=== PATIENT | female | born 1995 | race Caucasian/White ===

== ENCOUNTER 2020-02-29 05:07 | Inpatient (IN) | payer OTHER, SELFPAY ==
[2020-02-29] VITALS (112 sets, daily range): BP systolic 78–112; BP diastolic 39–69; PULSE 68–116; RESP 18; TEMP 36.9–37.2; O2SAT 99–100; BMI 28.4
--- NOTE | 2020-02-29 05:31 | LDADM ---
This patient, Kristina Denny, was admitted to Labor/Delivery/Recovery 103 on 02/29/20 at 05:07. Plans for labor, pain management and were discussed with patient. Patient/family oriented to hospital policies and general routines including ID bracelet, bed and alarms, visiting hours, pain management, procedures, bathroom and other care routines, personal items, smoking policy, room service/diet and guest tray routines, security routines, and visiting hours. Patient/Family are encouraged to report perceived risks to care and to ask questions if they do not understand what they are told or what they should do. See OBIX for further documentation.
[2020-02-29] MEDS: LACTATED RINGERS 1,000 ML 125 ML IV CONT ×2 (05:51→08:16)
[2020-02-29] MEDS: OXYTOCIN 30 UNITS/NS 500 ML 30 UNITS/500 ML BAG IV CONT (05:52)
[2020-02-29 06:04] LABS: Basophils Percent Auto 0.1 % (0.2-1.2); Eosinophils Absolute Auto 0.1 K/mm3 (0-0.3); Eosinophils Percent Auto 0.9 % (0-4.4); Hematocrit 35.6 % (37.0-47.0); Hemoglobin 11.6 g/dL (12.0-15.0); Immature Granulocyte Absolute 0.02 K/mm3 (0.00-0.031); Immature Granulocyte Percent A 0.3 % (0-0.5); Lymphocytes Absolute Auto 0.97 K/mm3 (0.9-3.2); Lymphocytes Percent Auto 14.4 % (18.3-44.2); Mean Corpuscular HGB Conc 32.6 g/dl (32-36); Mean Corpuscular Hemoglobin 30.9 pg (26-34); Mean Corpuscular Volume 94.9 fl (80-100); Mean Platelet Volume 11.4 fl (7.4-10.4); Monocytes Absolute Auto 0.7 K/mm3 (0.1-0.6); Monocytes Percent Auto 10.4 % (2.6-8.5); Neutrophils Percent Auto 73.9 % (45.5-73.1); Platelet Count Result 145 k/mm3 (150-375); Red Blood Count 3.75 M/mm3 (4.2-5.4); Red Cell Distribution Width 14.2 % (11.5-14.5); White Blood Count 6.8 K/mm3 (4.5-10.0)
--- NOTE | 2020-02-29 07:09 | WPDOBADMIT ---
Obstetrics - Admit Note Admission Note: record reviewed. No pertinent additions to the history and/or any subsequent changes in the physical findings that are not consistent with the expected course of the were found. Additions to the history and/or subsequent changes in the physical findings follow. None.Here for MIL. Cervix 2-3/50/-3 posterior AROM with clear fluid. FHTs reactive
--- NOTE | 2020-02-29 09:00 | P.PNAN_ITS ---
Anes - Eval Pre Procedure Procedure: Labor Epidural Date/Time: 02/29/20 09:00 Surgeon: Yoselin Preop Diagnosis: Labor Pain Pre Op Diagnosis: Induction Patient Data Age: 24 Gender: F Height: 5 ft 2 in Weight: 70.5 kg Last Vital Signs Temp 37.2 C 02/29/20 08:30 Pulse 84 02/29/20 08:46 BP 99/53 L 02/29/20 08:46 Pulse Ox 99 02/29/20 08:58 Allergies Allergy/AdvReac Type Severity Reaction Status Date / Time venom-honey bee Allergy Mild SWELLING Verified 02/29/20 05:50 Home Medications Medication Instructions Recorded Confirmed Type 1 tablet PO DAILY 10/26/19 02/29/20 History Laboratory Tests 02/29/20 02/29/20 02/29/20 05:45 05:45 05:45 WBC 6.8 K/mm3 K/mm3 (4.5-10.0) RBC 3.75 M/mm3 L M/mm3 (4.2-5.4) Hgb 11.6 g/dL L g/dL (12.0-15.0) Hct 35.6 % L % (37.0-47.0) MCV 94.9 fl fl (80-100) MCH 30.9 pg pg (26-34) MCHC 32.6 g/dl g/dl (32-36) RDW 14.2 % % (11.5-14.5) Plt Count 145 k/mm3 L k/mm3 (150-375) MPV 11.4 fl H fl (7.4-10.4) Immature Gran % (Auto) 0.3 % % (0-0.5) Neut % (Auto) 73.9 % H % (45.5-73.1) Lymph % (Auto) 14.4 % L % (18.3-44.2) [place] % (Auto) 10.4 % H % (2.6-8.5) Eos % (Auto) 0.9 % % (0-4.4) Baso % (Auto) 0.1 % L % (0.2-1.2) Lymph # (Auto) 0.97 K/mm3 K/mm3 (0.9-3.2) [place] # (Auto) 0.7 K/mm3 H K/mm3 (0.1-0.6) Eos # (Auto) 0.1 K/mm3 K/mm3 (0-0.3) Baso # (Auto) 0.0 K/mm3 K/mm3 (0.0-0.1) Abs Immat Gran (auto) 0.02 K/mm3 K/mm3 (0.00-0.031) Absolute Neuts (auto) 5.0 K/mm3 K/mm3 (1.3-6.7) Absolute Nucleated RBC 0.0 K/mm3 K/mm3 (0.0-0.012) Nucleated RBC % 0.0 % % (0.0-0.2) RPR Pending Blood Type A Positive Antibody Screen Negative Patient hx anesthesia problems: none Family hx anesthesia problems: none PMFSH Family History Family History Sibling Heart attack Father Cerebrovascular accident Thyroid cancer Social History Social History Smoking status: Never smoker Second hand tobacco smoke exposure: No Substance use: never Gender identity (if verbalized by the patient): Female Spiritual care concerns: No Exam Day of Procedure 02/29/20 09:00 Patient weight: normal Heart: regular rate and rhythm Lungs: clear to auscultation Airway: Mallampati scale class 1 Neurological: alert and oriented
[2020-02-29 10:10] LABS: Rapid Plasma Reagin Non-Reactive (NonReactive)
--- NOTE | 2020-02-29 13:51 | PM.OBPRVD ---
OB - Delivery Note Procedure Delivery date: 02/29/20 Procedure: events: Labor Induction Intrapartal events: None Induction method: AROM and per pitocin protocol Delivery monitor: external FHT and external uterine Route of delivery: Laceration description: Perineal - 1st Degree (and 1st degree periurethral) Delivery repair: vicryl (3-0 vicryl) Specimen: No Estimated blood loss (mL): 100 Anesthesia type: Epidural Disposition: floor Baby Weeks of gestation at delivery: 39 gender: Female presentation: vertex cord vessel description: 3 Vessels score one minute: 9 score five minutes: 9
--- NOTE | 2020-02-29 13:52 | PM.OBDSVD ---
DS: Diagnosis Discharge Diagnosis (1) 39 weeks gestation of : Code(s): Z3A.39 - 39 weeks gestation of Status: Acute (2) (normal spontaneous vaginal delivery): Code(s): O80 - Encounter for full-term uncomplicated delivery Status: Acute OB - DS: Summary OB Procedures : Ultrasound OB Procedures Intrapartum: Spontaneous Vag Delivery OB Procedures: : None Peripartum Data Delivery Method: Natural Vaginal Laceration description: Perineal - 1st Degree complications: none Status at Discharge Functional status at discharge: independent ambulation Overall status at discharge: patient is progressing back to baseline Time Spent with Patient Time attestation: Total time spent providing and/or coordinating discharge services: DS: Data Data Completed and Pending Labs on day of discharge: Labs from last 24 hours 02/29/20 02/29/20 02/29/20 05:45 05:45 05:45 WBC 6.8 RBC 3.75 L Hgb 11.6 L Hct 35.6 L MCV 94.9 MCH 30.9 MCHC 32.6 RDW 14.2 Plt Count 145 L MPV 11.4 H Immature Gran % (Auto) 0.3 Neut % (Auto) 73.9 H Lymph % (Auto) 14.4 L [place] % (Auto) 10.4 H Eos % (Auto) 0.9 Baso % (Auto) 0.1 L Lymph # (Auto) 0.97 [place] # (Auto) 0.7 H Eos # (Auto) 0.1 Baso # (Auto) 0.0 Abs Immat Gran (auto) 0.02 Absolute Neuts (auto) 5.0 Absolute Nucleated RBC 0.0 Nucleated RBC % 0.0 RPR Non-reactive Blood Type A Positive Antibody Screen Negative Discharge Plan Discharge Attending physician on discharge: Mary Wyatt Discharging Clinician: Mary Wyatt Anticipated Discharge Date/Time: 03/02/20 07:53 Patient Disposition: Home, Self-Care Activity: pelvic rest Diet: regular Discharge Instructions: Education: Mom and Baby Guide Given to: Mother Follow-Up: Call your delivering provider's office for an appointment to be seen in: 6 Weeks Mom and baby [facility] come [facility] for the follow-up appointment. Appointment Date/Time: March 02, 2020 at 8:00 am What to expect at your follow-up visit: Blood Pressure Check Physical Assessment Call [phone] if you are unable to keep your appointment time. BREAST CARE: 1. Wear a snug supportive bra. 2. For engorgement discomfort: Breast Feeding: A. Apply warm moist washcloths B. Express milk as needed to relieve engorgement C. Wear loose clothing 3. For sore nipples: A. Identify correct latch-on B. Apply warm moist washcloths before and after nursing C. Air dry nipples after nursing D. May apply Lansinoh cream to nipples EPISIOTOMY/PERINEAL CARE: 1. Until bleeding stops, use your nohemy bottle after urinating 2. Change your pad frequently throughout the day 3. You may take sitz baths several times a day (fill your bathtub with warm water and soak for 20 minutes.) Do NOT bathe in the water 4. No tub baths until seen by your physician - You may shower ACTIVITY: 1. Rest as much as possible. 2. Do not exercise or lift anything heavier than your baby (such as laundry or other children.) 3. Avoid stairs or driving as much as possible. 4. Do not put anything into the vagina. No douching, tampons, or sexual activity until seen by physician. NOTIFY PHYSICIAN IF YOU HAVE ANY QUESTIONS OR IF ANY OF THE FOLLOWING SYMPTOMS OCCUR: 1. If your episiotomy becomes red, swollen, or more painful than what you have experienced in the hospital. 2. If your vaginal bleeding becomes foul smelling. 3. If your vaginal bleeding becomes more heavy than a period or if your bleeding changes from pink to bright red. However, you may pass an occasional walnut-sized clot once or twice for the first week . 4. If you experience a sharp, shooting pain in you calves. 5. If you discover a hard, reddened area on
[2020-02-29] MEDS: OXYTOCIN 30 UNITS/NS 500 ML 30 UNITS/500 ML BAG 125 UNITS IV CONT (14:17)
[2020-02-29] MEDS: BENZOCAINE 20% AER SPR (*SP) 56 GM CAN 1 SPRAY TOPICAL (15:29)
[2020-02-29] MEDS: WITCH HAZEL 40 PADS 1 PAD TOPICAL (15:29)
[2020-02-29] MEDS: IBUPROFEN 600 MG TABLET PO (15:29)
--- NOTE | 2020-02-29 17:45 | PC.NURSE ---
Patient transferred to post room #291 via wsheelchair. Support person present. Oriented to unit, room, information board, rooming in, admission packet and security measures. Patient verbalizes understanding.
[2020-03-01] MEDS: IBUPROFEN 600 MG TABLET PO ×2 (02:15→08:22)
[2020-03-01 05:12] LABS: Hematocrit 31.8 % (37.0-47.0)
[2020-03-01 08:00] VITALS: BP 94/61; PULSE 89; RESP 18; TEMP 36.6
[2020-03-01] MEDS: MULTIVIT/MIN/PREN/FOL AC/IRON TABLET 1 TAB PO (08:22)
[2020-03-01] MEDS: BENZOCAINE 20% AER SPR (*SP) 56 GM CAN 1 SPRAY TOPICAL (08:22)
[2020-03-01] MEDS: DOCUSATE SODIUM 100 MG CAPSULE PO (08:22)
[2020-03-01] MEDS: WITCH HAZEL 40 PADS 1 PAD TOPICAL (08:22)
--- NOTE | 2020-03-01 09:47 | PM.OBPNVD ---
OB - PN: Subj Subjective Date/time seen: 03/01/20 09:47 S: doing well no complaints desires home today OB - PN: Obj Data Labs CBC & Chem 7: 03/01/20 04:50 Labs: Laboratory Results - last 24 hr 02/29/20 03/01/20 05:45 04:50 Hgb 10.0 L Hct 31.8 L RPR Non-reactive OB - PN A/P Assessment and Plan (1) (normal spontaneous vaginal delivery): Code(s): O80 - Encounter for full-term uncomplicated delivery Status: Acute Assessment and Plan: d/c home . patient unsure of control at this time. Time Spent With Patient Time: Total time spent is greater than 50% in coordination of care (as documented) at patient's floor/unit and/or counseling patient: Exam GI: Other: firm fundus below umbilicus
--- NOTE | 2020-03-01 11:00 | PC.NURSE ---
Patient was given the opportunity to view the discharge video Mother & Baby Care, The First Two Weeks and to ask questions. Patient declined viewing the video and has been given the mother/baby guide for home reference.
--- NOTE | 2020-03-01 13:53 | PC.NURSE ---
Self care and infant care discharge instructions given including follow up visit date and time. Mother verbalized understanding. No questions or concerns voiced. Very pleasant and cooperative. at side.
--- NOTE | 2020-03-01 13:57 | WPDANLDPN2 ---
Anes-Prog Note L&D Date/Time: 03/01/20 13:57 Comfortable throughout: labor and delivery Neuraxial method: epidural Epidural/Spinal procedure site: clean & non-tender Neuro status: Neuro function grossly intact. Cardiovascular status: normal Respiratory status: normal Airway patency: baseline Mental status: baseline Post-Op hydration status: normal Vital Signs: Last Vital Signs Temp 36.6 C 03/01/20 08:00 Pulse 89 03/01/20 08:00 Resp 18 03/01/20 08:00 BP 94/61 L 03/01/20 08:00 Pulse Ox 100 02/29/20 13:28 Post-procedural complaints: none Patient feedback: Patient satisfied with anesthetic care.
[2020-03-02 08:47] VITALS: BP 107/60; PULSE 79; RESP 16; TEMP 36.9
== END 2020-03-01 15:34 | disposition home or self-care (01) | DRG 806 ==
LOC: ANHLDR 13:53 → ANHOB2 03-01 13:58 → ANHLDR 03-02 11:33 → ANHOB2 03-02 11:33
PROVIDERS: Admitting Provider Obstetrics & Gynecology Gynecology; Visit Provider Obstetrics & Gynecology
DX: O69.81X0 Labor and delivery complicated by cord around neck, without compression, not applicable or unspecified (principal); S37.33XA Laceration of urethra, initial encounter; Z37.0 Single live birth; Z3A.39 39 weeks gestation of pregnancy; Z23 Encounter for immunization
CPT/HCPCS: 36415; 85014; 85018; 85025; 86592; 86850; 86900; 86901; A9270; J2590; J2795; J7120

== ENCOUNTER 2022-05-28 17:01 | Emergency (ER) | payer OTHER, SELFPAY ==
[2022-05-28 17:16] VITALS: BP 119/55; PULSE 75; RESP 16; TEMP 36.5; O2SAT 100
--- NOTE | 2022-05-28 17:17 | ED_ITS ---
HPI - Back Pain/Injury General Chief Complaint: Back Pain/Injury Stated Complaint: back pain Time Seen by Provider: 05/28/22 17:17 History of Present Illness HPI Narrative: 26-year-old female presents to the emergency room complaints of lower back pain. Patient states pain began about an hour ago and is worse with rotational and lateral bending movements. Patient denies any radiating pain, any paresthesias. Patient denies any difficulty with her bowel or bladder habits. Denies any saddle anesthesia. Denies injury. Related Data Home Medications Medication Instructions Recorded Confirmed vit no.133-ferrous 1 tablet PO DAILY 10/26/19 02/29/20 fumarate 28 mg-folic acid 800 mcg tablet () Allergies Allergy/AdvReac Type Severity Reaction Status Date / Time venom-honey bee Allergy Mild SWELLING Verified 05/28/22 17:15 Review of Systems Review of Systems: GENERAL: Well-appearing, well-nourished, no physical limitations, and in no acute distress. HEAD: Normocephalic, atraumatic. EYES: Conjunctivae normal, PERRLA and EOMI. CHEST: Clear to auscultation. No respiratory distress. No wheezes rales or rhonchi. No tenderness. HEART: Regular rate and rhythm. No murmur heard. Normal peripheral pulses. BACK: No CVA tenderness; No cervical/thoracic/lumbar tenderness, step-offs, bony abnormality; FROM; and elicited with bilateral rotation, forward flexion, lateral bend. Tenderness over the thoracolumbar fascia. EXTREMITIES: Normal range of motion. No edema. No clubbing or cyanosis SKIN: Warm, dry, no rash. No noted wounds NEURO: No focal deficits. Alert and oriented x3. MAEW. CN's II-XI intact bilaterally, normal gait PSYCH: Cooperative. Normal mood and affect. [facility] Family History Family History Sibling Heart attack Father Cerebrovascular accident Thyroid cancer Social History Social History Smoking status: Never smoker Second hand tobacco smoke exposure: No Substance use: never Gender identity (if verbalized by the patient): Female Spiritual care concerns: No Discharge Plan Discharge Clinical Impression: Low back pain Patient Disposition: Home, Self-Care Condition: Stable Instructions: Antibiotic Form, Back Pain (ED) Additional Instructions: May apply heat to the affected area. Your pain is reproduced with movement, which indicates that this is muscular pain also encourage you to stretch. Return if you develop any numbness or tingling in your saddle area, or become incontinent of your bowel or bladder. Prescriptions: New methocarbamol 500 mg tablet 500 mg PO TID 7 Days Qty: 21 0RF naproxen 500 mg tablet 500 mg PO BID 7 Days Qty: 14 0RF No Action 28-800 mg-mcg Tablet 1 tablet PO DAILY Dermoplast (with menthol) 20-0.5 % Aerosol 1 spray topical PRN PRN (Reason: Perineal Discomfort) 0RF KPN Tablet 1 tab PO DAILY 0RF Follow-up/Referrals: Carolina,Jef Denny MD [Primary Care Provider] - Time of Disposition: 17:21
== END 2022-05-28 17:30 | disposition home or self-care (01) ==
PROVIDERS: Emergency Provider Nurse Practitioner Family; PCP Family Medicine
DX: M54.50 Low back pain, unspecified (principal)
CPT/HCPCS: 99283

== ENCOUNTER 2024-10-14 10:24 | Outpatient (CLI) | payer BC, SELFPAY ==
--- NOTE | ~2024-10-14 | US_ITS ---
EXAMINATION: US OB follow up DATE: 10/14/2024 10:46 INDICATION: Size less than dates. Third trimester. TECHNIQUE: Real-time ultrasound of the pelvis was performed. COMPARISON: None. FINDINGS: There is a single living fetus in vertex presentation. The placenta is anterior. heart rate is 138 beats per minute (bpm). The amniotic fluid index is 12.2 cm, which is normal. The following biometric data were obtained: Biparietal diameter (BPD): 8.6 cm; head circumference (HC): 31.8 cm; abdominal circumference (AC): 30 .5 cm; femur length (FL): 6.6 cm. These measurements are concordant. Estimated weight is 2433 g +/- 365 g, which correlates with the 38th percentile when 11/20/24 is used as estimated date of delivery. As single measurements, these parameters are each equal to the following estimated gestational ages: BPD: 34 weeks 5 days. HC: 35 weeks 5 days. AC: 34 weeks 3 days. FL: 33 weeks 6 days. estimated gestational age based solely on measurements from this exam is 34 weeks 5 days +/- 2 weeks 3 days. IMPRESSION: 1. Single living fetus in vertex presentation. 2. Estimated weight is 2433 g +/- 365 g, which correlates with the 38th percentile when 5 is used as estimated date of delivery. Reviewed, dictated and finalized at location A. FA[employer]URING OPERATIONS MANAGER IMPRESSION: 1. Single living fetus in vertex presentation. 2. Estimated weight is 2433 g +/- 365 g, which correlates with the 38th percentile when 11/20/24 is used as estimated date of delivery.
== END 2024-10-14 10:25 | disposition home or self-care (01) ==
PROVIDERS: PCP Advanced Practice Midwife; Visit Provider Advanced Practice Midwife
DX: O36.5930 Maternal care for other known or suspected poor fetal growth, third trimester, not applicable or unspecified (principal); Z3A.00 Weeks of gestation of pregnancy not specified
CPT/HCPCS: 76816

== ENCOUNTER 2024-11-22 06:15 | Inpatient (IN) | payer BC, SELFPAY ==
[2024-11-22] VITALS (125 sets, daily range): BP systolic 69–121; BP diastolic 38–85; PULSE 70–204; RESP 18; TEMP 36.2–36.8; O2SAT 97–100; BMI 30.2
--- NOTE | 2024-11-22 06:15 | LDADM ---
This patient, Kristina Denny, was admitted to Labor/Delivery/Recovery 108 on 11/22/24 at 06:15. Plans for labor, pain management and were discussed with patient. Patient/family oriented to hospital policies and general routines including ID bracelet, bed and alarms, visiting hours, pain management, procedures, bathroom and other care routines, personal items, smoking policy, room service/diet and guest tray routines, security routines, and visiting hours. Patient/Family are encouraged to report perceived risks to care and to ask questions if they do not understand what they are told or what they should do. See OBIX for further documentation.
[2024-11-22 08:15] LABS: Basophils Percent Auto 0.1 % (0.2-1.2); Eosinophils Absolute Auto 0.1 K/mm3 (0-0.3); Eosinophils Percent Auto 1.1 % (0-4.4); Hematocrit 33.7 % (37.0-47.0); Hemoglobin 10.3 g/dL (12.0-15.0); Immature Granulocyte Absolute 0.03 K/mm3 (0.00-0.031); Immature Granulocyte Percent A 0.4 % (0-0.5); Lymphocytes Absolute Auto 1.31 K/mm3 (0.9-3.2); Lymphocytes Percent Auto 17.4 % (18.3-44.2); Mean Corpuscular HGB Conc 30.6 g/dl (32-36); Mean Corpuscular Hemoglobin 27.1 pg (26-34); Mean Corpuscular Volume 88.7 fl (80-100); Mean Platelet Volume 10.8 fl (7.4-10.4); Monocytes Absolute Auto 0.7 K/mm3 (0.1-0.6); Monocytes Percent Auto 8.7 % (2.6-8.5); Neutrophils Absolute Auto 5.5 K/mm3 (1.3-6.7); Neutrophils Percent Auto 72.3 % (45.5-73.1); Platelet Count Result 186 k/mm3 (150-375); Red Cell Distribution Width 17.1 % (11.5-14.5); White Blood Count 7.6 K/mm3 (4.5-10.0)
[2024-11-22] MEDS: LACTATED RINGERS 1,000 ML 125 ML IV CONT (08:19)
[2024-11-22] MEDS: OXYTOCIN 30 UNITS/NS 500 ML 30 UNITS/500 ML BAG IV CONT (08:20)
[2024-11-22 09:06] LABS: HIV 1/2 Ab P24 Ag Result Negative (Negative)
--- NOTE | 2024-11-22 09:40 | WPDOBADMIT ---
Obstetrics - Admit Note Admission Note: record reviewed. No pertinent additions to the history and/or any subsequent changes in the physical findings that are not consistent with the expected course of the were found. Additions to the history and/or subsequent changes in the physical findings follow. Here for MIL at 39 wks. Cervix now 3-4/70/-2 AROM with clear fluid. FHTs reactive.
[2024-11-22 10:53] LABS: Rapid Plasma Reagin Non-Reactive (NonReactive)
--- NOTE | 2024-11-22 11:02 | P.PNAN_ITS ---
Anes - Eval Pre Procedure Procedure: Labor epidural Date/Time: 11/22/24 11:02 Surgeon: Yoselin Preop Diagnosis: Pain during labor Pre Op Diagnosis: Induction of Labor Patient Data Age: 29 Gender: F Height: 1.57 m Weight: 75 kg Last Vital Signs Temp 36.6 C 11/22/24 09:16 Pulse 92 11/22/24 11:00 BP 73/47 L 11/22/24 11:00 O2 Del Method Room Air 11/22/24 10:41 Allergies Allergy/AdvReac Type Severity Reaction Status Date / Time venom-honey bee Allergy Mild SWELLING Verified 05/28/22 17:15 Home Medications ?Medication ?Instructions ?Recorded ?Confirmed ?Type vit no.133-ferrous 1 tablet PO DAILY 10/26/19 11/22/24 History fumarate 28 mg-folic acid 800 mcg tablet () benzocaine 20 %-menthol 0.5 % 1 spray topical PRN PRN Perineal 03/01/20 10/25/24 Rx topical aerosol (Dermoplast (with Discomfort menthol)) prenat.vits,xiomara,flp-eexj-rwzsp 1 tab PO DAILY 03/01/20 11/22/24 Rx (KPN tablet) naproxen 500 mg tablet 500 mg PO BID 7 days #14 tabs 05/28/22 10/25/24 Rx aspirin 81 mg capsule 81 mg PO DAILY 10/25/24 11/22/24 History cholecalciferol (vitamin D3) 50 50 mcg PO DAILY 10/25/24 11/22/24 History mcg (2,000 unit) tablet (D3 DOTS) ferric maltol 30 mg capsule 30 mg PO BID 10/25/24 10/25/24 History (Accrufer) Laboratory Tests 11/22/24 08:01 WBC 7.6 K/mm3 (4.5-10.0) RBC 3.80 L M/mm3 (4.2-5.4) Hgb 10.3 L g/dL (12.0-15.0) Hct 33.7 L % (37.0-47.0) MCV 88.7 fl (80-100) MCH 27.1 pg (26-34) MCHC 30.6 L g/dl (32-36) RDW 17.1 H % (11.5-14.5) Plt Count 186 k/mm3 (150-375) MPV 10.8 H fl (7.4-10.4) Immature Gran % (Auto) 0.4 % (0-0.5) Neut % (Auto) 72.3 % (45.5-73.1) Lymph % (Auto) 17.4 L % (18.3-44.2) [place] % (Auto) 8.7 H % (2.6-8.5) Eos % (Auto) 1.1 % (0-4.4) Baso % (Auto) 0.1 L % (0.2-1.2) Lymph # (Auto) 1.31 K/mm3 (0.9-3.2) [place] # (Auto) 0.7 H K/mm3 (0.1-0.6) Eos # (Auto) 0.1 K/mm3 (0-0.3) Baso # (Auto) 0.0 K/mm3 (0.0-0.1) Abs Immat Gran (auto) 0.03 K/mm3 (0.00-0.031) Absolute Neuts (auto) 5.5 K/mm3 (1.3-6.7) Absolute Nucleated RBC 0.000 K/mm3 (0.0-0.012) Nucleated RBC % 0.0 % (0.0-0.2) RPR Non-reactive (NonReactive) HIV 1&2 Ab/P24 Ag 4thGn Negative (Negative) Blood Type A Positive Antibody Screen Negative Patient hx anesthesia problems: none Family hx anesthesia problems: none Results Review: All pre-operative results and documents have been reviewed as part of the pre- operative evaluation. [facility] Family History Family History Sibling Thyroid cancer Father Cerebrovascular accident Heart attack Hypertension Social History Social History Smoking status: Never smoker Second hand tobacco smoke exposure: No Substance use: never Do You Feel Safe in your Home?: Yes Lack of Transportation: No Lack of Food: Never True Current Housing: I Have Housing Concerned About Future Housing: No Difficulty Paying Gas/Electric Bills: No Difficulty Paying for Meds: No Currently Unemployed: No Education: Bachelor's Degree Difficulty w/ Childcare or Family Care: No Gender identity (if verbalized by the patient): Female Spiritual care concerns: No Exam Day of Procedure 11/22/24 11:02 Patient weight: overweight Heart: regular rate and rhythm Lungs: clear to auscultation Airway: Mallampati scale Neurological: alert and oriented
--- NOTE | 2024-11-22 15:26 | PM.OBPRVD ---
OB - Vaginal Delivery Note Procedure Delivery date: 11/22/24 Induction method: AROM and Per Pitocin Protocol Delivery monitor: External FHT and External Uterine Route of delivery: Episiotomy description: None Laceration Description: Perineal - 1st Degree Specimen: No Quantitative Blood Loss (ml): 50 Anesthesia type: Epidural Disposition: Floor Complications: No immediate complications Baby Date of : 11/22/24 Gestational Age by Date: 39 gender: Female presentation: vertex position: Right Occiput Anterior Placenta delivery description: Spontaneous Cord Vessel Description: 3 Vessels and Delayed Cord Clamping score one minute: 9 score five minutes: 9
--- NOTE | 2024-11-22 15:27 | PM.OBDSVD ---
DS: Admitting Diagnosis Discharge Date 11/23/24 Admitting Diagnosis IUP 39 wks for IMELDA DS: Discharge Diagnosis Discharge Diagnosis (1) (normal spontaneous vaginal delivery): Code(s): O80 - Encounter for full-term uncomplicated delivery Status: Acute OB - DS: Summary OB Procedures : Ultrasound OB Procedures Intrapartum: Spontaneous Vag Delivery OB Procedures: : None Peripartum Data Infant Delivery Method: Natural Vaginal Laceration Description: Perineal - 1st Degree Episiotomy description: None complications: none Status at Discharge Functional status at discharge: independent ambulation Overall status at discharge: patient is progressing back to baseline Time Spent with Patient Time attestation: Total time spent providing and/or coordinating discharge services: DS: Data Data Completed and Pending Labs on day of discharge: Labs from last 24 hours 11/22/24 08:01 WBC 7.6 RBC 3.80 L Hgb 10.3 L Hct 33.7 L MCV 88.7 MCH 27.1 MCHC 30.6 L RDW 17.1 H Plt Count 186 MPV 10.8 H Immature Gran % (Auto) 0.4 Neut % (Auto) 72.3 Lymph % (Auto) 17.4 L [place] % (Auto) 8.7 H Eos % (Auto) 1.1 Baso % (Auto) 0.1 L Lymph # (Auto) 1.31 [place] # (Auto) 0.7 H Eos # (Auto) 0.1 Baso # (Auto) 0.0 Abs Immat Gran (auto) 0.03 Absolute Neuts (auto) 5.5 Absolute Nucleated RBC 0.000 Nucleated RBC % 0.0 RPR Non-reactive HIV 1&2 Ab/P24 Ag 4thGn Negative Blood Type A Positive Antibody Screen Negative Discharge Plan Discharge Attending physician on discharge: Mary Wyatt Discharging Clinician: Mary Wyatt Anticipated Discharge Date/Time: 11/24/24 15:27 Patient Disposition: Home, Self-Care Activity: may shower and pelvic rest Diet: regular Patient Instructions: Antibiotic Form Patient Language: Austrian Stand Alone Forms: General Discharge Information Follow-up/Referrals: Mary Wyatt MD [Physician] - 6 Weeks Discharge Medications: Continued 28-800 mg-mcg Tablet 1 tablet PO DAILY Dermoplast (with menthol) 20-0.5 % Aerosol 1 spray topical PRN PRN (Reason: Perineal Discomfort) 0RF KPN Tablet 1 tab PO DAILY 0RF naproxen 500 mg tablet 500 mg PO BID 7 Days Qty: 14 0RF cholecalciferol (vitamin D3) [D3 DOTS] 50 mcg (2,000 unit) tablet 50 mcg PO DAILY Accrufer 30 mg capsule 30 mg PO BID Discontinued aspirin 81 mg capsule 81 mg PO DAILY Date of admission: 11/22/24 06:15 Primary Care Provider: UNKNOWN,DOCTOR Admitting Provider: Mary Wyatt Attending physician on admission: Mary Wyatt Condition: Stable
[2024-11-22] MEDS: METHYLERGONOVINE MALEATE 0.2 MG/ML VIAL IM (15:32)
[2024-11-22] MEDS: OXYTOCIN 30 UNITS/NS 500 ML 30 UNITS/500 ML BAG 125 UNITS IV CONT (16:07)
[2024-11-23 00:11] VITALS: BP 96/58; PULSE 86; RESP 16; TEMP 36.8; O2SAT 98
[2024-11-23 04:56] LABS: Hematocrit 31.6 % (37.0-47.0); Hemoglobin 9.8 g/dL (12.0-15.0)
--- NOTE | 2024-11-23 07:52 | WPDANLDPN2 ---
Anes-Prog Note L&D Date/Time: 11/23/24 07:52 Comfortable throughout: labor and delivery Neuraxial method: epidural Epidural/Spinal procedure site: clean & non-tender Neuro status: Neuro function grossly intact. Cardiovascular status: normal Respiratory status: normal Airway patency: baseline Mental status: baseline Post-Op hydration status: normal Vital Signs: Last Vital Signs Temp 36.8 C 11/23/24 00:11 Pulse 86 11/23/24 00:11 Resp 16 11/23/24 00:11 BP 96/58 L 11/23/24 00:11 Pulse Ox 98 11/23/24 00:11 O2 Del Method Room Air 11/22/24 19:28 Pain score (VAS): 11/19 I/O: Intake & Output 11/22/24 11/22/24 11/23/24 15:59 23:59 07:59 Intake Total 500 Output Total 50 150 Balance -50 350 Post-procedural complaints: none Patient feedback: Patient satisfied with anesthetic care.
--- NOTE | 2024-11-23 08:04 | P.PNOB_ITS ---
OB - PN: Subj Subjective Date/time seen: 11/23/24 08:04 Patient comments: no complaints and pain well controlled baby status: doing well OB - PN: Obj Data Labs 11/23/24 03:33 Labs: Laboratory Results - last 24 hr 11/22/24 11/23/24 08:01 03:33 WBC 7.6 RBC 3.80 L Hgb 10.3 L 9.8 L Hct 33.7 L 31.6 L MCV 88.7 MCH 27.1 MCHC 30.6 L RDW 17.1 H Plt Count 186 MPV 10.8 H Immature Gran % (Auto) 0.4 Neut % (Auto) 72.3 Lymph % (Auto) 17.4 L [place] % (Auto) 8.7 H Eos % (Auto) 1.1 Baso % (Auto) 0.1 L Lymph # (Auto) 1.31 [place] # (Auto) 0.7 H Eos # (Auto) 0.1 Baso # (Auto) 0.0 Abs Immat Gran (auto) 0.03 Absolute Neuts (auto) 5.5 Absolute Nucleated RBC 0.000 Nucleated RBC % 0.0 RPR Non-reactive HIV 1&2 Ab/P24 Ag 4thGn Negative Blood Type A Positive Antibody Screen Negative OB - PN A/P Plan day: 1 Plan: routine care, discharge home and follow up 6 weeks Time Spent With Patient Time: Total time spent is greater than 50% in coordination of care (as documented) at patient's floor/unit and/or counseling patient: Exam 2 : Bimanual exam- vagina & uterus: other (Uterus firm, nt @U)
[2024-11-23 08:10] VITALS: BP 106/62; PULSE 84; RESP 18; TEMP 36.8; O2SAT 97
[2024-11-23] MEDS: DOCUSATE SODIUM 100 MG CAPSULE PO ×2 (08:46→16:19)
[2024-11-23] MEDS: MULTIVIT/MIN/PREN/FOL AC/IRON TABLET 1 TAB PO (08:46)
[2024-11-23] MEDS: POLYSACCHARIDE IRON COMPLEX 150 MG CAPSULE PO ×2 (08:46→16:19)
--- NOTE | 2024-11-23 09:00 | PC.NURSE ---
Introductions were made, consulted with patient regarding needs related to . Mother verbalizes she is able to independently latch with appropriate positioning and alignment. She denies any nipple discomfort and is responsively . is currently meeting outcomes for weight, output, jaundice, blood sugar and feeding frequencies of 8-12 times in 24 hours. Mother declines any additional assistance or education at this time. Mother is encouraged to call for assistance if her infant doesn?t latch, pain with latching, questions or concerns. New patient folder provided for education visuals.
[2024-11-23 12:35] VITALS: BP 97/57; PULSE 90; RESP 18; TEMP 36.6; O2SAT 97
[2024-11-23] MEDS: IBUPROFEN 600 MG TABLET PO (16:19)
[2024-11-23 19:15] VITALS: BP 116/54; PULSE 91; RESP 14; TEMP 36.7; O2SAT 98
[2024-11-24] MEDS: IBUPROFEN 600 MG TABLET PO (07:51)
[2024-11-24] MEDS: POLYSACCHARIDE IRON COMPLEX 150 MG CAPSULE PO (07:51)
[2024-11-24] MEDS: MULTIVIT/MIN/PREN/FOL AC/IRON TABLET 1 TAB PO (07:51)
[2024-11-24] MEDS: DOCUSATE SODIUM 100 MG CAPSULE PO (07:51)
--- NOTE | 2024-11-24 07:54 | P.PNOB_ITS ---
OB - PN: Subj Subjective Date/time seen: 11/24/24 07:54 Patient comments: no complaints and pain well controlled baby status: doing well OB - PN: Obj Data Labs 11/23/24 03:33 OB - PN A/P Plan day: 2 Plan: routine care, discharge home and follow up 6 weeks Time Spent With Patient Time: Total time spent is greater than 50% in coordination of care (as documented) at patient's floor/unit and/or counseling patient: Exam 2 : Bimanual exam- vagina & uterus: other (Uterus firm, nt @U)
[2024-11-24 08:20] VITALS: BP 98/54; PULSE 81; RESP 16; TEMP 36.8; O2SAT 99
--- NOTE | 2024-11-24 09:30 | PC.NURSE ---
Consulted with mother concerning needs and she shared her ability to independently latch infant optimally without pain. There is a doctor's order to supplement after each . Baby has been one one side at a time. Mom has a haakaa she will use for some passive pumping and she also has an electric breast pump. She declines a NCC referral. Mother is feeding appropriately for growth of infant and understands stimulating infant to eat if needed. Infant has had appropriate feedings in the last 24 hours meets the outcomes for weight, output, blood sugar and jaundice at this time. Reinforced understanding of milk production, transition of milk, signs of adequate intake, transition of stool, prevention/relief of engorgement, plugged ducts, mastitis, and when to call a provider using the resource of the feeding sheet along with the mom and baby guide. Mother voiced understanding of the information shared, is confident to continue effectively her infant at home, when to call for assistance, denies any additional assistance or education at this time. Reported to the Primary RN.
[2024-11-25 11:24] VITALS: BP 121/65; PULSE 76; RESP 18; TEMP 36.8; O2SAT 100
--- OUTSIDE RECORDS SUMMARY | 2024-11-29 03:56 | XMS_ITS | Encounter Summary ---
Author Organization [facility] Address [address] [place] [address] Phone Care Team Providers Care Process Treater Name Role Phone Jef Figueroa MD Primary Care Provider [phone] Reason for Visit * Reason Comments Sore Throat Encounter Details Date Type Department Care Team ([facility] Contact Info) Description 01/04/2021 9:10 AM SPECIAL CERTIFICATE DICTATOR [facility]gent [facility] [address] [place] [id number] Evie Mccord APRN, DIRECTOR OF PSYCHIATRY [address] [place] [address] Sore throat (Primary Dx); Acute nasopharyngitis Discharge Disposition: Discharged to home or Selfcare Social History Tobacco Use Types Packs/Day Years Used Date Smoking Tobacco: Never Smokeless Tobacco: Never Alcohol Use Standard Drinks/Week Comments Never 0 (1 standard drink = 0.6 oz pur e alcohol) AUDIT-C Answer Date Recorded Q1: How often do you have a drink containing alc ohol? Never 04/11/2020 Average Number of Drinks Not on file 020 Frequency of Binge Drinking Not on file 12/2019 PHQ-2 Answer Date Recorded Total Score - Questions 1-9 0 12/2019 Comments No Sex and Gender Information Value Date Recorded Sex Assigned at Not on file Legal Sex Female 9:33 AM CDT Gender Identity Not on file Sexual Orientation Not on file COVID-19 Exposure Response Date Recorded In the last month, have you been in contact with someone who was confirmed or suspected to have Coronavirus / COVID-19? No / Unsure 01/04/2021 9:08 AM SPECIAL CERTIFICATE DICTATOR documented as of this encounter Last Filed Vital Signs Vital Sign Reading Time Taken Comments Blood Pressure 114/60 01/04/2021 9:24 AM SPECIAL CERTIFICATE DICTATOR Pulse 113 01/04/2021 9:24 AM SPECIAL CERTIFICATE DICTATOR Temperature 36.2 ??C (97.2 ??F) 01/04/2021 9:24 AM CS T Respiratory Rate 20 01/04/2021 9:24 AM SPECIAL CERTIFICATE DICTATOR Oxygen Saturation 98% 01/04/2021 9:24 AM SPECIAL CERTIFICATE DICTATOR Inhaled Oxygen Concentration - - Weight 62.6 kg (138 lb) 01/04/2021 9:24 AM SPECIAL CERTIFICATE DICTATOR Height - - Body Mass Index 23.69 04/11/2020 8:51 AM CDT documented in this encounter Patient Instructions * Patient Instructions* Evie Mccord APN, DIRECTOR OF PSYCHIATRY - 01/04/2021 9:10 AM SPECIAL CERTIFICATE DICTATOR Images from the original note were not included. Adult Self-Care for Colds Colds are caused by viruses. They can't be cured with antibiotics. But you can ease symptoms and support your body's efforts to heal itself. No matter which symptoms you have, be sure to: ?? Drink plenty of fluids (water or clear soup) ?? Stop smoking and drinking alcohol ?? Get plenty of rest ?? Stay away from secondhand smoke Understand a fever ?? Take your temperature several times a day. If your fever is?? 100.4?? F??( 38??C ) for more thana day, call your healthcare provider. ?? Relax, lie down. Go to bed if you want. Just get off your feet and rest. Also drink plenty of fluids to prevent dehydration. ?? Take acetaminophen or a nonsteroidal anti-inflammatory drug (NSAID) such as ibuprofen. Treating a stuffy nose ?? Breathe steam or heated humidified air to open blocked nasal passages. multimedia instructional designer a hot shower or use a vaporizer. Be careful not to get burned by the steam. ?? Saline nasal sprays and decongestant tablets help open a stuffy nose. Antihistamines can also help. But they can cause side effects. These include drowsiness and drying of the eyes, nose, and mouth. Soothe a sore throat and cough ?? Gargle every?? 2??hours with?? 1/4??teaspoon of salt dissolved in?? 1/2 cup of warm water. Suck on throat lozenges and cough drops to moisten your throat. ?? Cough medicines are available. But it's not clear how well they work. ?? Take acetaminophen or an NSAID, such as ibuprofen, to ease throat pain. Follow package directions on how much to use and how often to take the medicine. Ease digestive problems ?? Put fluids back into your body. Take frequent sips of clear liquids such as water or broth. [place] from drinks that have a lot of sugar in them. These include juices and sodas. These can make diarrhea worse. Older children and adults can drink sports drinks. ?? As your appetite returns, you can go back to your normal diet. Ask your healthcare provider if there are any foods you should not have. When to call your healthcare provider When you first notice symptoms, ask your provider if you should take antiviral medicines.??Antibiotics should not be taken for colds or flu. Also call your provider if you have any of these symptoms: ?? You don't feel better after 7 days ?? Belly pain or vomiting ?? Symptoms get worse, especially after a period of improvement ?? Fever of?? 100.4?? F?? ( 38??C) or higher, or fever that doesn't go down with medicine, or as advised by your healthcare provider ?? Dizziness or weakness ?? Slight shortness of breath or wheezing ?? Spotted, red, or very sore throat ?? Signs of dehydration: ? Extreme thirst ? Dark urine ? Not urinating often ? Dry mouth ?? When to call 911 Call 911 right away if any of these occur: ?? Chest pain ?? Coughing up blood ?? Fast or irregular heartbeat ?? Severe trouble breathing ?? Sudden confusion, fainting, or loss of consciousness ?? Kids Note last reviewed this educational content on 08/10/2019 ?? 7392-9250 [employer]. All rights reserved. This information is not intended as a substitute for professional medical care. Always follow your healthcare professional's instructions. IAL CERTIFICATE DICTATOR documented in this encounter Progress Notes * Megan Sewell RN - 01/04/2021 9:10 AM CST Kristina Denny complains of Sinus drainage, sore throat, and non productive cough noted over the past 5 days. She is taking otc cough and cold medication with slight improvement Sore Throat This is a new problem. The current episode started in the past 7 days. The problem has been gradually worsening. There has been no fever. The pain is at a severity of 2/10. Associated symptoms include coughing and trouble swallowing. Today's Review of Systems HENT: Positive for sore throat and trouble swallowing. Respiratory: Positive for cough. IAL CERTIFICATE DICTATOR * Evie Mccord APN, MICAELA - 01/04/2021 9:10 AM CST Subjective: Kristina Denny is a 25 y.o. female in the prompt care today for sore throat, congestion, drainage.No fevers. No ill contacts. Symptoms started 5 days ago Severity of symptoms is mild. Associated symptoms as recorded in the ROS. Patient is currently taking over the counter nyquil for the symptoms. This has provided minimal to no relief in the symptoms. Smoker/vapes: no Past, family, and social history was reviewed. Review of Systems Constitutional: Negative for fever. HENT: Positive for congestion, rhinorrhea and sore throat. Negative for sinus pain. Objective: Physical Exam Vitals and nursing note reviewed. Constitutional: General: She is not in acute distress. Appearance: She is not ill-appearing. HENT: Right Ear: Tympanic membrane and ear canal normal. Left Ear: Tympanic membrane and ear canal normal. Nose: Congestion present. Right Sinus: No maxillary sinus tenderness. Left Sinus: No maxillary sinus tenderness. Mouth/Throat: Pharynx: Oropharynx is clear. Cardiovascular: Rate and Rhythm: Normal rate. Pulmonary: Effort: Pulmonary effort is normal. Breath sounds: Normal breath sounds. Neurological: General: No focal deficit present. Mental Status: She is alert and oriented to person, place, and time. Vitals: 01/04/21 0924 BP: 114/60 BP Location: Right Arm BP Position: Sitting BP Cuff Size: Regular Pulse: (!) 113 Resp: 20 Temp: 97.2 ??F (36.2 ??C) TempSrc: Temporal SpO2: 98% Weight: 138 lb (62.6 kg) covid and strep negative today. Symptoms viral in nature. Continue to monitor and follow up with clinic or PCP if symptoms do not resolve, worsen, or new symptoms develop. Assessment and Plan See Diagnoses, Orders, Follow-up, and Instructions Diagnoses and all orders for this visit: Sore throat - POCT SARS ANTIGEN LUCY - POCT GROUP A STREP SCREEN RAPID Acute nasopharyngitis - fluticasone (FLONASE) 50 MCG/ACT Suspension; 1-2 Sprays by Nasal route daily. Use in each nostrilas directed. This is a viral illness and can not be treated with antibiotics as antibiotic do not work on viruses. Viruses can take 7-10 days to resolve, and even up to 14 days for some viruses. Best treatment for viruses is rest. Comfort care: Tylenol or ibuprofen for fever or body aches. Decongestants for congestion: such as flonase nasal spray, nasacort nasal spray, or an allergy medication such as zytrec. Mucinex for congestion Delysm or robitussin for the cough. You can even try honey with hot tea or on its own. Davey vapo rub on chest or feet at night Cool mist vaporizer at night in bedroom Increase fluid intake See family doctor if symptoms worsen or fail to resolve. AVS from today was printed, discussed with patient/family and given to patient/family IAL CERTIFICATE DICTATOR documented in this encounter Plan of Treatment Not on file documented as of this encounter Procedures Procedure Name Priority Date/Time Associated Diagnosis Comments POCT GROUP A STREP SCREEN RAPID Routine 01/04/2021 9:47 AM SPECIAL CERTIFICATE DICTATOR Sore throat POCT SARS ANTIGEN LUCY Routine 01/04/2021 9:38 AM SPECIAL CERTIFICATE DICTATOR Sore throat documented in this encounter Results * POCT GROUP A STREP SCREEN RAPID (01/04/2021 9:47 AM SPECIAL CERTIFICATE DICTATOR) POC STREP SCRN Presumptive negative POC STREP SCREEN CONTROL Retail Leasing Agent Pass 01/04/2021 9:47 AM SPECIAL CERTIFICATE DICTATOR us Evie A Schrumpf ELECTRON TUBE ASSEMBLER, DIRECTOR OF PSYCHIATRY POINT OF CARE TIARRA TING (MANUAL) Final Result * POCT SARS ANTIGEN LUCY (01/04/2021 9:38 AM SPECIAL CERTIFICATE DICTATOR) POC SARS ANTIGEN LUCY Negative Negative POC SARS ANTIGEN LUCY CONTROL Retail Leasing Agent Pass Swab 01/04/2021 9:38 AM SPECIAL CERTIFICATE DICTATOR us Evie A Schrumpf ELECTRON TUBE ASSEMBLER, DIRECTOR OF PSYCHIATRY POINT OF CARE TIARRA TING (MANUAL) Final Result documented in this encounter Visit Diagnoses Diagnosis Sore throat- Primary Acute pharyngitis Acute nasopharyngitis Acute nasopharyngitis (common cold) documented in this encounter Additional Health Concerns Assessment Noted Time PHQ-9 Depression Total Score: 0 04/11/20 20 8:49 AM CDT documented as of this encounter Care Teams Process Treater Relationship Specialty Start Date End Date Jef Figueroa MD PCP - General Family Medicine 04/11/20 documented as of this encounter
--- OUTSIDE RECORDS SUMMARY | 2024-11-29 03:56 | XMS_ITS | Encounter Summary ---
Author Organization [facility] Address [address] [place] [address] Care Team Providers Care Scientific Glass Blower Name Role Phone Jef Figueroa MD Primary Care Provider [phone] Encounter Details Date Type Department Care Team (Late st Contact Info) Description 07/13/2024 External Device Data [facility] ABSTRACTION Provider, Abstract NO ADDRESS ON FILE Social History Tobacco Use Types Packs/Day Years Used Date Smoking Tobacco: Never Assessed Comments Unknown Sex and Gender Information Value Date Recorded Sex Assigned at Not on file Legal Sex Female 2:52 PM PHOTO ENGRAVER Gender Identity Not on file Sexual Orientation Not on file documented as of this encounter Plan of Treatment Not on file documented as of this encounter Visit Diagnoses Not on filedocumented in this encounter Care Teams Scientific Glass Blower Relationship Specialty Start Date End Date Jef Figueroa MD [address] [id number] PCP - General Family Practice 10/11/19 documented as of this encounter
--- OUTSIDE RECORDS SUMMARY | 2024-11-29 03:56 | XMS_ITS | Encounter Summary ---
Author Organization [employer] Care Team Providers Care Recruiting Assistant Name Role Phone Jef Figueroa MD Primary Care Provider [phone] Encounter Details Date Type Department Care Team (Latest Contact Info) Description 11/26/2022 Travel Social History Tobacco Use Types Packs/Day Years [...] Exposure Response Date Recorded In the last 10 days, have yo u been in contact with someone who was confirmed or suspected to have Coronavirus/COVID-19? No / Unsure 11/26/2022 9:17 AM MINT WAFER DEPOSITOR documented as of this encounter Functional Status * Over the past 2 weeks, how often have you been bothered by any of the following problems? Question Answer Date of Assessment Author Little interest or pleasure in doing things Not at all 11/26/2022 10:00 AM MINT WAFER DEPOSITOR Jim Harrison APRN, PRIMER INSERTING MACHINE ADJUSTER Feeling down, depressed, or hopeless Not at all 11/26/2022 10:00 AM MINT WAFER DEPOSITOR Laly Harrison APRN, PRIMER INSERTING MACHINE ADJUSTER Patient Health Questionnaire-2 Score 0 11/26/2022 10:00 AM MINT WAFER DEPOSITOR Laly Harrison , HUMAN SERVICE TECHNICIAN, PRIMER INSERTING MACHINE ADJUSTER documented as of this encounter Plan of Treatment Not on file documented as of this encounter Visit Diagnoses Not on filedocumented in this encounter Additional Health Concerns Assessment Noted Time PHQ-9 Depression Total Score: 0 04/11/20 20 8:49 AM CDT documented as of this encounter Care Teams Recruiting Assistant Relationship Specialty Start Date End Date eJf Figueroa MD PCP - General Family Medicine 04/11/20 documented as of this encounter
--- OUTSIDE RECORDS SUMMARY | 2024-11-29 03:56 | XMS_ITS | Encounter Summary ---
Author Organization [facility] Address [address] [place] [address] Phone Care Team Providers Care Golf Cart Maker Name Role Phone Jef Figueroa MD Primary Care Provider Encounter Details Date Type Department Care Team (Late st Contact Info) Description 11/27/2023 10:30 AM MILL BEAM FITTER Lab [facility] #2 [facility] [address] [place] [address] [facility] Lab/Ancillary Fatigue, unspecified type Discharge Disposition: Discharged to home or Selfcare [...] on file documented as of this encounter Functional Status * Question Answer Date of Assessment Author Little interest or pleasure in doing things Not at all 11/27/2023 9:36 AM Smitha Colon MA Feeling down, depressed, or hopeless Not at all 11/27/2023 9:36 AM Daily Colon MA * Over the past 2 weeks, how often have you been bothered by any of the following problems? Question Answer Date of Assessment Author Patient Health Questionnaire-2 Score 0 11/27/2023 9:36 AM MILL BEAM FITTER Arlene Menezes MA documented as of this encounter Progress Notes * Riley Deluna RMA - 11/27/2023 10:30 AM CST Kristina presents for lab draw per order of Dr. Figueroa dated 11/27/23. Specimen collected from left antecubital without incident. [facility] BEAM FITTER documented in this encounter Plan of Treatment Not on file documented as of this encounter Procedures Procedure Name Priority Date/Time Associated Diagnosis Comments LUTEINIZING HORMONE Routine 11/27/2023 1 0:24 AM MILL BEAM FITTER Fatigue, unspecified type FOLLICLE STIMULATING HORMONE (FSH) Routine 11/27/2023 10:24 AM MILL BEAM FITTER Fatigue, unspecified type CBC WITH AUTO DIFFERENTIAL Routine 11/27/2023 10:24 AM MILL BEAM FITTER Fatigue, unspecified type VITAMIN B12 Routine 11/27/2023 10:24 AM MILL BEAM FITTER Fatigue, unspecified type THYROXINE (T4) FREE Routine 11/27/2023 1 0:24 AM MILL BEAM FITTER Fatigue, unspecified type THYROID STIMULATING HORMONE (TSH) Routine 11/27/2023 10:24 AM MILL BEAM FITTER Fatigue, unspecified type LIPID PANEL Routine 11/27/2023 10:24 AM MILL BEAM FITTER Fatigue, unspecified type LUTEINIZING HORMONE (LH) Routine 11/27/2023 10:24 AM MILL BEAM FITTER Fatigue, unspecified type FOLLICLE STIMULATING HORMONE (FSH) Routine 11/27/2023 10:24 AM MILL BEAM FITTER Fatigue, unspecified type COMPLETE BLOOD COUNT (CBC) WITH DIFF Routine 11/27/2023 10:24 AM MILL BEAM FITTER Fatigue, unspecified type documented in this encounter Results * LUTEINIZING HORMONE (11/27/2023 10:24 AM MILL BEAM FITTER) LH 3.5 mIU/mL [facility] ARCH [id number] A 11/27/2023 11:42 PM MILL BEAM FITTER [facility] Blood Venipuncture / Unknown 11/27/2023 10:24 AM MILL BEAM FITTER 11/27/2023 10:24 AM MILL BEAM FITTER Narrative [facility] - 11/27/2023 11:42 PM MILL BEAM FITTER Normally Menstruating Females: Follicular Phase: ? 1.8 - 11.8 Midcycle Peak: ?7.6 - 89.1 Luteal Phase: ? 0.6 - 14.0 Post Menopausal Females without HRT: 5.2 - 62.0 us Jef Figueroa MD CHEMISTRY ORDERABLES Final Resul t [facility] [address] [place] [address], * FOLLICLE STIMULATING HORMONE (FSH) (11/27/2023 10:24 AM MILL BEAM FITTER) FSH 3.4 mIU/mL [facility] ARCH [id number] A 11/27/2023 10:54 PM MILL BEAM FITTER [facility] Blood Venipuncture / Unknown 11/27/2023 10:24 AM MILL BEAM FITTER 11/27/2023 10:24 AM MILL BEAM FITTER Narrative [facility] - 11/27/2023 10:54 PM MILL BEAM FITTER Normally Menstruating Females Follicular Phase ? 3.0 - 8.1 Mid-cycle Peak ? 2.6 - 16.7 Luteal Phase ? 1.4 - 5.5 Postmenopausal Females 26.7 - 133.4 us Jef Figueroa MD CHEMISTRY ORDERABLES Final Resul t [facility] [address] [place] [address], * CBC WITH AUTO DIFFERENTIAL (11/27/2023 10:24 AM MILL BEAM FITTER) WBC 5.21 4.00 - 12.00 10(3)/mcL 11/27/2023 12:14 PM [facility] RBC 4.87 3.80 - 5.30 10(6)/mcL 11/27/2023 12:14 PM [facility] HEMOGLOBIN (HGB) 14.4 12.0 - 15.8 g/dL 11/27/2023 12:14 PM [facility] HEMATOCRIT (HCT) 44.7 36.0 - 47.0 % 11/27/2023 12:14 PM [facility] MCV 91.8 82.0 - 96.0 fL 11/27/2023 12:14 PM [facility] MCH 29.6 26.0 - 34.0 pg 11/27/2023 12:14 PM [facility] MCHC 32.2 31.0 - 36.0 g/dL 11/27/2023 12:14 PM [facility] PLATELET COUNT 201 140 - 440 10(3)/mcL 11/27/2023 12:14 PM [facility] RDW 12.5 11.8 - 15.5 % 11/27/2023 12:14 PM [facility] MPV 12.0 9.7 - 12.4 fL 11/27/2023 12:14 PM [facility] NEUTROPHILS 62.1 47.0 - 73.0 % 11/27/2023 12:14 PM [facility] LYMPHOCYTES 28.6 18.0 - 42.0 % 11/27/2023 12:14 PM MILL BEAM FITTER [facility] MONOCYTES 8.1 4.0 - 12.0 % 11/27/2023 12:14 PM [facility] EOSINOPHILS 0.6 0.0 - 5.0 % 11/27/2023 12:14 PM [facility] BASOPHILS 0.6 0.0 - 1.0 % 11/27/2023 12:14 PM MILL BEAM FITTER [facility] ABSOLUTE NEUTROPHILS 3.24 1.60 - 7.70 10(3)/[facility] 11/27/2023 12:14 PM [facility] ABSOLUTE LYMPHOCYTES 1.49 1.30 - 3.20 10(3)/[facility] 11/27/2023 12:14 PM MILL BEAM FITTER [facility] ABSOLUTE MONOCYTES 0.42 0.20 - 1.00 10(3)/[facility] 11/27/2023 12:14 PM [facility] ABSOLUTE EOSINOPHIL 0.03 0.00 - 0.40 10(3)/[facility] 11/27/2023 12:14 PM [facility] ABSOLUTE BASOPHILS 0.03 0.00 - 0.10 10(3)/[facility] 11/27/2023 12:14 PM [facility] NRBC PER 100 WBC 0 11/27/19 12:14 PM [facility] Blood Venipuncture / Unknown 11/27/2023 10:24 AM MILL BEAM FITTER 11/27/2023 10:24 AM [facility] us Jef Figueroa MD HEMATOLOGY ORDERABLES Final Resu lt [facility] [place] [address] * LIPID PANEL (11/27/2023 10:24 AM MILL BEAM FITTER) CHOLESTEROL 178 <200 mg/dL 11/27/2023 12:37 PM MILL BEAM FITTER [facility] TRIGLYCERIDES 73 <150 mg/dL 11/27/2023 12:37 PM MILL BEAM FITTER [facility] HDL CHOLESTEROL 53 >40 mg/dL 12:37 PM MILL BEAM FITTER [facility] LDL 110 <130 mg/dL 11/27/2023 12:37 PM MILL BEAM FITTER [facility] VLDL 15 10 - 50 mg/dL 11/27/2023 12:37 PM MILL BEAM FITTER [facility] CHOL/HDL RATIO 3.4 0.0 - 4.4 11/27/2023 12:37 PM MILL BEAM FITTER [facility] NON-HDL CHOLESTEROL 125 <130 mg/dL 11/27/2023 12:37 PM MILL BEAM FITTER [facility] IS THE PATIENT REQUIRED TO BE FASTING? No 11/27/2023 12:37 PM MILL BEAM FITTER [facility] Blood Venipuncture / Unknown 11/27/2023 10:24 AM MILL BEAM FITTER 11/27/2023 10:24 AM MILL BEAM FITTER Jef Figueroa MD CHEMISTRY ORDERABLES Final Resul t Performing Organization Address City/[facility] Co de Phone Number [facility] [address] [place] [address] * VITAMIN B12 (11/27/2023 10:24 AM MILL BEAM FITTER) VITAMIN B12 381 213 - 816 pg/mL 11/27/2023 12:59 PM MILL BEAM FITTER [facility] Blood Venipuncture / Unknown 11/27/2023 10:24 AM MILL BEAM FITTER 11/27/2023 10:24 AM MILL BEAM FITTER Jef Figueroa MD CHEMISTRY ORDERABLES Final Resul t Performing Organization Address City/[facility]/ZIP Co de Phone Number [facility] [address] [place] [address] * THYROXINE (T4) FREE (11/27/2023 10:24 AM MILL BEAM FITTER) T4 FREE 0.8 0.7 - 1.9 ng/dL 11/27/2023 1:05 PM MILL BEAM FITTER [facility] Blood Venipuncture / Unknown 11/27/2023 10:24 AM MILL BEAM FITTER 11/27/2023 10:24 AM MILL BEAM FITTER us Jef Figueroa MD CHEMISTRY ORDERABLES Final Resul t Performing Organization Address City/[facility] Co de Phone Number [facility] [address] [place] [address] * THYROID STIMULATING HORMONE (TSH) (11/27/2023 10:24 AM MILL BEAM FITTER) TSH 1.526 0.300 - 5.000 mIU/L 11/27/2023 1:05 PM MILL BEAM FITTER [facility] Blood Venipuncture / Unknown 11/27/2023 10:24 AM MILL BEAM FITTER 11/27/2023 10:24 AM MILL BEAM FITTER Jef Figueroa MD CHEMISTRY ORDERABLES Final Resul t Performing Organization Address City/[facility] Co de Phone Number [facility] [address] [place] [address] documented in this encounter Visit Diagnoses Diagnosis Fatigue, unspecified type documented in this encounter Additional Health Concerns Assessment Noted Time PHQ-9 Depression Total Score: 0 04/11/20 20 8:49 AM CDT documented as of this encounter Care Teams Golf Cart Maker Relationship Specialty Start Date End Date Jef Figueroa MD PCP - General Family Medicine 04/11/20 documented as of this encounter
--- OUTSIDE RECORDS SUMMARY | 2024-11-29 03:56 | XMS_ITS | Encounter Summary ---
Author Organization [facility] Address [address] [place] [address] Care Team Providers Care Collar Runner Name Role Phone Jef Figueroa MD Primary Care Provider [phone] Reason for Referral * Radiology Services (Routine) - Closed Specialty Diagnoses / Procedures Referred By Contac t Referred To Contact Diagnoses Encounter for anatomic survey Procedures US OB 14+ WKS SINGLE Epifanio Ingram MD [address] [place] [address] Phone: tel: fax: Referral ID Status Reason Start Date Expiration Date V isits Requested Visits Authorized [id number] Closed [facility] CTS 09/27/2019 10/27/2020 1 1 T COMBINE DRIVER Reason for Visit * Radiology Services (Routine) - Closed Specialty Diagnoses / Procedures Referred By Regina liu Referred To Contact Diagnoses Encounter for anatomic survey Procedures US OB 14+ WKS SINGLE Epifanio Ingram MD [address] [place] [address] Phone: tel: fax: Referral ID Status Reason Start Date Expiration Date V isits Requested Visits Authorized [id number] Closed [facility] CTS 09/27/2019 10/27/2020 1 1 Encounter Details Date Type Department Care Team (Late st Contact Info) Description 10/11/2019 9:00 AM WHEAT COMBINE DRIVER - 10/11/2019 11:59 PM WHEAT COMBINE DRIVER Hospital Encounter [facility] [address] [place] [address] Epifanio Wyatt MD [address] [place] [address] Discharge Disposition: Home or Self Care Social History Tobacco Use Types Packs/Day Years Used Date Smoking Tobacco: Never Assessed Comments Unknown Sex and Gender Information Value Date Recorded Sex Assigned at Not on file Legal Sex Female 2:52 PM WHEAT COMBINE DRIVER Gender Identity Not on file Sexual Orientation Not on file documented as of this encounter Plan of Treatment Not on file documented as of this encounter Procedures Procedure Name Priority Date/Time Associated Diagnosis Comments US OB 14+ WKS SINGLE GEST Routine 10/11/2019 10:28 AM WHEAT COMBINE DRIVER Encounter for anatomic survey documented in this encounter Results * US OB 14+ WKS SINGLE GEST (10/11/2019 10:28 AM WHEAT COMBINE DRIVER) Anatomical Region Laterality Modality Pelvis Ultrasound 10/11/2019 9:24 AM WHEAT COMBINE DRIVER Impressions 10/11/2019 10:33 AM WHEAT COMBINE DRIVER IMPRESSION ----- biometry is consistent with the established gestational age No structural malformations were identified Amniotic fluid volume is normal Anterior placenta with normal placental cord insertion. Placenta does not appear to be low-lying Normal cervical length based upon transabdominal ultrasound assessment Patient reports that she previously had a sub-chorionic hemorrhage. We did not see any evidence of a subchorionic hemorrhage today Follow-up as clinically indicated Narrative 10/11/2019 10:33 AM WHEAT COMBINE DRIVER ST[facility] Basic ----- Pat. Name: KRISTINA DENNY Study Date: 10/11/2019 9:24am Pat. NO: [id number] Referring ??MD: EPIFANIO WYATT MD Site: [place] [employer] Worker: Mary Villeda : 1995 Age: 24 ----- INDICATION ----- Encounter for anatomic survey ?Declines genetic testing Other Spec. Disease-Condition Complicating ? FOB with hx asymmetry to body CODING ----- Diagnosis ? Z36: Encounter for screening of mother ?O99.89: Other Spec. Disease/Condition Complicating ?Z3A.19: Weeks Gestation of Procedures ?25905: OB greater than 14 wks (1st Basic) HISTORY ----- OB History ? 2. Para 1 ?[place] children born living (T) 1 ?T1L1 MATERNAL ASSESSMENT ----- Physical Exam ? Weight 63 kg. BMI 25.24 kg/m?. METHOD ----- Transabdominal ultrasound examination ----- [place] . Number of fetuses: 1. DATING ----- Cycle: regular cycle Method of dating: based on the external assessment GA by stated dating 19 w + 3 d ARGELIA by stated dating : 03/03/2020 Ultrasound examination on: 10/11/2019 GA by U/S based upon: AC, BPD, EFW, Femur, HC GA by U/S 18 w + 6 d ARGELIA by U/S: 03/07/2020 Assigned: Dating performed on 10/11/2019, based on the external assessment Assigned GA 19 w + 3 d Assigned ARGELIA: 03/03/2020 BIOMETRY ----- Main Biometry: BPD ? 42.7 ? mm ? 18w 6d ?29% ? Hadlock HC ?167.9 ?mm ? 19w 3d ?43% ? Hadlock Cerebellum tr ? 19.8 ? mm ? 19w 5d ?57% ? Saul AC ?132.3 ?mm ? 18w 5d ?23% ? Hadlock Femur ? 28.6 ? mm ? 18w 5d ?21% ? Hadlock Humerus ? 27.8 ? mm ? 18w 6d ?33% ? Abhishek HC / AC ? 1.27 ?92% ? Nicolaides Weight Calculation: EFW ? 259 ?g ?18w 5d ?16% ? Hadlock EFW (lb,oz) ? 0 lb 9 ? oz EFW by ? Hadlock ([id number]) Head / Face / Neck Biometry: CM ?4.7 ?mm ? 45% ? Nicolaides Outer IOD ? 28.1 ? mm ? 18w 2d ?11% ? Abhishek Nuchal fold ? 3.6 ?mm ? Extremities / Bony Struc Biometry: FL / BPD ?0.67 ?34% ? Hadlock FL / AC ? 0.22 ?66% ? Hadlock Tibia ? 24.5 ? mm ? 18w 5d ?29% ? Abhishek Other Structures Biometry: AF MVP ?4.6 ?cm ? FHR ? 156 ?bpm ? GENERAL EVALUATION ----- Cardiac activity present. FHR 156 bpm. movements visualized. Presentation transverse. Placenta Placental site: anterior, no previa . Umbilical cord Cord vessels: 3 vessel cord. Cord insertion: placental insertion: normal. Amniotic fluid Amount of AF: normal amount. MVP 4.6 cm. ANATOMY ----- The following structures appear normal: Head / Neck ? Cranium. Lateral ventricles. Choroid plexus. Midline falx. Cavum septi pellucidi. Cerebellum. Cisterna ?magna. ?Nuchal fold. Face ?Lips. Profile. Nose. Palate. Orbits. Heart / Thorax ?4-chamber view. RVOT view. LVOT view. Situs. Aortic arch view. Ductal arch view. Superior vena cava. ?Inferior vena cava. High short axis view. 3- vessel view. 8-onorqd-cgyvsad view. Cardiac rhythm. ?Diaphragm. Abdomen ? Abdominal wall. Stomach. Kidneys. Bladder. Spine ? Cervical spine. Thoracic spine. Lumbar spine. Sacral spine. Extremities / ? Right hand. Left hand. Right foot. Left foot. Skeleton Gender: female. MATERNAL STRUCTURES ----- Cervix ?Visualized ?Approach - Transabdominal: Cervical length 42.9 mm Right Ovary ? Normal ?Size 20 mm x 21 mm x 21 mm. Mean 2.0 cm. Vol 4.5 cm? Left Ovary ?Normal ?Size 34 mm x 31 mm x 20 mm. Mean 2.9 cm. Vol 11.4 cm? COMMENT ----- Patient's name and date of were confirmed by the rippler prior to the exam Procedure Note Obed Underwood MD - 10/11/2019 [facility] Basic ----- Pat. Name:Antonio DENNYeric Date:10/11/2019 9:24am Pat. NO: [id number] MD:EPIFANIO WYATT [facility] Villeda :1995Age:24 ----- INDICATION ----- Encounter for anatomic survey Declines genetictesting Other Spec. Disease-Condition Complicating FOB with hx asymmetryto body CODING ----- Diagnosis Z36: Encounter for screening of mother O99.89: Other Spec. Disease/Condition ComplicatingPregnancy Z3A.19: Weeks Gestation of Procedures 68117: OB greater than 14 wks (1st Basic) HISTORY ----- OB History 2. Para 1 [place] children born living (T) 1 T1L1 MATERNAL ASSESSMENT ----- Physical Exam Weight 63 kg. BMI 25.24 kg/m?. METHOD ----- Transabdominal ultrasound examination ----- [place] . Number of fetuses: 1. DATING ----- Cycle:regular cycle Method of dating:based on the external assessment GA by stated dating 19 w + 3 d ARGELIA by stated dating :03/03/2020 Ultrasound examination on:10/11/2019 GA by U/S based upon:AC, BPD, EFW, Femur, HC GA by U/S18 w + 6 d ARGELIA by U/S:03/07/2020 Assigned:Dating performed on 10/11/2019, based on the externalassessment Assigned GA19 w + 3 d Assigned ARGELIA:03/03/2020 BIOMETRY ----- Main Biometry: BPD 42.7 mm 18w 6d29% Hadlock HC 167.9 mm 19w 3d43% Hadlock Cerebellum tr 19.8 mm 19w 5d57% Saul AC 132.3 mm 18w 5d23% Hadlock Femur 28.6 mm 18w 5d21% Hadlock Humerus 27.8 mm 18w 6d33% Abhishek HC / AC 1.2792% Nicolaides Weight Calculation: EFW 259 g 18w 5d16% Hadlock EFW (lb,oz) 0 lb 9 oz EFW by Hadlock ([id number]) Head / Face / Neck Biometry: CM 4.7 mm45% Nicolaides Outer IOD 28.1 mm 18w 2d11% Abhishek Nuchal fold 3.6 mm Extremities / Bony Struc Biometry: FL / BPD 0.6734% Hadlock FL / AC 0.2266% Hadlock Tibia 24.5 mm 18w 5d29% Abhishek Other Structures Biometry: AF MVP 4.6 cm FHR 156 bpm GENERAL EVALUATION ----- Cardiac activity present. FHR 156 bpm. movements visualized. Presentation transverse. Placenta Placental site: anterior, no previa . Umbilical cord Cord vessels: 3 vessel cord. Cord insertion: placentalinsertion: normal. Amniotic fluid Amount of AF: normal amount. MVP 4.6 cm. ANATOMY ----- The following structures appear normal: Head / Neck Cranium. Lateral ventricles. Choroid plexus.Midline falx. Cavum septi pellucidi. Cerebellum. Cisterna magna. Nuchal fold. Face Lips. Profile. Nose. Palate. Orbits. Heart / Thorax 4-chamber view. RVOT view. LVOT view. Situs.Aortic arch view. Ductal arch view. Superior vena cava. Inferior vena cava. High short axis view. 3-vesselview. 7-mjrlwi-wvkbaje view. Cardiac rhythm. Diaphragm. Abdomen Abdominal wall. Stomach. Kidneys. Bladder. Spine Cervical spine. Thoracic spine. Lumbar spine.Sacral spine. Extremities / Right hand. Left hand. Right foot. Left foot. Skeleton Gender: female. MATERNAL STRUCTURES ----- Cervix Visualized Approach - Transabdominal: Cervical length 42.9mm Right Ovary Normal Size 20 mm x 21 mm x 21 mm. Mean 2.0 cm. Vol 4.5cm? Left Ovary Normal Size 34 mm x 31 mm x 20 mm. Mean 2.9 cm. Vol 11.4cm? COMMENT ----- Patient's name and date of were confirmed by the rippler priorto the exam IMPRESSION ----- biometry is consistent with the established gestational age No structural malformations were identified Amniotic fluid volume is normal Anterior placenta with normal placental cord insertion. Placenta does notappear to be low-lying Normal cervical length based upon transabdominal ultrasound assessment Patient reports that she previously had a sub-chorionic hemorrhage. We didnot see any evidence of a subchorionic hemorrhage today Follow-up as clinically indicated us Epifanio Wyatt MD ORDERABLES Final Res ult documented in this encounter Visit Diagnoses Diagnosis Encounter for anatomic survey documented in this encounter Care Teams Collar Runner Relationship Specialty Start Date End Date Jef Figueroa MD [address] [address] PCP - General Family Practice 10/11/19 documented as of this encounter
--- OUTSIDE RECORDS SUMMARY | 2024-11-29 03:56 | XMS_ITS | Encounter Summary ---
Author Organization [facility] Address [address] [place] [address] Phone Care Team Providers Care Fiberglass Fabricator Name Role Phone Unavailable Primary Care Provider Unavailabl e Reason for Visit * Reason Onset Date Comments Thrush 03/13/2020 Encounter Details Date Type Department Care Team (Late st Contact Info) Description 03/13/2020 Telephone [facility] [address] [place] [address] Provider, None [place] Thrush Social History Tobacco Use Types Packs/Day Years Used Date Smoking Tobacco: Never Assessed Comments Unknown Sex and Gender Information Value Date Recorded Sex Assigned at Not on file Legal Sex Female 9:33 AM CDT Gender Identity Not on file Sexual Orientation Not on file documented as of this encounter Miscellaneous Notes * Telephone Encounter - Breanna Ruvalcaba RN - 03/13/2020 4:10 PM CDT Patient notified and verbalized understanding. * Telephone Encounter - Jef Figueroa MD - 03/13/2020 3:57 PM CDT I sent in some oral diflucan. If she wants a cream I can order this too. It might help make a little more comfortable. Let me know. * Telephone Encounter - Sharona Bernabe RN - 03/13/2020 3:31 PM CDT Summary: Her baby has thrush and she got mediine for them but she now has it as well. can the doctor call in Her baby has thrush and she got mediine for them but she now has it as well. can the doctor call insomething for her Call History Type Contact Phone User 03/13/2020 02:45 PM Phone (Incoming) Denisha Kristina M [phone] (M) Bailey Cartagena Her baby has thrush and she got mediine for them but she now has it as well. can the doctor call insomething for her Patient is calling and states she was to establish with Dr. Figueroa after having baby. Scheduled patient with Dr. Figueroa on 04/11 at 8:30 AM for new patient appointment. Patient states she is and has thrush on the nipples. She's asking if provider would be willing to order her something. Pharmacy verified. Please advise. documented in this encounter Plan of Treatment Not on file documented as of this encounter Visit Diagnoses Not on filedocumented in this encounter
--- OUTSIDE RECORDS SUMMARY | 2024-11-29 03:56 | XMS_ITS | Encounter Summary ---
Author Organization [facility] Address [address] [place] [address] Care Team Providers Care Meter Calibrator Name Role Phone Jef Figueroa MD Primary Care Provider [phone] Reason for Referral * Radiology Services (Routine) - Closed Specialty Diagnoses / Procedures Referred By Regina liu Referred To Contact Diagnoses Encounter for screening for malformation Family history of other congenital malformations, deformations and chromosomal abnormalities Procedures US OB DETAIL SINGLE GEST Epifanio Bae MD [address] [place] [phone] Phone: tel: fax: [facility] [address] [place] [phone] Phone: tel: fax: Referral ID Status Reason Start Date Expiration Date Visits Re quested Visits Authorized [id number] Closed 06/07/2024 07/08/2025 1 1 Reason for Visit * Radiology Services (Routine) - Closed Specialty Diagnoses / Procedures Referred By Regina liu Referred To Contact Diagnoses Encounter for screening for malformation Family history of other congenital malformations, deformations and chromosomal abnormalities Procedures US OB DETAIL SINGLE GEST Epifanio Bae MD [address] [place] [phone] Phone: tel: fax: [facility] [address] [place] [phone] Phone: tel: fax: Referral ID Status Reason Start Date Expiration Date Visits Re quested Visits Authorized [id number] Closed 06/07/2024 07/08/2025 1 1 Encounter Details Date Type Department Care Team (Late st Contact Info) Description 07/08/2024 8:00 AM CDT - 07/08/2024 11:59 PM CDT Hospital Encounter [facility] [address] [place] [address] Epifanio Wyatt MD [address] [place] [address] Discharge Disposition: Home or Self Care Social History Tobacco Use Types Packs/Day Years Used Date Smoking Tobacco: Never Assessed Comments Unknown Sex and Gender Information Value Date Recorded Sex Assigned at Not on file Legal Sex Female 2:52 PM FUSION OPERATOR Gender Identity Not on file Sexual Orientation Not on file documented as of this encounter Plan of Treatment Not on file documented as of this encounter Procedures Procedure Name Priority Date/Time Associated Diagnosis Comments US OB DETAIL SINGLE GEST Routine 07/08/2024 9:05 AM CDT Encounter for screening for malformation Family history of other congenital malformations, deformations and chromosomal abnormalities documented in this encounter Results * US OB DETAIL SINGLE GEST (07/08/2024 9:05 AM CDT) Anatomical Region Laterality Modality Pelvis Ultrasound 07/08/2024 8:23 AM CDT Narrative 07/08/2024 9:07 AM CDT STL COMP ----- Pat. Name: KRISTINA DENNY Study Date: 07/08/2024 8:23am Pat. NO: [id number] Referring ??MD: EPIFANIO WYATT MD Site: [place] [employer] Project Manager: Ananya Escudero RDMS : 1995 Age: 28 ----- INDICATION ----- Anatomy Survey ? no genetics Family History of Congenital Anomalies CODING ----- Diagnoses ? Z3A.20: Weeks of gestation ?Z82.79: Family history of other congenital malformations, deformations and chromosomal abnormalities ?Z36.3: Encounter for screening for malformations Procedures ?62769: Ultrasound, uterus, real time with image documentation, and maternal evaluation ?plus detailed anatomic examination, transabdominal approach HISTORY ----- OB History ? 2. Para 1 ?[place] children born living (T) 1 ?T1L1 MATERNAL ASSESSMENT ----- Physical Exam ? Weight 67 kg. BMI 27.07 kg/m?? METHOD ----- Transabdominal ultrasound examination ----- [place] . Number of fetuses: 1 DATING ----- Method of dating: based on stated ARGELIA GA by prior assessment 20 w + 4 d ARGELIA by prior assessment: 11/21/2024 Ultrasound examination on: 07/08/2024 GA by U/S based upon: AC, BPD, EFW, Femur, HC GA by U/S 21 w + 2 d ARGELIA by U/S: 11/16/2024 Assigned: based on stated ARGELIA, selected on 07/08/2024 Assigned GA 20 w + 4 d Assigned ARGELIA: 11/21/2024 BIOMETRY ----- BPD ?52.2 ? mm ? 21w 6d ? 91% ?Hadlock OFD ?65.6 ? mm ? 22w 1d ? 93% ?Abhishek HC ? 188.7 ?mm ? 21w 1d ? 68% ?Hadlock Cerebellum tr ?21.8 ? mm ? 21w 2d ? 66% ?Saul Nuchal fold ?4.7 ?mm AC ? 158.0 ?mm ? 21w 0d ? 56% ?Hadlock Femur ?35.5 ? mm ? 21w 2d ? 65% ?Hadlock Humerus ?33.0 ? mm ? 21w 1d ? 70% ?Abhishek HC / AC ?1.19 ?62% ? Nicolaides Weight Calculation: EFW ?400 ? g ?21w 0d ?73% ?Hadlock EFW (lb,oz) ?0 lb 14 ? oz EFW by ?Hadlock ([id number]) Head / Face / Neck Biometry: Lounge Car Attendant ? 5.5 ? mm CM ? 4.1 ? mm ? 18% ?Nicolaides Inner IOD ?15.8 ?mm Extremities / Bony Struc Biometry: FL / BPD ? 0.68 ?20% ?Hadlock FL / HC ?0.19 ?52% ?Hadlock FL / AC ?0.22 ?63% ?Hadlock GENERAL EVALUATION ----- Cardiac activity present. FHR 150 bpm. movements: present. Presentation: cephalic Placenta: Placental site: anterior Umbilical cord: Cord vessels: 3 vessel cord. Insertion site: placental insertion: normal Amniotic fluid: Amount of AF: normal amount. MVP 3.2 cm ANATOMY ----- The following structures appear normal: Head / Neck ? Cranium. Lateral ventricles. Choroid plexus. Midline falx. Cavum septi pellucidi. Cerebellum. Cisterna ?magna. Thalami. ?Nuchal fold. Face ?Lips. Profile. Nose. Palate. Orbits. Heart / Thorax ?4-chamber view. RVOT view. LVOT view. 3-vessel view. 9-kfhbep-vwwhewh view. Situs. Aortic arch view. ?Ductal arch view. Superior vena cava. Inferior vena cava. High short axis view. Cardiac rhythm. ?Diaphragm. Abdomen ? Abdominal wall. Stomach. Kidneys. Bladder. Spine ? Cervical spine. Thoracic spine. Lumbar spine. Sacral spine. Extremities / ? Arms. Right hand. Left hand. Legs. Right foot. Left foot. Skeleton MATERNAL STRUCTURES ----- Cervix ?Visualized ?Approach - Transabdominal: Cervical length 36.2 mm Right Ovary ? Normal ?Size 37 mm x 19 mm x 17 mm. Vol 6.3 cm?? Left Ovary ?Normal ?Size 21 mm x 15 mm x 14 mm. Vol 2.3 cm?? GROWTH OVERVIEW ----- Exam date ? GA ?BPD (mm) ? HC (mm) ?AC (mm) ? FL (mm) ?HL (mm) ?EFW (g) 07/08/2024 ?20w 4d ?52.2 ?91% ?188.7 ? 68% ?158.0 ?56% ?35.5 ?65% ?33.0 ?70% ?400 ? 73% COMMENT ----- Patient's name and date of were verified by the assembler motor vehicle before the exam IMPRESSION ----- IUP at 20w 4d AGA growth with EFW 400 g (73%) No major structural malformations are identified within the limits of ultrasound. No soft markers of aneuploidy are visualized. Normal amniotic fluid volume, MVP 3.2 cm Normal cervical length, 36.2 mm Placenta is anterior with no previa Recommendations: - Follow up as clinically indicated Procedure Note Alexsandra Llamas MD - 07/08/2024 STL COMP ----- Pat. Name:Deisy DENNY Date:07/08/2024 8:23am Pat. NO: [id number] MD:EPIFANIO WYATT [facility]Ananya Escudero RDMS :1995Age:28 ----- INDICATION ----- Anatomy Survey no genetics Family History of Congenital Anomalies CODING ----- Diagnoses Z3A.20: Weeks of gestation Z82.79: Family history of other congenitalmalformations, deformations and chromosomal abnormalities Z36.3: Encounter [facility] Procedures [id number]: Ultrasound, uterus, real time withimage documentation, and maternal evaluation plus detailed anatomic examination,transabdominal approach HISTORY ----- OB History 2. Para 1 [place] children born living (T) 1 T1L1 MATERNAL ASSESSMENT ----- Physical Exam Weight 67 kg. BMI 27.07 kg/m?? METHOD ----- Transabdominal ultrasound examination ----- [place] . Number of fetuses: 1 DATING ----- Method of dating:based on stated ARGELIA GA by prior [id number] w + 4 d ARGELIA by prior assessment:11/21/2024 Ultrasound examination on:07/08/2024 GA by U/S based upon:AC, BPD, EFW, Femur, HC GA by U/S21 w + 2 d ARGELIA by U/S:11/16/2024 Assigned:based on stated ARGELIA, selected on 07/08/2024 Assigned GA20 w + 4 d Assigned ARGELIA:11/21/2024 BIOMETRY ----- BPD 52.2 mm 21w 6d91% Hadlock OFD 65.6 mm 22w 1d93% Abhishek HC 188.7 mm 21w 1d68% Hadlock Cerebellum tr 21.8 mm 21w 2d66% Saul Nuchal fold 4.7 mm AC 158.0 mm 21w 0d56% Hadlock Femur 35.5 mm 21w 2d65% Hadlock Humerus 33.0 mm 21w 1d70% Abhishek HC / AC 1.19 62%Nicolaides Weight Calculation: EFW 400 g 21w 0d 73%Hadlock EFW (lb,oz) 0 lb 14 oz EFW by Hadlock ([id number]) Head / Face / Neck Biometry: Lounge Car Attendant 5.5 mm CM 4.1 mm 18%Nicolaides Inner IOD 15.8 mm Extremities / Bony Struc Biometry: FL / BPD 0.68 20%Hadlock FL / HC 0.19 52%Hadlock FL / AC 0.22 63%Hadlock GENERAL EVALUATION ----- Cardiac activity present. FHR 150 bpm. movements: present.Presentation: cephalic Placenta: Placental site: anterior Umbilical cord: Cord vessels: 3 vessel cord. Insertion site: placentalinsertion: normal Amniotic fluid: Amount of AF: normal amount. MVP 3.2 cm ANATOMY ----- The following structures appear normal: Head / Neck Cranium. Lateral ventricles. Choroid plexus.Midline falx. Cavum septi pellucidi. Cerebellum. Cisterna magna. Thalami. Nuchal fold. Face Lips. Profile. Nose. Palate. Orbits. Heart / Thorax 4-chamber view. RVOT view. LVOT view. 3-vesselview. 0-ubocxl-fdtbjxn view. Situs. Aortic arch view. Ductal arch view. Superior vena cava. Inferiorvena cava. High short axis view. Cardiac rhythm. Diaphragm. Abdomen Abdominal wall. Stomach. Kidneys. Bladder. Spine Cervical spine. Thoracic spine. Lumbar spine.Sacral spine. Extremities / Arms. Right hand. Left hand. Legs. Right foot.Left foot. Skeleton MATERNAL STRUCTURES ----- Cervix Visualized Approach - Transabdominal: Cervical length 36.2mm Right Ovary Normal Size 37 mm x 19 mm x 17 mm. Vol 6.3 cm?? Left Ovary Normal Size 21 mm x 15 mm x 14 mm. Vol 2.3 cm?? GROWTH OVERVIEW ----- Exam date GA BPD (mm) HC (mm) AC (mm) FL(mm) HL (mm) EFW (g) 07/08/2024 20w 4d 52.2 91% 188.7 68% 158.0 56%35.5 65% 33.0 70% 400 73% COMMENT ----- Patient's name and date of were verified by the assembler motor vehicle beforethe exam IMPRESSION ----- IUP at 20w 4d AGA growth with EFW 400 g (73%) No major structural malformations are identified within the limitsof ultrasound. No soft markers of aneuploidy are visualized. Normal amniotic fluid volume, MVP 3.2 cm Normal cervical length, 36.2 mm Placenta is anterior with no previa Recommendations: - Follow up as clinically indicated us Epifanio Wyatt MD ORDERABLES Final Res ult documented in this encounter Visit Diagnoses Diagnosis Encounter for screening for malformation Family history of other congenital malformations, deformations and chromosomal abnormalities documented in this encounter Care Teams Meter Calibrator Relationship Specialty Start Date End Date Jef Figueroa MD #[address] [phone] PCP - General Family Practice 10/11/19 documented as of this encounter
--- OUTSIDE RECORDS SUMMARY | 2024-11-29 03:56 | XMS_ITS | Encounter Summary ---
Author Organization [facility] Address [address] [place] [address] Phone Care Team Providers Care Manager Clinical Name Role Phone Jfe Figueroa MD Primary Care Provider [phone] Reason for Visit * Reason Comments COVID-19 Encounter Details Date Type Department Care Team ([facility] Contact Info) Description 05/31/2020 9:30 AM CDT Telemedicine [facility] Digital Contact Center [address] [place] [address] Adam Osman, BURR GRINDER, ACCOUNT MAINTENANCE REPRESENTATIVE Fever, unspecified fever cause (Primary Dx); Chills; Body aches Discharge Disposition: Discharged to home or Selfcare [...] Score - Questions 1-9 0 12/2019 Comments Unknown Sex and Gender Information Value Date Recorded Sex Assigned at Not on file Legal Sex Female 9:33 AM CDT Gender Identity Not on file Sexual Orientation Not on file COVID-19 Exposure Response Date Recorded In the last month, have you been in contact with someone who was confirmed or suspected to have Coronavirus / COVID-19? No / Unsure 05/31/2020 8:33 AM CDT documented as of this encounter Patient Instructions * Patient Instructions* Adam Osman, KALINA, MICAELA - 05/31/2020 9:30 AM CDT Care at Home: Patients with Suspected or Confirmed Novel Coronavirus (COVID - 19) -Push fluid intake and take Tylenol as needed for fever, body aches. Take Tylenol as directed on bottle. - If you do not live alone: segregate yourself, use a separate bathroom if possible, sleep in a separate area, have no/limited family time, and the person with symptoms is not to prepare food for others. - Patient advised to contact employer now to report positive screen and symptoms. -For [facility] who are COVID confirmed but were not exposed at work. The MP will need a return to work note from a MD or SANTA. These notes can be obtained preferably by PCP. However, notes can be obtained from [facility] or [facility]. If the MP is positive due to a workplace exposure, theMP should work with his or her leader to coordinate return with occupational health. ??? Stay at home except to get urgent medical care or medical care as advised by your healthcare provider ??? Do not go to work, school, or public places ??? Avoid public transportation, ride sharing services (like Uber or Lyft) or taxis ??? Separate yourself from other people and animals in your home as much as possible ??? Stay in a room with separate bathroom, if possible, away from others in your home ??? Restrict contact with pets and other animals just like you would people ??? Cover your cough and sneeze ??? Throw tissues in the garbage can immediately ??? Wash hands with soap and water for 20 seconds or hand solutions architect with 60-90% alcohol ??? Clean your hands often ??? Avoid sharing personal household items ??? Do not share dishes, drinking glasses, utensils, towels, or bedding with other people or pets in your home. ??? Clean all high touch surfaces every day: Use a household cleaning spray or wipe according to label instructions For more information: https://www.cdc.gov/coronavirus/2019-ncov/hcp/mtojwkbm-awvojdm-cxcqgd.html If symptoms worsen at anytime, seek additional care by either contacting this hotline or seeking care at Urgent Care or Emergency Department. COVID-19 NEGATIVE - No testing warranted at this time. IDPH recommends testing for: hospitalized patients/severely ill and patients who are cohorted in a living facility (ie. [facility] patients/employees, healthcare workers, correctional facility residents/employees, law enforcement, emergency medical personnel, or receiving dialysis). - Remain at home unless symptoms get worse. If symptoms worsen, call back to their PCP office (or this triage line if no PCP) or go to ED immediately for severe symptoms. POSITIVE - If asymptomatic and had close contact with COVID-19 positive individual(s): quarantine at home for 14 days for symptom monitoring. - f symptomatic or symptoms develop within those 14 days of quarantine, stay home until these threethings have happened: - No fever (a fever is 100F or higher) for 3 days (without the use of medicine) AND - Other symptoms have improved (ie: cough, shortness of breath) AND - at least 10 days have passed since your symptoms first appeared - If you do not live alone: segregate yourself, use a separate bathroom if possible, sleep in a separate area, have no/limited family time, and the person with symptoms is not to prepare food for others. - Patient advised to contact employer now to report positive screen and symptoms. WORK NOTE - Per CDC: Employers should not require a positive COVID-19 test result or a healthcare provider's note for employees who are sick to validate their illness, qualify for sick leave, or to return to work. [facility] is not providing excuse for work notes or return to work notes at this time per CDC recommendations. Caller verbalizes understanding of the above information. documented in this encounter Progress Notes * Adam Osman APN, CNP - 05/31/2020 9:30 AM CDT Images from the original note were not included. [facility] Subjective: Triage note: Patient calling with fever, chills, body aches (requested video visit, I called and she was okay with telephone visit-she did not mention having avideo visit). Chief Complaint Patient presents with ??? COVID-19 HPI Kristina Denny, 24 y.o. female, is calling today for a tele-health visit because she is experiencing fever, chills, and body aches. Symptoms started on 05/30/2020. Temperature this morning was 97 F, oral. has a fever yesterday. Has been taking Tylenol 1,000 mg PRN. Last dose was this morning. 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 No known COVID exposure. Denies sore throat, cough, diarrhea, nausea, vomiting, shortness of breath, chest pain, dizziness, or light headedness. Has been experiencing headaches and body aches. Continues to eat, drink, and void without difficulties. The following portions of the patient's chart were reviewed by a provider in this encounter and updated as appropriate: allergies, medications, and past medical history Review of Systems Constitutional: Positive for chills and fever. HENT: Negative for ear pain, postnasal drip, sinus pressure, sinus pain, sore throat and trouble swallowing. Respiratory: Negative for cough, chest tightness, shortness of breath and wheezing. Cardiovascular: Negative for chest pain. Gastrointestinal: Negative for abdominal pain, diarrhea, nausea and vomiting. Musculoskeletal: Positive for myalgias. Skin: Negative for rash. Allergic/Immunologic: Negative for environmental allergies and immunocompromised state. Neurological: Negative for dizziness, syncope, light-headedness and headaches. Psychiatric/Behavioral: Negative for agitation and confusion. The patient is not nervous/anxious. Allergies Allergen Reactions ??? Bee Venom Swelling Current Outpatient Medications on File Prior to Visit Medication Sig Dispense Refill ??? Vit-Fe Fumarate-FA ( VITAMIN PO) Take 1 Tab by mouth daily. ??? VITAMIN D PO Take 1 Tab by mouth daily. ??? vitamin D, cholecalciferol, (CHOLECALCIFEROL) 5 mcg Tablet Take 5 mcg by mouth daily. No current facility-administered medications on file prior to visit. There is no problem list on file for this patient. Chief complaint and all history documented by ancillary staff were Reviewed and verified, with additions or corrections, as appropriate. Objective: Physical Exam Constitutional: General: She is not in acute distress. Neurological: Mental Status: She is alert and oriented to person, place, and time. Psychiatric: Attention and Perception: Attention normal. Mood and Affect: Mood normal. Speech: Speech normal. Behavior: Behavior is cooperative. Unable to complete full physical exam due to nature of tele-health visit via telephone. Patient is speaking in complete sentences. Able to walk about the house without fatigue/shortness of breath. Nonoted cough during telephone encounter. Assessment and Plan Diagnoses and all orders for this visit: Fever, unspecified fever cause - SARS-COV-2 BY PCR; Future Chills - SARS-COV-2 BY PCR; Future Body aches - SARS-COV-2 BY PCR; Future ?? She is categorized as Priority 3 and will be going to [facility] for testing ??? Patient counseled to remain at home unless symptoms get worse. If symptoms worsen, the patient was counseled to call back to their PCP office (or this triage line if no PCP), go to a local UrgentCare, or go to ED immediately for severe or worsening symptoms. Warm handoff given to Anatoliy at [facility] to notify of Kristina meeting criteria for COVID testing. Clinic will notify her of testing time. Patient was assessed via telephone for a duration of 0-15 minutes. Patient verbally consented for this service to be performed (verified name and ) ??? See patient follow up instructions for follow up directions. Discussed plan of care with patient. Supportive care/Symptomatic treatment discussed in detail as outlined in patient instructions. See patient education for education discussed at this appointment. ??? Signs and symptoms requiring re-evaluation or emergency care discussed. ??? Side effects and risk/benifits of all medications discussed with patient/caregiver. All questions/concerns addressed and answered. ??? Patient verbalized understanding of education provided and notified that education would be available via [facility]. If [facility] isn't set up, instructions provided for set up. Education (as applicable): - If asymptomatic, patient counseled to monitor symptoms for 14 days since exposure. - If symptomatic, counseled to stay home until these three things have happened: - No fever (100.0 for HCW, 100.4 for lay people) for 3 days (without the use of medicine) AND - Other symptoms have improved (ie cough, SOB) AND - at least 10 days have passed since your symptoms first appeared - Patient to push fluid intake and take Tylenol PRN for fever, body aches. - If you do not live alone: segregate yourself, use a separate bathroom if possible, sleep in a separate area, have no/limited family time, and the person with symptoms is not to prepare food for others. - If symptoms worsen, the patient was counseled to call their primary care provider office or this triage line. Pt was told to go to ED immediately for onset of severe symptoms. - Patient advised to contact employer now to report positive screen and symptoms. -For [facility] who are COVID confirmed but were not exposed at work. The MP will need a return to work note from a MD or SANTA. These notes can be obtained preferably by PCP. However, notes can be obtained from [facility] or [facility]. If the MP is positive due to a workplace exposure, theMP should work with his or her leader to coordinate return with occupational health. - Per CDC: Employers should not require a positive COVID-19 test result or a healthcare provider???s note for employees who are sick to validate their illness, qualify for sick leave, or to return towork. [facility] is not providing excuse for work notes or return to work notes at this time per CDC recommendations. Recommended disposition of Home self-care supported by the above documentation. Patient agreed withdisposition. Follow-up Instructions Return if symptoms worsen or fail to improve. Patient Instructions Care at Home: Patients with Suspected or Confirmed Novel Coronavirus (COVID - 19) -Push fluid intake and take Tylenol as needed for fever, body aches. Take Tylenol as directed on bottle. - If you do not live alone: segregate yourself, use a separate bathroom if possible, sleep in a separate area, have no/limited family time, and the person with symptoms is not to prepare food for others. - Patient advised to contact employer now to report positive screen and symptoms. -For [facility] who are COVID confirmed but were not exposed at work. The MP will need a return to work note from a MD or SANTA. These notes can be obtained preferably by PCP. However, notes can be obtained from [facility] or [facility]. If the MP is positive due to a workplace exposure, the MP should work with his or her leader to coordinate return with occupational health. ??? Stay at home except to get urgent medical care or medical care as advised by your healthcare provider ??? Do not go to work, school, or public places ??? Avoid public transportation, ride sharing services (like Uber or Lyft) or taxis ??? Separate yourself from other people and animals in your home as much as possible ??? Stay in a room with separate bathroom, if possible, away from others in your home ??? Restrict contact with pets and other animals just like you would people ??? Cover your cough and sneeze ??? Throw tissues in the garbage can immediately ??? Wash hands with soap and water for 20 seconds or hand solutions architect with 60-90% alcohol ??? Clean your hands often ??? Avoid sharing personal household items ??? Do not share dishes, drinking glasses, utensils, towels, or bedding with other people or pets in your home. ??? Clean all high touch surfaces every day: Use a household cleaning spray or wipe according to label instructions For more information: https://www.cdc.gov/coronavirus/2019-ncov/hcp/siswvjuf-weoqolb-gyfqtl.html If symptoms worsen at anytime, seek additional care by either contacting this hotline or seeking care at Urgent Care or Emergency Department. COVID-19 NEGATIVE - No testing warranted at this time. IDPH recommends testing for: hospitalized patients/severely ill and patients who are cohorted in a living facility (ie. [facility] patients/employees, healthcare workers, correctional facility residents/employees, law enforcement, emergency medical personnel, or receiving dialysis). - Remain at home unless symptoms get worse. If symptoms worsen, call back to their PCP office (or this triage line if no PCP) or go to ED immediately for severe symptoms. POSITIVE - If asymptomatic and had close contact with COVID-19 positive individual(s): quarantine at home for 14 days for symptom monitoring. - f symptomatic or symptoms develop within those 14 days of quarantine, stay home until these threethings have happened: - No fever (a fever is 100F or higher) for 3 days (without the use of medicine) AND - Other symptoms have improved (ie: cough, shortness of breath) AND - at least 10 days have passed since your symptoms first appeared - If you do not live alone: segregate yourself, use a separate bathroom if possible, sleep in a separate area, have no/limited family time, and the person with symptoms is not to prepare food for others. - Patient advised to contact employer now to report positive screen and symptoms. WORK NOTE - Per CDC: Employers should not require a positive COVID-19 test result or a healthcare provider's note for employees who are sick to validate their illness, qualify for sick leave, or to return to work. [facility] is not providing excuse for work notes or return to work notes at this time per CDC recommendations. Caller verbalizes understanding of the above information. Adam Osman APN, MICAELA documented in this encounter Plan of Treatment Not on file documented as of this encounter Results * SARS-COV-2 BY PCR (05/31/2020 10:02 AM CDT) SARSCOV2 NOT DETECTED (Reference Range for this test is Not Detected) 06/01/2020 5:05 PM CDT [facility] Swab NASOPHARYNGEAL STRUCTURE / Unknown Non-Phlebotomy Collection / Unknown 05/31/2020 10:02 AM CDT 05/31/2020 10:02 AM CDT Narrative [facility] - 06/01/2020 5:05 PM CDT Authorized Fact Sheets about this test for providers and patients are available at: https://www.fda.gov/medical-devices/ucboupaaw-ijrlkgrank-zoqjtcc-devices/emergen -us e-authorizations us Adam Osman APRN, CNP MICROBIOLOGY - GENERAL ORDERABLES Final Result [facility] [address] [place] [address], [place] documented in this encounter Visit Diagnoses Diagnosis Fever, unspecified fever cause- Primary Chills Chills (without fever) Body aches Generalized pain documented in this encounter Additional Health Concerns Infection Onset Date Last Indicated Resolved Time COVID - 19 05/31/2020 05/31/2020 06/12/2020 3:31 PM CDT Assessment Noted Time PHQ-9 Depression Total Score: 0 04/11/20 8:49 AM CDT documented as of this encounter Care Teams Manager Clinical Relationship Specialty Start Date End Date Jef Figueroa MD PCP - General Family Medicine 04/11/20 documented as of this encounter
--- OUTSIDE RECORDS SUMMARY | 2024-11-29 03:56 | XMS_ITS | Encounter Summary ---
Author Organization [employer] Care Team Providers Care Cryptographer Name Role Phone Jef Figueroa MD Primary Care Provider [phone] Encounter Details Date Type Department Care Team (Latest Contact Info) Description 11/05/2024 Travel Social History Tobacco Use Types Packs/Day [...] Total Score - Questions 1-9 0 12/2019 Estimated Date of Delivery Comme nts Yes 11/20/2024 Sex and Gender Information Value Date Recorded Sex Assigned at Not on file Legal Sex Female 9:33 AM CDT Gender Identity Not on file Sexual Orientation Not on file documented as of this encounter Plan of Treatment Not on file documented as of this encounter Visit Diagnoses Not on filedocumented in this encounter Additional Health Concerns Infection Onset Date Last Indicated Resolved Time COVID - 19 11/05/2024 11/05/2024 11/05/2024 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
--- OUTSIDE RECORDS SUMMARY | 2024-11-29 03:56 | XMS_ITS | Encounter Summary ---
Author Organization [employer] Address 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
--- OUTSIDE RECORDS SUMMARY | 2024-11-29 03:56 | XMS_ITS | Encounter Summary ---
Author Organization [employer] Care Team Providers Care Dba Developer Name Role Phone Jef Figueroa MD Primary Care Provider [phone] Encounter Details Date Type Department Care Team (Latest Contact Info) Description 01/15/2024 Travel Social History Tobacco Use Types Packs/Day [...] documented as of this encounter Care Teams Dba Developer Relationship Specialty Start Date End Date Jef Figueroa MD PCP - General Family Medicine 04/11/20 documented as of this encounter
--- OUTSIDE RECORDS SUMMARY | 2024-11-29 03:56 | XMS_ITS | Encounter Summary ---
Author Organization [facility] Address [address] [place] [address] Phone Care Team Providers Care Circular Ripsaw Operator Name Role Phone Jef Figueroa MD Primary Care Provider [phone] Reason for Referral * Consult, Test & Initiate Treatment (Less Than 1 Week) - Closed Specialty Diagnoses / Procedures Referred By Contkimberly t Referred To Contact Diagnoses Closed displaced fracture of distal phalanx of left index finger, initial encounter Hilaria Garcia APRN, CNP [address] [place] [address] Phone: tel: fax: Referral ID Status Reason Start Date Expiration Date Visits Re quested Visits Authorized [id number] Closed 01/14/2023 1 1 Scheduling Instructions Kristina is being referred to orthopedics or other specialist in patient's insurance network for Cortical irregularity of the tuft of the 2nd distal phalanx as evidence for nondisplaced fracture. See below for Kristina's current medications, allergies and problem list. CURRENT MEDS: No current outpatient medications on file. No current facility-administered medications for this visit. ALLERGIES: -- Bee Venom -- Swelling PROBLEM LIST: There is no problem list on file for this patient. INSPECTOR Reason for Visit * Reason Comments Finger Injury Left index finger Encounter Details Date Type Department Care Team (Latest Contact Info) Description 01/14/2023 3:10 PM MAT INSPECTOR [facility] [place] [address] [place] [id number] Hilaria Garcia APRN, DRY HOUSE WORKER [address] [place] [address] Closed displaced fracture of distal phalanx of left index finger, initial encounter (Primary Dx); Finger injury, left, initial encounter Discharge Disposition: Discharged to home or Selfcare Social History Tobacco Use Types Packs/Day Years Used Date Smoking Tobacco: Never Smokeless Tobacco: Never Tobacco Cessation:Counseling Given: Not Answered Alcohol Use Standard Drinks/Week Comments Never 0 [...] suspected to have Coronavirus/COVID-19? No / Unsure 01/14/2023 1:56 PM MAT INSPECTOR documented as of this encounter Last Filed Vital Signs Vital Sign Reading Time Taken Comments Blood Pressure 104/70 01/14/2023 3:07 PM MAT INSPECTOR Pulse 84 01/14/2023 3:07 PM MAT INSPECTOR Temperature 36.6 ??C (97.8 ??F) 01/14/2023 3:07 PM CS T Respiratory Rate 14 01/14/2023 3:07 PM MAT INSPECTOR Oxygen Saturation 98% 01/14/2023 3:07 PM MAT INSPECTOR Inhaled Oxygen Concentration - - Weight - - Height - - Body Mass Index - - documented in this encounter Patient Instructions * Patient Instructions* Hilaria Garcia APRN, CNP - 01/14/2023 3:10 PM MAT INSPECTOR Follow up with hearing aid specialist Tylenol or ibuprofen as directed on bottle as needed for pain or fever Care as instructed on AVS If medication was prescribed it was sent to the pharmacy. Take all medication as prescribed. Do not skip a dose and take until completed. Follow up with PCP if the symptoms do not improve Go to the ER if symptoms become severe INSPECTOR * Attachments The following attachments cannot be sent through Care Everywhere. * Finger Fracture Adult (Mongolian) documented in this encounter Progress Notes * Riley Deluna RMA - 01/14/2023 3:10 PM CST Kristina Denny complains of Left index finger injury after she slammed into a closing truck door on Friday night. Finger Injury This is a new problem. Episode onset: 2 days ago. The problem occurs constantly. The problem has been unchanged. The symptoms are aggravated by bending, twisting and exertion. She has tried immobilization for the symptoms. The treatment provided mild relief. INSPECTOR * Hilaria Garcia APRN, CNP - 01/14/2023 3:10 PM CST HPI: Kristina Denny is a 27 y.o. female in the prompt care today for finger injury. Symptoms started 2 nights ago she slammed her left index finger in a truck door Severity of symptoms is moderate and unchanged Associated symptoms include increased pain with bending or twisting of finger Patient is currently taking over the counter immobilization for the symptoms. Smoker: No No pertinent Past, family, or social history was noted There is no problem list on file for this patient. ROS: Review of Systems Musculoskeletal: Positive for arthralgias (left index finger) and joint swelling (left index finger). PE: BP 104/70 (BP Location: Left Arm, BP Position: Sitting, BP Cuff Size: Regular) Pulse 84 Temp 97.8 ??F (36.6 ??C) (Temporal) Resp 14 LMP 12/31/2022 (Exact Date) SpO2 98% Physical Exam Vitals and nursing note reviewed. Constitutional: General: She is not in acute distress. Appearance: Normal appearance. She is normal weight. She is not ill-appearing. HENT: Head: Normocephalic and atraumatic. Cardiovascular: Rate and Rhythm: Normal rate. Pulmonary: Effort: Pulmonary effort is normal. No respiratory distress. Musculoskeletal: Left hand: Swelling (left index finger) and tenderness present. Decreased range of motion. Decreased strength of finger abduction. Normal capillary refill. Normal pulse. Cervical back: Normal range of motion and neck supple. Skin: General: Skin is warm and dry. Neurological: Mental Status: She is alert and oriented to person, place, and time. ASSESSMENT/PLAN: 1. Finger injury, left, initial encounter - XR FINGER(S) MIN 2 VIEWS LT Cortical irregularity of the tuft of the 2nd distal phalanx as evidence for nondisplaced fracture 2. Closed displaced fracture of distal phalanx of left index finger, initial encounter - EXTERNAL ORTHOPEDIC REFERRAL; Future - wear finger splint until seen by hearing aid specialist - Xrays were taken today in clinic and reviewed by both the clinic provider and radiology. Results were discussed with patient. Care consists of RICE: Rest, Ice, Compression, and Elevation. Ibuprofen or tylenol may be taken as needed for any pain or discomfort. Do not take more than the recommended daily amount as discussed. Tylenol extra strength 1-2 tablets every 4-6 hours, do not take more than 6 tablets in 24 hours. Ibuprofen 200 mg tablets, take 2 tablets every 6 hours, do not take more than 6 tablets in 24 hours. This dosage recommendation can be found on the package/bottle of tylenol or ibuprofen. Resting the injury and elevation will help reduce the swelling. Do not place ice against the skin without a barrier such as a towel. Do not leave ice on for more than 15-20 minutes. Follow up PCP if symptoms do not improve or worsen in the next 1-2 weeks. AVS from today was printed, discussed with patient/family and given to patient/family Patient Instructions Follow up with hearing aid specialist Tylenol or ibuprofen as directed on bottle as needed for pain or fever Care as instructed on AVS If medication was prescribed it was sent to the pharmacy. Take all medication as prescribed. Do not skip a dose and take until completed. Follow up with PCP if the symptoms do not improve Go to the ER if symptoms become severe Chief complaint and all history documented by ancillary staff were reviewed and verified, with additions or corrections, as appropriate. INSPECTOR documented in this encounter Plan of Treatment Scheduled Referrals Name Type Priority Associated Diagnoses Order Schedule EXTERNAL ORTHOPEDIC REFERRAL Outpatient Referral Less Than 1 week Closed displaced fracture of distal phalanx of left index finger, initial encounter Expected: 01/19/2024, Expires: 05/21/2024 documented as of this encounter Procedures Procedure Name Priority Date/Time Associated Diagnosis Comments XR FINGER(S) MIN 2 VIEWS LT Stat with Interpretation 01/14/2023 3:31 PM MAT INSPECTOR Finger injury, left, initial encounter documented in this encounter Results * XR FINGER(S) MIN 2 VIEWS LT (01/14/2023 3:31 PM MAT INSPECTOR) Anatomical Region Laterality Modality UPPER EXTREMITY, Fingers N/A Digital Radiography 01/14/2023 4:07 PM MAT INSPECTOR Impressions 01/14/2023 4:10 PM MAT INSPECTOR IMPRESSION: ?? 1. ?? Cortical irregularity of the tuft of the 2nd distal phalanx as evidence for nondisplaced fracture. Narrative 01/14/2023 4:10 PM MAT INSPECTOR EXAM DESCRIPTION: ?? XR FINGER(S) MIN 2 VIEWS LT REASON FOR STUDY: ?? Left 2nd digit pain after slammed injury 2 days ago TECHNIQUE: ?2 ??views acquired of the left ?? 2nd digit COMPARISON: ?? None FINDINGS: Cortical irregularity of the tuft of the distal phalanx. ?? No extension to the joint space. ??No gross soft tissue swelling. THIS IS AN ELECTRONICALLY VERIFIED FINAL REPORT 01/14/2023 4:07 PM - Electronically signed by ??Charli Melchor M.D. AG: HAFSA D: ??01/14/2023 4:07 PM T: ??01/14/2023 4:07 PM Report ID: [id number] Reading Location: ??[id number] Procedure Note Charli Melchor MD - 01/14/2023 EXAM DESCRIPTION: XR FINGER(S) MIN 2 VIEWS LT REASON FOR STUDY: Left 2nd digit pain after slammed injury 2 days ago TECHNIQUE: 2 views acquired of the left 2nd digit COMPARISON: None FINDINGS: Cortical irregularity of the tuft of the distal phalanx. No extension to the joint space. No gross soft tissue swelling. THIS IS AN ELECTRONICALLY VERIFIED FINAL REPORT 01/14/2023 4:07 PM - Electronically signed by Charli Melchor M.D. AG: HAFSA Report ID: [id number] Reading Location: [id number] IMPRESSION: 1. Cortical irregularity of the tuft of the 2nd distal phalanx as evidence for nondisplaced fracture. Hilaria Garcia APRN, MICAELA IMG DIAGNOSTIC ORDStevie BELLAMY Final Result documented in this encounter Visit Diagnoses Diagnosis Closed displaced fracture of distal phalanx of left index finger, initial encounter- Primary Finger injury, left, initial encounter documented in this encounter Additional Health Concerns Assessment Noted Time PHQ-9 Depression Total Score: 0 04/11/20 20 8:49 AM CDT documented as of this encounter Care Teams Circular Ripsaw Operator Relationship Specialty Start Date End Date Jef Figueroa MD PCP - General Family Medicine 04/11/20 documented as of this encounter
--- OUTSIDE RECORDS SUMMARY | 2024-11-29 03:56 | XMS_ITS | Encounter Summary ---
Author Organization [facility] Address [address] [place] [address] Phone Care Team Providers Care Rope Rider Name Role Phone Jef Figueroa MD Primary Care Provider [phone] Reason for Visit * Reason Comments Tb Test Encounter Details Date Type Department Care Team (Latest Contact Info) Description 11/22/2022 3:00 PM MAILROOM SUPERVISOR Clinical Support [facility] - Family Medicine [facility] [address] [place] [address] [facility] [place] Visit for TB skin test Discharge Disposition: Discharged to home or Selfcare [...] Coronavirus/COVID-19? No / Unsure 01/14/2023 1:56 PM MAILROOM SUPERVISOR documented as of this encounter Functional Status * Over the past 2 weeks, how often have you been bothered by any of the following problems? Question Answer Date of Assessment Author Little interest or pleasure in doing things Not at all 11/26/2022 10:00 AM Jim Quinn APRN, CNP Feeling down, depressed, or hopeless Not at all 11/26/2022 10:00 AM Laly Quinn APRN, CNP Patient Health Questionnaire-2 Score 0 11/26/2022 10:00 AM Laly Quinn APRN, CNP documented as of this encounter H&P Notes * Leilani Wesley RN - 11/22/2022 3:00 PM CST PPD Reading Note PPD read and results entered in [employer]. Result: 0 mm induration. Interpretation: negative If test not read within 48-72 hours of initial placement, patient advised to schedule another appointment to repeat the TB skin test injection. Allergic reaction: no ROOM SUPERVISOR documented in this encounter Plan of Treatment Not on file documented as of this encounter Procedures Procedure Name Priority Date/Time Associated Diagnosis Comments TB INTRADERMAL TEST Routine 11/22/2022 Visit for TB skin test documented in this encounter Results * TB INTRADERMAL TEST (11/22/2022) TB SKIN TEST 0 mm 11/22/2022 Laly Harrison APRN, CNP POINT OF CARE TESTING (M ANUAL) Final Result documented in this encounter Visit Diagnoses Diagnosis Visit for TB skin test Screening examination for pulmonary tuberculosis documented in this encounter Additional Health Concerns Assessment Noted Time PHQ-9 Depression Total Score: 0 04/11/20 20 8:49 AM CDT documented as of this encounter Care Teams Rope Rider Relationship Specialty Start Date End Date Jef Figueroa MD PCP - General Family Medicine 04/11/20 documented as of this encounter
--- OUTSIDE RECORDS SUMMARY | 2024-11-29 03:56 | XMS_ITS | Clinical Summary ---
Author Organization [facility] Care Team Providers Care Dredge Mate Name Role Phone Jef Figueroa MD Primary Care Provider [phone] Allergies Active Allergy Reactions Criticality Noted Date Comments Bee Venom Swelling 04/11/2020 Medications Vit-Fe Fumarate-FA ( VITAMINS PO) Take by mouth. Active ACCRUFeR 30 MG Capsule take one capsule by mouth twice a day 10/08/2024 Active VITAMIN D PO Take by mouth. Active aspirin EC 81 MG Tablet Delayed Response Take 81 mg by mouth daily. Active Active Problems Estimated Date of Delivery Comme nts Yes 11/20/2024 No known active problems Encounters Date Type Department Care Team Description 11/05/2024 1:05 PM PROCEDURES TECH Urgent Care Visit [facility] [address] [place] [address] Hilaria Garcia, DIVE SUPERINTENDENT, RELAY MOTORMAN Viral URI (Primary Dx); Acute cough Discharge Disposition: Discharged to home or Selfcare 11/05/2024 Travel from Last 3 Months Immunizations Immunization Administration Dates Next Due TB Skin Test 11/20/2022 Family History Medical History Relation Name Comments Heart Attack Father Hypertension Father Stroke Father No Known Problems Maternal Grandfather No Known Problems Maternal Grandmother No Known Problems Mother No Known Problems Paternal Grandfather No Known Problems Paternal Grandmother Cancer Sister Relation Name Status Comments Father Alive Maternal Grandfather Maternal Grandmother Mother Alive Paternal Grandfather Paternal Grandmother Sister Alive Social History Tobacco Use Types Packs/Day Years [...] on file Sexual Orientation Not on file Last Filed Vital Signs Vital Sign Reading Time Taken Comments Blood Pressure 104/58 11/05/2024 3:09 PM PROCEDURES TECH Pulse 110 11/05/2024 3:09 PM PROCEDURES TECH Temperature 36.6 ??C (97.8 ??F) 11/05/2024 3:09 PM CS T Respiratory Rate 20 11/05/2024 3:09 PM PROCEDURES TECH Oxygen Saturation 97% 11/05/2024 3:09 PM PROCEDURES TECH Inhaled Oxygen Concentration - - Weight 66.7 kg (147 lb) 01/15/2024 12:54 PM PROCEDURES TECH Height 157.5 cm (5' 2 ) 01/15/2024 12:54 PM PROCEDURES TECH Body Mass Index 26.89 01/15/2024 12:54 PM PROCEDURES TECH Plan of Treatment Health Maintenance Due Date Last Done Comments Hepatitis C Virus (HCV) Screening 1996 TdaP Immunization 1996 Hepatitis B Immunization (1 of 3 - 19+ 3-dose series) 2015 Influenza Immunization (#1) 2024 Pap Smear Discontinued 12/10/2023 Respiratory Syncytial Virus (RSV) Immunization (Adult) Completed 10/15/2024 Meningococcal Immunization (ACWY) Aged Out No longer eligible based on patient's age to complete this topic Pneumococcal Immunization Combined Aged Out No longer eligible b ased on patient's age to complete this topic Rotavirus Immunization Aged Out No lo nger eligible based on patient's age to complete this topic SARS-COV-2 Immunization Discontinued Procedures Procedure Name Priority Date/Time Associated Diagnosis Comments POC INFLUENZA A AND B BY MOLECULAR Routine 11/05/2024 3:17 PM PROCEDURES TECH Acute cough POC SARS-COV-2 BY MOLECULAR Routine 11/05/2024 3:17 PM PROCEDURES TECH Acute cough PATHOLOGY CYTOLOGY TRAVEL REGISTERED NURSE PACU 12/10/2023 12:00 AM PROCEDURES TECH from Last 3 Months or Most Recently Relevant to Health Maintenance Results * POC SARS-COV-2 BY MOLECULAR (11/05/2024 3:17 PM PROCEDURES TECH) SARSCOV2 Negative Negative, INVALID PROCEDURE CONTROL Valid 11/05/2024 3:17 PM PROCEDURES TECH us Hilaria L [employer] DIVE SUPERINTENDENT, RELAY MOTORMAN POINT OF CARE TESTI NG (MANUAL) Final Result * POC INFLUENZA A AND B BY MOLECULAR (11/05/2024 3:17 PM PROCEDURES TECH) INFLUENZA A RNA Negative Negative, Invalid INFLUENZA B RNA Negative Negative, Invalid PROCEDURE CONTROL Valid 11/05/2024 3:17 PM PROCEDURES TECH us Hilaria L [employer] DIVE SUPERINTENDENT, RELAY MOTORMAN POINT OF CARE TESTI NG (MANUAL) Final Result * PATHOLOGY CYTOLOGY TRAVEL REGISTERED NURSE PACU (12/10/2023 12:00 AM PROCEDURES TECH) 12/10/2023 us Provider Scan PATHOLOGY/CYTOLOGY ORDERABLES Fi nal Result SCAN from Last 3 Months or Most Recently Relevant to Health Maintenance [place] [address] [address] [address] Care Teams Dredge Mate Relationship Specialty Start Date End Date Jef Figueroa MD PCP - General Family Medicine 04/11/20
--- OUTSIDE RECORDS SUMMARY | 2024-11-29 03:56 | XMS_ITS | Encounter Summary ---
Author Organization [facility] Address [address] [place] [address] Phone Care Team Providers Care Automatic Steel Tie Adjuster Name Role Phone Jef Figueroa MD Primary Care Provider [phone] Reason for Visit * Reason Onset Date Comments Follow-up 12/19/2022 Encounter Details Date Type Department Care Team ([facility] st Contact Info) Description 12/19/2022 Telephone [facility] [address] [place] [address] Jef Figueroa MD [address] [place] [address] Follow-up Social History Tobacco Use Types Packs/Day Years [...] Coronavirus/COVID-19? No / Unsure 11/26/2022 9:17 AM STRATEGIC PLANNING CONSULTANT documented as of this encounter Miscellaneous Notes * Telephone Encounter - Kiana Mckay, RN - 12/23/2022 11:08 AM CST Called and spoke with Porfirio hazel JOHANNA to let him know physical forms for him and Kristina hiswife have be completed. Ready for tack picker in envelope with Yang/Kristina Denny. Will come to tack picker. TEGIC PLANNING CONSULTANT * Telephone Encounter - Inna Carranza RN - 12/19/2022 2:50 PM STRATEGIC PLANNING CONSULTANT Patient is requesting 11/26/22 encounter notes for Foster care physical to be sent to her through [employer] if possible. She also needs her husnand's sent. Porfirio Denny, 03/11/1994 Please advise if these can be sent via [employer] or mailed to patient. Thank you. TEGIC PLANNING CONSULTANT documented in this encounter Plan of Treatment Not on file documented as of this encounter Visit Diagnoses Not on filedocumented in this encounter Additional Health Concerns Assessment Noted Time PHQ-9 Depression Total Score: 0 04/11/20 20 8:49 AM CDT documented as of this encounter Care Teams Automatic Steel Tie Adjuster Relationship Specialty Start Date End Date Jef Figueroa MD PCP - General Family Medicine 04/11/20 documented as of this encounter
--- OUTSIDE RECORDS SUMMARY | 2024-11-29 03:56 | XMS_ITS | Encounter Summary ---
Author Organization [email or web address] [facility] Care Team Providers Care Classification Inspector Name Role Phone Jef Figueroa MD Primary Care Provider [phone] Encounter Details Date Type Department Care Team (Latest Contact Info) Description 01/04/2021 Travel Social History Tobacco Use Types Packs/Day [...] COVID-19? No / Unsure 01/04/2021 9:08 AM BALANCE WEIGHER documented as of this encounter Plan of Treatment Not on file documented as of this encounter Visit Diagnoses Not on filedocumented in this encounter Additional Health Concerns Infection Onset Date Last Indicated Resolved Time COVID - 19 01/04/2021 01/04/2021 01/06/2021 5:30 AM BALANCE WEIGHER Assessment Noted Time PHQ-9 Depression Total Score: 0 04/11/20 20 8:49 AM CDT documented as of this encounter Care Teams Classification Inspector Relationship Specialty Start Date End Date Jef Figueroa MD PCP - General Family Medicine 04/11/20 documented as of this encounter
--- OUTSIDE RECORDS SUMMARY | 2024-11-29 03:56 | XMS_ITS | Encounter Summary ---
Author Organization [facility] Address [address] [place] [address] Phone Care Team Providers Care Application Design Engineer Name Role Phone Jef Figueroa MD Primary Care Provider [phone] Reason for Visit * Reason Comments Leg Problem sore on lt lower leg by ankle thinks poss staph infection Encounter Details Date Type Department Care Team (Late st Contact Info) Description 04/11/2020 8:30 AM CDT Office Visit [facility] - [facility] [place] [address] [place] [address] Jef Figueroa MD [address] [place] [address] Furuncle of left lower limb (Primary Dx) Discharge Disposition: Discharged to home or Selfcare [...] have Coronavirus / COVID-19? No / Unsure 04/11/2020 8:22 AM CDT documented as of this encounter Last Filed Vital Signs Vital Sign Reading Time Taken Comments Blood Pressure 110/60 04/11/2020 8:51 AM CDT Pulse 78 04/11/2020 8:51 AM CDT Temperature 36.2 ??C (97.2 ??F) 04/11/2020 8:51 AM CD T Respiratory Rate 18 04/11/2020 8:51 AM CDT Oxygen Saturation 98% 04/11/2020 8:51 AM CDT Inhaled Oxygen Concentration - - Weight 64.1 kg (141 lb 4.8 oz) 04/11/2020 8:51 A M CDT Height 162.6 cm (5' 4 ) 04/11/2020 8:51 AM CDT Body Mass Index 24.25 04/11/2020 8:51 AM CDT documented in this encounter Functional Status documented as of this encounter Progress Notes * Sandy Clayton, MARY - 04/11/2020 8:30 AM CDT Kristina Estrada Denisha, 24 y.o., female is here for Leg Problem (sore on lt lower leg by ankle thinks possstaph infection) Medication Refills: Patient reports/denies need for medication refills. Orders Pended: no Requested Prescriptions No prescriptions requested or ordered in this encounter Home Medications Medication Sig Start Date End Date Taking? Authorizing Provider fluconazole (DIFLUCAN) 200 MG Tablet Two tabs Qd x one day and then one tab po daily x 9 days. Patient not taking: Reported on 04/11/2020 03/13/20 Jef Figueroa MD Vit-Fe Fumarate-FA ( VITAMIN PO) Take 1 Tab by mouth daily. Yes ProviderBandar MD VITAMIN D PO Take 1 Tab by mouth daily. Yes Bandar Cardona MD vitamin D, cholecalciferol, (CHOLECALCIFEROL) 5 mcg Tablet Take 5 mcg by mouth daily. ProviderBandar MD There are no discontinued medications. I have reviewed the home medication list with the patient and have reconciled discrepancies. The list is accurate to the best of my knowledge. Smoking Status: Social History Tobacco Use ??? Smoking status: Never Smoker ??? Smokeless tobacco: Never Used Substance Use Topics ??? Alcohol use: Never Frequency: Never ??? Drug use: Never Smoking Cessation Counseling Given: no Health Care Maintenance: Health Maintenance Due Topic Date Due ??? DTaP/Tdap/Td Immunization (1 - Tdap) 2003 ??? Meningococcal B Immunization (1 of 2 - Risk Bexsero 2-dose series) 2006 ??? Human Papillomavirus (HPV) Immunization (1 - Female 2-dose series) 2007 ??? Pap Smear 2017 Orders Pended: no The following BPA's have been addressed with the patient today: BMI, TDAP, PAP, Depression, Fall Risk, Nutrition and Advance Care Plan * Jef Figueroa MD - 04/11/2020 8:30 AM CDT Images from the original note were not included. Subjective: HPI Kristina Denny, 24 y.o. female, is here for an acute visit. She has an area on her left lower leg that is red and irritated. She has had this in the past and they thought that this might be staph. She just had a baby and is . She wants to make sure that the treatment is safe in . She says that this started last Friday and it was a spot that was left after she performed an epilady self waxing. She says that she developed several spots and then this is the only one thatis left. No drainage at this time. She says that it is only tender when she presses on this. Normally no pain. History reviewed. No pertinent past medical history. No past surgical history on file. Social History Socioeconomic History ??? Marital status: Spouse name: Not on file ??? Number of children: Not on file ??? Years of education: Not on file ??? Highest education level: Not on file Occupational History ??? Not on file Social Needs ??? Financial resource strain: Not on file ??? Food insecurity: Worry: Not on file Inability: Not on file ??? Transportation needs: Medical: Not on file Non-medical: Not on file Tobacco Use ??? Smoking status: Never Smoker ??? Smokeless tobacco: Never Used Substance and Sexual Activity ??? Alcohol use: Never Frequency: Never ??? Drug use: Never ??? Sexual activity: Not on file Lifestyle ??? Physical activity: Days per week: Not on file Minutes per session: Not on file ??? Stress: Not on file Relationships ??? Social connections: Talks on phone: Not on file Gets together: Not on file Attends orthodoxy service: Not on file Active member of club or organization: Not on file Attends meetings of clubs or organizations: Not on file Relationship status: Not on file ??? Intimate partner violence: Fear of current or ex partner: Not on file Emotionally abused: Not on file Physically abused: Not on file Forced sexual activity: Not on file Other Topics Concern ??? Not on file Social History Narrative ??? Not on file Current Outpatient Medications on File Prior to Visit Medication Sig Dispense Refill ??? Vit-Fe Fumarate-FA ( VITAMIN PO) Take 1 Tab by mouth daily. ??? VITAMIN D PO Take 1 Tab by mouth daily. ??? vitamin D, cholecalciferol, (CHOLECALCIFEROL) 5 mcg Tablet Take 5 mcg by mouth daily. No current facility-administered medications on file prior to visit. Allergies Allergen Reactions ??? Bee Venom Swelling Family History Problem Relation Age of Onset ??? No Known Problems Mother ??? Heart Attack Father ??? Hypertension Father ??? Stroke Father ??? Cancer Sister ??? No Known Problems Maternal Grandmother ??? No Known Problems Maternal Grandfather ??? No Known Problems Paternal Grandmother ??? No Known Problems Paternal Grandfather Review of Systems Constitutional: Positive for weight loss (just had baby). Negative for chills, diaphoresis, fever and malaise/fatigue. Skin: Negative for itching and rash. Objective: BP 110/60 Pulse 78 Temp 97.2 ??F (36.2 ??C) (Temporal) Resp 18 Ht 5' 4 (1.626 m) Wt 141 lb 4.8 oz (64.1 kg) SpO2 98% BMI 24.25 kg/m?? Physical Exam Vitals signs and nursing note reviewed. Constitutional: General: She is not in acute distress. Appearance: Normal appearance. She is normal weight. She is not ill-appearing or diaphoretic. Skin: General: Skin is warm and dry. Coloration: Skin is not pale. Findings: Lesion present. No erythema. Neurological: Mental Status: She is alert. No Results for Requested Labs in Past 12 Months Assessment/Plan 1. Furuncle of left lower limb Pt is placed on bactrim ds one tab po bid x 10 days. She is to call if this does not improve. Pt voiced understanding. - sulfamethoxazole-trimethoprim DS (BACTRIM DS, SEPTRA DS) 800-160 MG Tablet; Take 1 Tab by mouth 2times daily for 10 days. Dispense: 20 Tab; Refill: 0 documented in this encounter Plan of Treatment Not on file documented as of this encounter Visit Diagnoses Diagnosis Furuncle of left lower limb- Primary documented in this encounter Additional Health Concerns Assessment Noted Time PHQ-9 Depression Total Score: 0 04/11/20 20 8:49 AM CDT documented as of this encounter Care Teams Application Design Engineer Relationship Specialty Start Date End Date Jef Figueroa MD PCP - General Family Medicine 04/11/20 documented as of this encounter
--- OUTSIDE RECORDS SUMMARY | 2024-11-29 03:56 | XMS_ITS | Encounter Summary ---
Author Organization [facility] Address [address] [place] [address] Phone Care Team Providers Care Automobile Locator Name Role Phone Jef Figueroa MD Primary Care Provider [phone] Reason for Visit * Reason Comments Procedure Mole removal Encounter Details Date Type Department Care Team (Late st Contact Info) Description 01/15/2024 1:00 PM BUMPER MACHINE OPERATOR Procedure [facility] [place] [address] [place] [address] Jef Figueroa MD [address] [place] [address] Skin lesion of back (Primary Dx); Changing pigmented skin lesion Discharge Disposition: Discharged to home or Selfcare [...] on file documented as of this encounter Last Filed Vital Signs Vital Sign Reading Time Taken Comments Blood Pressure 112/82 01/15/2024 12:54 PM BUMPER MACHINE OPERATOR Pulse 73 01/15/2024 12:54 PM BUMPER MACHINE OPERATOR Temperature 36.4 ??C (97.6 ??F) 01/15/2024 12:[address] Respiratory Rate 16 01/15/2024 12:54 PM BUMPER MACHINE OPERATOR Oxygen Saturation 99% 01/15/2024 12:54 PM BUMPER MACHINE OPERATOR Inhaled Oxygen Concentration - - Weight 66.7 kg (147 lb) 01/15/2024 12:54 PM BUMPER MACHINE OPERATOR Height 157.5 cm (5' 2 ) 01/15/2024 12:54 PM BUMPER MACHINE OPERATOR Body Mass Index 26.89 01/15/2024 12:54 PM BUMPER MACHINE OPERATOR documented in this encounter Patient Instructions * Attachments The following attachments cannot be sent through Care Everywhere. * Excision of Skin Lesions Care After (Dutch) documented in this encounter Progress Notes * Smitha Menezes MA - 01/15/2024 1:00 PM CST Kristina Estrada Denisha, 28 y.o., female is here for Procedure (Mole removal) Medication Refills: Patient reports/denies need for medication refills. Orders Pended: no Requested Prescriptions No prescriptions requested or ordered in this encounter Home Medications Not on File There are no discontinued medications. I have reviewed the home medication list with the patient and have reconciled discrepancies. The list is accurate to the best of my knowledge. Smoking Status: Social History Tobacco Use Smoking status: Never Smokeless tobacco: Never Vaping Use Vaping Use: Never used Substance Use Topics Alcohol use: Never Drug use: Never Smoking Cessation Counseling Given: no Health Care Maintenance: Health Maintenance Due Topic Date Due Hepatitis B Immunization (1 of 3 - 3-dose series) Never done Hepatitis C Virus (HCV) Screening Never done SARS-COV-2 Immunization (1) Never done DTaP/Tdap/Td Immunization (1 - Tdap) Never done Pap Smear Never done Influenza Immunization (1) Never done Orders Pended: no The following BPA's have been addressed with the patient today: Nutrition documented in this encounter Procedure Notes * Jfe Figueroa MD - 01/15/2024 1:00 PM CST BIOPSY SKIN LESION PROCEDURE NOTE (NON-OR) Procedure Date: 01/15/2024 Performing Physician: Jef Figueroa MD Pre-Procedure Diagnosis: Atypical Nevus Post-Procedure Diagnosis: Same as Pre-Procedure Diagnosis Procedure: Skin Lesion Biopsy Indications: changing skin lesion, suspicious and atypical. Specimens: Sent for pathologic examination nevus Estimated Blood Loss: Minimal ml Complications: none Procedure Details: The risks, benefits, complications, and expected outcomes were discussed with the the patient.. Therisks and potential complications of their problem and purposed treatment include but are not limited to scarring, infection, bleeding, pain, adverse drug reaction, the need for additional procedures, and failure to diagnose a condition. The patient/alternate (see above) concurred with the proposedplan, giving informed consent. The site of the procedure was properly noted/marked. The patient wasidentified as Kristina Denny with Date of 1995 and the procedure verified as Skin Biopsy of , upper back Lesions . The lesions were 1cm and .9cm A Time Out was held and the above information confirmed. Sedation: None required. The patient was placed in the prone/elmer-knife position and the skin was prepped and draped. 2 ml of Lidocaine 1% with epinephrine local anesthetic was injected around and underneath the site. A elliptical excision biopsy in total was performed. This was performed on two separate lesions in the same region.These were closed with 3-0 sutures in an interrupted fashion. A sterile dressing was applied. She tolerated the procedure well and without complications. Instrument, sponge, and needle counts were correct at the conclusion of the procedure. Condition: stable Attending Attestation: I performed the procedure; Jef Figueroa MD, 01/15/2024, 1:09 PM BUMPER MACHINE OPERATOR Referring Physician: No ref. provider found Attending Physician: No att. providers found Primary Care Physician: Jef Figueroa MD documented in this encounter Plan of Treatment Scheduled Orders Name Type Priority Associated Diagnoses Orde r Schedule EXC SKIN BENIG 0.6-1CM TRUNK,ARM,LEG Procedures Routine Skin lesion of back Changing pigmented skin lesion Ordered: 01/20/2024 EXC SKIN BENIG 0.6-1CM TRUNK,ARM,LEG Procedures Routine Skin lesion of back Changing pigmented skin lesion Ordered: 01/20/2024 documented as of this encounter Procedures Procedure Name Priority Date/Time Associated Diagnosis Comments PATHOLOGY SURGICAL Routine 01/15/2024 2: 14 PM BUMPER MACHINE OPERATOR Skin lesion of back Changing pigmented skin lesion PATHOLOGY SURGICAL Routine 01/15/2024 2: 14 PM BUMPER MACHINE OPERATOR Skin lesion of back Changing pigmented skin lesion documented in this encounter Results * PATHOLOGY SURGICAL (01/15/2024 2:14 PM BUMPER MACHINE OPERATOR) Case Report Surgical Pathology Report ? Case: [id number] ? Authorizing Provider: ??Jef Figueroa MD ? Collected: ? 01/15/2024 02:14 PM ? Ordering Location: ? [facility] - [facility] Received: ?01/15/2024 02:16 PM ? Medicine - [place] ? Pathologist: ? Nikhil Brunson MD PhD ? Specimens: ?? A) - Skin, left upper mid back ? B) - Skin, lower ? 01/19/2024 11:06 AM T [facility] FINAL DIAGNOSIS A. Skin, left upper mid back,lesion, excision: - Benign intradermal nevus B. Skin, left mid back, lesion, excision: - Benign intradermal nevus, nevus present at the deep surgical margin 01/19/2024 11:06 AM [facility] Comment [place] nevus cells forming infiltrating nests and trabeculae in the dermis. Maturation is present. 01/19/2024 11:06 AM CDT [facility] Pre-Operative Diagnosis Changing pigmented skin lesion, abnormal skin lesion 01/19/2024 11:06 AM [facility] Gross Description A. left upper mid back The specimen presents in two formalin containers for gross and microscopic examination labeled with the patient's name, Natalia Denny, Part A is designated excision of abnormal skin lesion left upper mid back. The specimen consists of a 1 x 0.8 cm unoriented skin ellipse excised to a depth 0.3 cm. Centrally located on the surface of the skn ellipse is a raised, smooth, dome-shaped, light guevara nodule measuring 0.6 x 0.9 cm. It is raised above the normal-appearin g light guevara skin by 0.5 cm. It will be inked at the excisional margin, sectoned at narrow intervals, and all submitted cassette A1. B. lower Part B is designated excision abnormal skin lesion right mid back. The specimen consists of a single light guevara nodule measuring 0.4 x 0.3 x 0.3 cm. The excisional margin will be inked, the specimen will be bisected, and all submitted cassette B1. KS/sb Total time of fixation is 79 hours, 32 minutes. 01/19/2024 11:06 AM CDT [facility] Microscopic Description Microscopic examination was performed which supports the final diagnosis. All control tissues stained appropriately. 01/19/2024 11:06 AM CDT [facility] Other SPECIMEN FROM SKIN / Unknown Non-Phlebotomy Collection / Unknown 01/15/2024 2:14 PM BUMPER MACHINE OPERATOR 01/15/2024 2:16 PM BUMPER MACHINE OPERATOR Specimen of unknown material (specimen) SPECIMEN FROM SKIN / Unknown 01/15/2024 2:14 PM BUMPER MACHINE OPERATOR 01/15/2024 2:16 PM BUMPER MACHINE OPERATOR us Jef Figueroa MD PATHOLOGY/CYTOLOGY ORDERABLES [facility] Result [facility] [address] [place] [address] * PATHOLOGY SURGICAL (01/15/2024 2:14 PM BUMPER MACHINE OPERATOR) Case Report Surgical Pathology Report ? Case: [id number] ? Authorizing Provider: ??Jef Figueroa MD ? Collected: ? 01/15/2024 02:14 PM ? Ordering Location: ? [facility] Received: ?01/15/2024 02:16 PM ? [facility] [place] ? Pathologist: ? Nikhil Brunson MD PhD ? Specimens: ?? A) - Skin, left upper mid back ? B) - Skin, lower ? 01/19/2024 11:06 AM T [facility] FINAL DIAGNOSIS A. Skin, left upper mid back,lesion, excision: - Benign intradermal nevus B. Skin, left mid back, lesion, excision: - Benign intradermal nevus, nevus present at the deep surgical margin 01/19/2024 11:06 AM [facility] Comment [place] nevus cells forming infiltrating nests and trabeculae in the dermis. Maturation is present. 01/19/2024 11:06 AM CDT [facility] Pre-Operative Diagnosis Changing pigmented skin lesion, abnormal skin lesion 01/19/2024 11:06 AM [facility] Gross Description A. left upper mid back The specimen presents in two formalin containers for gross and microscopic examination labeled with the patient's name, Natalia Denny, Part A is designated excision of abnormal skin lesion left upper mid back. The specimen consists of a 1 x 0.8 cm unoriented skin ellipse excised to a depth 0.3 cm. Centrally located on the surface of the skn ellipse is a raised, smooth, dome-shaped, light guevara nodule measuring 0.6 x 0.9 cm. It is raised above the normal-appearin g light guevara skin by 0.5 cm. It will be inked at the excisional margin, sectoned at narrow intervals, and all submitted cassette A1. B. lower Part B is designated excision abnormal skin lesion right mid back. The specimen consists of a single light guevara nodule measuring 0.4 x 0.3 x 0.3 cm. The excisional margin will be inked, the specimen will be bisected, and all submitted cassette B1. KS/sb Total time of fixation is 79 hours, 32 minutes. 01/19/2024 11:06 AM CDT [facility] Microscopic Description Microscopic examination was performed which supports the final diagnosis. All control tissues stained appropriately. 01/19/2024 11:06 AM CDT [facility] Other SPECIMEN FROM SKIN / Unknown Non-Phlebotomy Collection / Unknown 01/15/2024 2:14 PM BUMPER MACHINE OPERATOR 01/15/2024 2:16 PM BUMPER MACHINE OPERATOR Specimen of unknown material (specimen) SPECIMEN FROM SKIN / Unknown 01/15/2024 2:14 PM BUMPER MACHINE OPERATOR 01/15/2024 2:16 PM BUMPER MACHINE OPERATOR Jef Figueroa MD PATHOLOGY/CYTOLOGY ORDERABLES nal Result [facility] [address] [place] [address] documented in this encounter Visit Diagnoses Diagnosis Skin lesion of back- Primary Unspecified disorder of skin and subcutaneous tissue Changing pigmented skin lesion documented in this encounter Administered Medications Inactive Administered Medications - up to 3 most recent administrations Medication Order MAR Action Action Date Dose Rate Site lidocaine-EPINEPHrine 1 %-[id number] injection 2 mL 2 mL, Injection, ONCE, 1 dose, On Fri01/15/24 at 1330Indications:Skin lesion of back Given 01/15/2024 1:29 PM BUMPER MACHINE OPERATOR 2 mL documented in this encounter Additional Health Concerns Assessment Noted Time PHQ-9 Depression Total Score: 0 04/11/20 20 8:49 AM CDT documented as of this encounter Care Teams Automobile Locator Relationship Specialty Start Date End Date Figueroa, Jef M, MD PCP - General Family Medicine 04/11/20 documented as of this encounter
--- OUTSIDE RECORDS SUMMARY | 2024-11-29 03:56 | XMS_ITS | Encounter Summary ---
Author Organization [facility] Address [address] [place] [address] Care Team Providers Care Software Client Architect Name Role Phone Jef Figueroa MD Primary Care Provider [phone] Encounter Details Date Type Department Care Team (Late st Contact Info) Description 07/13/2024 External Device Data [facility] ABSTRACTION Provider, Abstract NO ADDRESS ON FILE Social History Tobacco Use Types Packs/Day Years Used Date Smoking Tobacco: Never Assessed Comments Unknown Sex and Gender Information Value Date Recorded Sex Assigned at Not on file Legal Sex Female 2:52 PM FISH PACKER Gender Identity Not on file Sexual Orientation Not on file documented as of this encounter Plan of Treatment Not on file documented as of this encounter Visit Diagnoses Not on filedocumented in this encounter Care Teams Software Client Architect Relationship Specialty Start Date End Date Jef Figueroa MD [address] [address] PCP - General Family Practice 10/11/19 documented as of this encounter
--- OUTSIDE RECORDS SUMMARY | 2024-11-29 03:56 | XMS_ITS | Encounter Summary ---
Author Organization [facility] Address [address] [place] [address] Care Team Providers Care Hand Cloth Folder Name Role Phone Unavailable Primary Care Provider Unavailabl e Reason for Visit * Outpatient Services (Routine) - Closed Specialty Diagnoses / Procedures Referred By Contac t Referred To Contact Diagnoses Encounter for routine screening for malformation using ultrasonics Procedures US OB 14+ WKS SINGLE GEST US OB DETAIL SINGLE GEST Epifanio Wyatt MD [address] [place] [address] Phone: tel: fax: Referral ID Status Reason Start Date Expiration Date V isits Requested Visits Authorized [id number] Closed [facility] CTS 01/18/2016 02/17/2017 1 1 Encounter Details Date Type Department Care Team (Late st Contact Info) Description 01/18/2016 12:57 PM CAMERA MACHINIST - 01/18/2016 11:59 PM CAMERA MACHINIST Hospital Encounter [facility] [address] [place] [address] Epifanio Wyatt MD [address] [place] [address] Discharge Disposition: Home or Self Care Social History Tobacco Use Types Packs/Day Years Used Date Smoking Tobacco: Never Assessed Comments Unknown Sex and Gender Information Value Date Recorded Sex Assigned at Not on file Legal Sex Female 2:52 PM CAMERA MACHINIST Gender Identity Not on file Sexual Orientation Not on file documented as of this encounter Plan of Treatment Not on file documented as of this encounter Procedures Procedure Name Priority Date/Time Associated Diagnosis Comments US OB 14+ WKS SINGLE GEST Routine 01/18/2016 1:56 PM CAMERA MACHINIST Encounter for routine screening for malformation using ultrasonics documented in this encounter Results * US OB 14+ WKS SINGLE GEST (01/18/2016 1:56 PM CAMERA MACHINIST) Anatomical Region Laterality Modality Pelvis Ultrasound 01/18/2016 1:22 PM CAMERA MACHINIST Impressions 01/18/2016 2:04 PM CAMERA MACHINIST IMPRESSION ----- Viable intrauterine at 18 4/7 weeks. Measurements are consistent with prior dating. Normal anatomy, growth, placentation, and fluid. No structural anomalies or markers of aneuploidy noted. Narrative 01/18/2016 2:04 PM CAMERA MACHINIST Basic Study ----- Pat. Name: KRISTINA HERNANDEZ Study Date: 01/18/2016 1:22pm Pat. NO: [id number] Referring ??: EPIFANIO WYATT MD Site: [place] [employer] Specialist: Mary Castañeda [facility] : 1995 Age: 20 ----- INDICATION ----- Encounter for anatomic survey Other Condition ?FOB with hx asymmetry to body CODING ----- Diagnosis ? Z36: Encounter for screening of mother. ?XXX.10: Other condition. Procedures ?77735: OB >14 wks (1st Basic). HISTORY ----- OB History ?: 1. METHOD ----- Transabdominal ultrasound examination. ----- Burciaga . Number of fetuses: 1. DATING ----- LMP on: 09/10/2015 GA by LMP 18 w + 4 d ARGELIA by LMP: 06/16/2016 Ultrasound examination on: 01/18/2016 GA by U/S based upon: AC, BPD, Femur, HC GA by U/S 18 w + 5 d ARGELIA by U/S: 06/15/2016 Assigned: Dating performed on 01/18/2016, based on the LMP Assigned GA 18 w + 4 d Assigned ARGELIA: 06/16/2016 BIOMETRY ----- Main Biometry: BPD ?44.7 ? mm ?86% ? 19w 3d ? Hadlock HC ? 161.4 ?mm ?61% ? 18w 6d ? Hadlock AC ? 132.3 ?mm ?52% ? 18w 5d ? Hadlock Femur ?26.0 ? mm ?20% ? 17w 6d ? Hadlock Cerebellum tr ?17.9 ? mm ?19% ? 18w 1d ? Dorys CM ? 3.9 ?mm ?26% ?Nicolaides Nuchal fold ?4.28 ? mm ? Humerus ?25.7 ? mm ?34% ? 18w 0d ? Abhishek Weight Calculation: EFW ?240 ?g ? EFW (lb,oz) ?0 lb 8 ? oz Calculated by ?Hadlock ([id number]-FL) Proportionality Ratios: HC / AC ?1.22 ? 69% ?Nicolaides FL / BPD ? 0.58 ? 2% ? Hadlock FL / AC ?0.20 ? 14% ?Hadlock Head / Face / Neck Biometry: Outer IOD ?28.00 ?mm ?24% ? 18w 1d ? Abhishek GENERAL EVALUATION ----- Cardiac activity: present. FHR 152 bpm. movements: visualized. Presentation: cephalic. Placenta: Placental site: posterior. Umbilical cord: Cord vessels: 3 vessel cord. Amniotic fluid: Amount of AF: normal amount. MVP 5.2 cm. ANATOMY ----- The following structures were visualized with normal appearance: Head ?Head size. Head shape. Brain ? Lateral cerebral ventricles. Cisterna magna. Midline falx. Choroid plexus. Thalami. Cavum septi ?pellucidi. Posterior fossa. Cerebellum. Face ?Profile. Nose. Lips. Palate. Neck ?Nuchal fold. Spine ? Cervical spine. Thoracic spine. Lumbar spine. Sacral spine. Thorax ?Diaphragm. Heart ? Four chamber view. Left ventricular outflow tract. Right ventricular outflow tract. Bicaval view. Aortic ?arch view. Ductal arch view. Cardiac rhythm. Abdominal wall ?Umbilical cord insertion site. Stomach Kidneys ? Right kidney. Left kidney. Bladder Upper extrem. ? Right upper extremity. Right hand. Left upper extremity. Left hand. Lower extrem. ? Right lower extremity. Right foot. Left lower extremity. Left foot. MATERNAL STRUCTURES ----- Cervix ?Visualized. ?Approach - Transabdominal: Cervical length 3.80 cm. Right Ovary ? Visualized. ?Size 4.8 cm x 3.1 cm x 2.2 cm. Mean 3.4 cm. Vol. 17.5 cm?. Left Ovary ?Visualized. ?Size 2.8 cm x 3.4 cm x 3.1 cm. Mean 3.1 cm. Vol. 15.5 cm?. FOLLOW-UP ----- Follow up as clinically indicated. Procedure Note Antonio Urbano MD - 01/18/2016 Basic Study ----- Pat. Name:Deisy HERNANDEZ Date:01/18/2016 1:22pm Pat. NO: [id number] MD:EPIFANIO WYATT [facility] Cast[facility]eda RDMS :1995Age:20 ----- INDICATION ----- Encounter for anatomic survey Other Condition FOB with hx asymmetryto body CODING ----- Diagnosis Z36: Encounter for screening ofmother. XXX.10: Other condition. Procedures [id number]: OB >14 wks (1st Basic). HISTORY ----- OB History : 1. METHOD ----- Transabdominal ultrasound examination. ----- Burciaga . Number of fetuses: 1. DATING ----- LMP on:09/10/2015 GA by LMP18 w + 4 d ARGELIA by LMP:06/16/2016 Ultrasound examination on:01/18/2016 GA by U/S based upon:AC, BPD, Femur, HC GA by U/S18 w + 5 d ARGELIA by U/S:06/15/2016 Assigned:Dating performed on 01/18/2016, based on the LMP Assigned GA18 w + 4 d Assigned ARGELIA:06/16/2016 BIOMETRY ----- Main Biometry: BPD 44.7 mm 86% 19w 3dHadlock HC 161.4 mm 61% 18w 6dHadlock AC 132.3 mm 52% 18w 5dHadlock Femur 26.0 mm 20% 17w 6dHadlock Cerebellum tr 17.9 mm 19% 18w 1dGoldstein CM 3.9 mm 26%Nicolaides Nuchal fold 4.28 mm Humerus 25.7 mm 34% 18w 0dJeanty Weight Calculation: EFW 240 g EFW (lb,oz) 0 lb 8 oz Calculated by Zoltan (SRN-CK-BT-FL) Proportionality Ratios: HC / AC 1.22 69%Nicolaides FL / BPD 0.58 2%Hadlock FL / AC 0.20 14%Hadlock Head / Face / Neck Biometry: Outer IOD 28.00 mm 24% 18w 1dJeanty GENERAL EVALUATION ----- Cardiac activity: present. FHR 152 bpm. movements: visualized. Presentation: cephalic. Placenta: Placental site: posterior. Umbilical cord: Cord vessels: 3 vessel cord. Amniotic fluid: Amount of AF: normal amount. MVP 5.2 cm. ANATOMY ----- The following structures were visualized with normal appearance: Head Head size. Head shape. Brain Lateral cerebral ventricles. Cisterna magna.Midline falx. Choroid plexus. Thalami. Cavum septi pellucidi. Posterior fossa. Cerebellum. Face Profile. Nose. Lips. Palate. Neck Nuchal fold. Spine Cervical spine. Thoracic spine. Lumbar spine.Sacral spine. Thorax Diaphragm. Heart Four chamber view. Left ventricular outflow tract.Right ventricular outflow tract. Bicaval view. Aortic arch view. Ductal arch view. Cardiac rhythm. Abdominal wall Umbilical cord insertion site. Stomach Kidneys Right kidney. Left kidney. Bladder Upper extrem. Right upper extremity. Right hand. Left upperextremity. Left hand. Lower extrem. Right lower extremity. Right foot. Left lowerextremity. Left foot. MATERNAL STRUCTURES ----- Cervix Visualized. Approach - Transabdominal: Cervical length 3.80cm. Right Ovary Visualized. Size 4.8 cm x 3.1 cm x 2.2 cm. Mean 3.4 cm. Vol.17.5 cm?. Left Ovary Visualized. Size 2.8 cm x 3.4 cm x 3.1 cm. Mean 3.1 cm. Vol.15.5 cm?. FOLLOW-UP ----- Follow up as clinically indicated. IMPRESSION IMPRESSION ----- Viable intrauterine at 18 4/7 weeks. Measurements are consistent with prior dating. Normal anatomy, growth, placentation, and fluid. No structural anomalies or markers of aneuploidy noted. us Epifanio Wyatt MD ORDERABLES Final Res ult documented in this encounter Visit Diagnoses Diagnosis Encounter for routine screening for malformation using ultrasonics documented in this encounter
--- OUTSIDE RECORDS SUMMARY | 2024-11-29 03:56 | XMS_ITS | Encounter Summary ---
Author Organization [facility] Address [address] [place] [address] Phone Care Team Providers Care Sales Operations Analyst Name Role Phone Jef Figueroa MD Primary Care Provider [phone] Encounter Details Date Type Department Care Team (Latest Contact Info) Description 01/14/2023 3:27 PM NIGHTCLUB MANAGER - 01/14/2023 11:59 PM NIGHTCLUB MANAGER [facility] [place] [address] [place] [id number] Hilaria Garcia, NOZZLE OPERATOR, SHOP STEWARD [address] [place] [address] Discharge Disposition: Discharged to home or Selfcare [...] Coronavirus/COVID-19? No / Unsure 01/14/2023 1:56 PM NIGHTCLUB MANAGER documented as of this encounter Plan of Treatment Not on file documented as of this encounter Procedures Procedure Name Priority Date/Time Associated Diagnosis Comments XR FINGER(S) MIN 2 VIEWS LT Stat with Interpretation 01/14/2023 3:31 PM NIGHTCLUB MANAGER Finger injury, left, initial encounter documented in this encounter Results * XR FINGER(S) MIN 2 VIEWS LT (01/14/2023 3:31 PM NIGHTCLUB MANAGER) Anatomical Region Laterality Modality UPPER EXTREMITY, Fingers N/A Digital Radiography 01/14/2023 4:07 PM NIGHTCLUB MANAGER Impressions 01/14/2023 4:10 PM NIGHTCLUB MANAGER IMPRESSION: ?? 1. ?? Cortical irregularity of the tuft of the 2nd distal phalanx as evidence for nondisplaced fracture. Narrative 01/14/2023 4:10 PM NIGHTCLUB MANAGER EXAM DESCRIPTION: ?? XR FINGER(S) MIN 2 [...] Electronically signed by ??Charli Melchor M.D. AG: AG D: ??01/14/2023 4:07 PM T: ??01/14/2023 4:07 PM Report ID: [id number] Reading Location: ??[id number] Procedure Note Charli Melchor MD - 01/14/2023 [...] Charli Melchor M.D. AG: HAFSA Report ID: [id number] Reading Location: [id number] IMPRESSION: 1. Cortical irregularity of the tuft of the 2nd distal phalanx as evidence for nondisplaced fracture. Hilaria Garcia NOZZLE OPERATOR, SHOP STEWARD IMG DIAGNOSTIC ORDE RABLES Final Result documented in this encounter Visit Diagnoses Not on filedocumented in this encounter Additional Health Concerns Assessment Noted Time PHQ-9 Depression Total Score: 0 04/11/20 20 8:49 AM CDT documented as of this encounter Care Teams Sales Operations Analyst Relationship Specialty Start Date End Date Jef Figueroa MD PCP - General Family Medicine 04/11/20 documented as of this encounter
--- OUTSIDE RECORDS SUMMARY | 2024-11-29 03:56 | XMS_ITS | Encounter Summary ---
Author Organization [facility] Address [address] [facility] [place] [address] Phone Care Team Providers Care Filling Hauler Weaving Name Role Phone Jef Figueroa MD Primary Care Provider [phone] Encounter Details Date Type Department Care Team (Late st Contact Info) Description 02/26/2021 [facility] [address] [place] [address] Celia Byrd, GUEST EXPERIENCE MANAGER, CERTIFIED PHYSICAL THERAPIST ASSISTANT [address] [place] [address] Social History Tobacco Use Types Packs/Day Years [...] on file documented as of this encounter Progress Notes * Celia Byrd, MANUFACTURING PLANT TECHNICIAN, CERTIFIED PHYSICAL THERAPIST ASSISTANT - 02/26/2021 8:46 PM CDT Date: 02/26/2021 20:21:03 Clinician: Celia Byrd Clinician Patient: Kristina Denny Patient : 1995 Patient Address: [address] [place] [address] Patient Visit Protocol: Direct to video - expanded Patient Summary: Kristina is a 25 year old ( : 1995 ) female who initiated a visit to speak with a provider via video. Reason for visit as reported by the patient (free text): Vomiting,hot and cold flashes, feverish, chills My two kids also have the same symptoms Pertinent COVID-19 (Coronavirus) Information Kristina reports: Chills Nausea, vomiting, and/or diarrhea A fever Headache Kristina denies: Body and/or muscle aches Shortness of breath A new or worsening cough Ageusia Anosmia Sore throat Kristina has not had a close contact with a laboratory-confirmed COVID-19 patient within 14 days of symptom onset. Kristina does not work or volunteer as healthcare worker or a store hand and does not work or volunteer in a healthcare facility. Kristina does not smoke or use smokeless tobacco. She denies and is . She does not menstruate. [facility] Specific Question(s): When asked the question Are you an existing [facility] patient? , Kristina responded Yes, I am an existing patient . MEDICATIONS: fluticasone propionate nasal, cholecalciferol (vitamin D3) oral, ALLERGIES: venom-honey bee Clinician Response: Dear Kristina, Thank you for connecting with [facility]. I suspect you have a viral illness ....stomach flu. Please keep hydrated as possible. You can drink gatorade and pedia-lyte. Try BRAT diet - bread, applesauce, rice, toast, saltine crackers to help with nausea. You can take tylenol / ibuprofen PRN for headache, body aches, fever. If symptoms not improved in next few days, pleas seek in-person care for further evaluation and testing. I can not rule out COVID infection at this time. Please note Zofran may cross into breast milk if you are still your child. Diagnosis: Vomiting, unspecified Diagnosis ICD: R11.10 Triage Notes: I reviewed the patient's history, verified their identity, and explained the visit process. [facility] Assessment Diagnosis: Viral Illness, possible stomach flu Differential Diagnosis: n/a Plan Zofran 4 mg dissolvable tablet every 12 hours as needed for 4 days. Try to stay hydrated. Gatorade or pedia-lyte ok. Can take tylenol or ibuprofen for headache, body aches, fever. Try BRAT diet....bread, rice applesauce, toast, saltine crackers to ease nausea and stomach upset. If not feeling better in next few days please consider seeking in person care and possible COVID testing. Prescription(s): Zofran Subjective Data Chief Complaint: flu like symptoms HPI: Patient connecting tonight with complaints of nausea and vomiting. Patient says she has vomited about 8 times in the last 5 hours. She also has complaints of body aches, headache, and fatigue. Denies URI symptoms. Denies known COVID exposure. Her to small children have also had the same symptoms since Friday. Objective Data Vitals: n/a ROS: neg other than stated in HPI Physical Assessment: Constitutional: No acute distress. Patient is resting comfortably. Judgement intact. Appears sick __ Follow up care: Try to stay hydrated. Gatorade or pedia-lyte ok. Can take tylenol or ibuprofen for headache, body aches, fever. Try BRAT diet....bread, rice applesauce, toast, saltine crackers to ease nausea and stomach upset. If not feeling better in next few days please consider seeking in person care and possible COVID testing. Symptomatic treatment discussed. Signs and symptoms requiring re-evaluation or emergency care discussed. Side effects and risk/benefits of all medications discussed with patient/caregiver. All questions/concerns addressed and answered. Patient received written and verbal instructions regarding this condition. Follow up to be arranged by patient with PCP in 2-3 days for further evaluation if symptoms do not improve or worsen. Counseled patient that there are no certainties when it comes to medical workups. Informed patient that they may have presented to virtual urgent care during the early stages of a serious disease process, but that a lethal or otherwise emergent condition was unlikely to be present at this time. Patient was given extensive verbal return precautions and they voiced understanding. An After Visit Summary was sent electronically to patient. Synchronous Triage: video, status: completed, duration: 819 seconds Prescription: ondansetron HCl (Zofran) 4 mg oral tablet 6 tablet, 3 days supply. Take 1 tablet by mouth 2 times per day for 3 days as needed for nausea. Refills: 0, Refill as needed: no, Allow substitutions: yes Celia Byrd - documented in this encounter Plan of Treatment Not on file documented as of this encounter Visit Diagnoses Not on filedocumented in this encounter Additional Health Concerns Assessment Noted Time PHQ-9 Depression Total Score: 0 04/11/20 20 8:49 AM CDT documented as of this encounter Care Teams Filling Hauler Weaving Relationship Specialty Start Date End Date Jef Figueroa MD PCP - General Family Medicine 04/11/20 documented as of this encounter
--- OUTSIDE RECORDS SUMMARY | 2024-11-29 03:56 | XMS_ITS | Encounter Summary ---
Author Organization [facility] Address [address] [facility] [place] [address] Phone Care Team Providers Care Cray Fishing Hand Name Role Phone Jef Figueroa MD Primary Care Provider [phone] Reason for Visit * Reason Onset Date Comments COVID-19 05/31/2020 Encounter Details Date Type Department Care Team ([facility] Contact Info) Description 05/31/2020 Nurse Triage [facility] Digital Contact Center [address] [place] [address] Jef Figueroa MD [address] [place] [address] COVID-19 Social History Tobacco Use Types Packs/Day Years [...] AM CDT documented as of this encounter Miscellaneous Notes * Telephone Encounter - Yamileth Ward RN - 05/31/2020 8:32 AM CDT Images from the original note were not included. Travel Screening Question Response Do you have any of the following symptoms? Fever;Chills;Muscle pain In the last month, have you been in contact with someone who was confirmed or suspected to have Coronavirus / COVID-19? No / Unsure Have you traveled internationally in the last month? No Travel History Travel since 05/01/20 No documented travel since 05/01/20 COVID-19 Testing Priority for Kristina Denny: 3 Nurse to triage SITUATION: Patient calling with fever, chills, body aches BACKGROUND: started yesterday ASSESSMENT: Symptom Description / Location: Caller reports that had a fever, chills and body aches yesterday Pain (0-10):5/10 Temp: 96.1 tympanic Treatment / Response: none RECOMMENDATION: See care advice and disposition for Guidelines.TEelphone visit scheduled First positive answer recorded, all responses to prior questions were negative. If symptoms increase, change, or if new symptoms develop, call back or call your HCP. Recommendations were based on caller information and are not a diagnosis. Verified and reviewed all triage information with caller. Patient request for an excuse note: (Per CDC: Employers should not require a positive COVID-19 testresult or a healthcare provider's note for employees who are sick to validate their illness, qualify for sick leave, or to return to work.) o If patient continues to request/need a return to work note, ask them to send a request via Spotify to their provider (you may need to activate a Spotify account with them). You may also route an excuse note request to the provider. Inform the patient that the provider will determine if a note will be sent and let them know that a telephone visit may be required. Caller verbalizes understanding of the above information. Yamileth Ward RN Reason for Disposition ??? [1] COVID-19 infection suspected by caller or triager AND [2] mild symptoms (cough, fever, or others) AND [3] no complications or SOB Protocols used: CORONAVIRUS (COVID-19) DIAGNOSED OR [id number] documented in this encounter Plan of Treatment Not on file documented as of this encounter Visit Diagnoses Not on filedocumented in this encounter Additional Health Concerns Assessment Noted Time PHQ-9 Depression Total Score: 0 04/11/20 20 8:49 AM CDT documented as of this encounter Care Teams Cray Fishing Hand Relationship Specialty Start Date End Date Jef Figueroa MD PCP - General Family Medicine 04/11/20 documented as of this encounter
--- OUTSIDE RECORDS SUMMARY | 2024-11-29 03:56 | XMS_ITS | Encounter Summary ---
Author Organization [facility] Address [address] [place] [address] Phone Care Team Providers Care Crystal Gazer Name Role Phone Jef Figueroa MD Primary Care Provider Reason for Visit * Reason Comments Suture Removal Encounter Details Date Type Department Care Team (Latest Contact Info) Description 01/22/2024 1:00 PM CDT Clinical Support [facility] Medical [facility] - Family [facility] [address] [place] [address] [facility], Primary [facility] [place] Skin lesion of back (Primary Dx) Discharge Disposition: Discharged to home [...] as of this encounter Progress Notes * Gloria Nunn RN - 01/22/2024 1:00 PM CDT Kristina presents for suture (s) removal located middle back per order of Dr Figueroa. The wound is/has clean and dry without evidence of infection. 3 suture (s) were removed without difficulty. Wound care and activity instructions were provided. Instructed to contact the office if any questions or concerns. documented in this encounter Plan of Treatment Not on file documented as of this encounter Visit Diagnoses Diagnosis Skin lesion of back- Primary Unspecified disorder of skin and subcutaneous tissue documented in this encounter Additional Health Concerns Assessment Noted Time PHQ-9 Depression Total Score: 0 04/11/20 8:49 AM CDT documented as of this encounter Care Teams Crystal Gazer Relationship Specialty Start Date End Date Jef Figueroa MD PCP - General Family Medicine 04/11/20 documented as of this encounter
--- OUTSIDE RECORDS SUMMARY | 2024-11-29 03:56 | XMS_ITS | Encounter Summary ---
Author Organization [employer] Care Team Providers Care Nursing Consultant Name Role Phone Jef Figueroa MD Primary Care Provider [phone] Encounter Details Date Type Department Care Team (Latest Contact Info) Description 11/27/2023 Travel Social History Tobacco Use Types Packs/Day [...] Health Questionnaire-2 Score 0 11/27/2023 9:36 AM Arlene Colon MA documented as of this encounter Plan of Treatment Not on file documented as of this encounter Visit Diagnoses Not on filedocumented in this encounter Additional Health Concerns Assessment Noted Time PHQ-9 Depression Total Score: 0 04/11/20 20 8:49 AM CDT documented as of this encounter Care Teams Nursing Consultant Relationship Specialty Start Date End Date Jef Figueroa MD PCP - General Family Medicine 04/11/20 documented as of this encounter
--- OUTSIDE RECORDS SUMMARY | 2024-11-29 03:56 | XMS_ITS | Encounter Summary ---
Author Organization [facility] Address [address] [place] [address] Care Team Providers Care Handstitching Machine Collar Feller Name Role Phone Jef Figueroa MD Primary Care Provider [phone] Encounter Details Date Type Department Care Team (Late st Contact Info) Description 08/03/2024 External Device Data [facility] ABSTRACTION Provider, Abstract NO ADDRESS ON FILE Social History Tobacco Use Types Packs/Day Years Used Date Smoking Tobacco: Never Assessed Comments Unknown Sex and Gender Information Value Date Recorded Sex Assigned at Not on file Legal Sex Female 2:52 PM CHEMIST PROTEINS Gender Identity Not on file Sexual Orientation Not on file documented as of this encounter Plan of Treatment Not on file documented as of this encounter Visit Diagnoses Not on filedocumented in this encounter Care Teams Handstitching Machine Collar Feller Relationship Specialty Start Date End Date Jef Figueroa MD [address] [address] PCP - General Family Practice 10/11/19 documented as of this encounter
--- OUTSIDE RECORDS SUMMARY | 2024-11-29 03:56 | XMS_ITS | Clinical Summary ---
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 Gender Identity Not on file Sexual Orientation Not on file Plan of Treatment Health Maintenance Due Date Last Done Comments DTAP/TDAP/TD VACCINES (1 - Tdap) 2015 HEPATITIS B VACCINES (1 of 3 - 19+ 3-dose series) 2015 INFLUENZA VACCINE (#1) 2024 CERVICAL CANCER SCREENING 12/10/2026 12/10/2023 HPV VACCINES Aged Out No longer eligi ble based on patient's age to complete this topic PNEUMOCOCCAL VACCINE 0-64 YEARS Aged Out No longer eligible based on patient's age to complete this topic Insurance [facility] BLUE ACCESS/TRUE BLUE PPO Care Teams Respiratory Care Technician Relationship Specialty Start Date End Date Jef Figueroa MD [address] [id number] PCP - General Family Practice 10/11/19
--- OUTSIDE RECORDS SUMMARY | 2024-11-29 03:56 | XMS_ITS | Encounter Summary ---
Author Organization [facility] Address [address] [place] [address] Phone Care Team Providers Care Pen Rider Name Role Phone Jef Figueroa MD Primary Care Provider [phone] Reason for Visit * Reason Comments Fever Encounter Details Date Type Department Care Team (Late st Contact Info) Description 05/31/2020 11:00 AM CDT Clinical Support [facility] - [facility] [place] [address] [place] [address] Testing, [facility] Nurse [place] Fever, unspecified fever cause; Chills; Body aches Discharge Disposition: Discharged to [...] AM CDT documented as of this encounter Progress Notes * Maryana Hoyos RN - 05/31/2020 11:00 AM CDT Patient was directed to come to [facility] for Covid-19 pre-procedural screening. Patient was instructed to stay in the vehicle for testing. Donned appropriate PPE for collection of specimen. Nasopharyngeal specimen collected, patient tolerated well. MILTON Dyer assisted with the collection process. Patient education provided on pre-procedural self-quarantine instructions. documented in this encounter Plan of Treatment Not on file documented as of this encounter Procedures Procedure Name Priority Date/Time Associated Diagnosis Comments SARS-COV-2 BY MOLECULAR Routine 05/31/2020 10:02 AM CDT Fever, unspecified fever cause Chills Body aches documented in this encounter Results * SARS-COV-2 BY PCR (05/31/2020 10:02 AM CDT) SARSCOV2 NOT DETECTED (Reference Range for this test is Not Detected) 06/01/2020 5:05 PM CDT [facility] Swab NASOPHARYNGEAL STRUCTURE / Unknown Non-Phlebotomy Collection / Unknown 05/31/2020 10:02 AM CDT 05/31/2020 10:02 AM CDT Narrative [facility] - 06/01/2020 5:05 PM CDT Authorized Fact Sheets about this test for providers and patients are available at: https://www.fda.gov/medical-devices/nrtusednb-wcyikoghnu-yqdrhbq-devices/emergen -us e-authorizations us Adam Osman APRN, ASSISTANT OCEANOGRAPHER MICROBIOLOGY - GENERAL ORDERABLES Final Result [facility] [address] [place] [address], documented in this encounter Visit Diagnoses Diagnosis Fever, unspecified fever cause Chills Chills (without fever) Body aches Generalized pain documented in this encounter Additional Health Concerns Infection Onset Date Last Indicated Resolved Time COVID - 19 05/31/2020 05/31/202006/12/2020 3:31 PM CDT Assessment Noted Time PHQ-9 Depression Total Score: 0 04/11/20 8:49 AM CDT documented as of this encounter Care Teams Pen Rider Relationship Specialty Start Date End Date Jef Figueroa MD PCP - General Family Medicine 04/11/20 documented as of this encounter
--- OUTSIDE RECORDS SUMMARY | 2024-11-29 03:56 | XMS_ITS | Encounter Summary ---
Author Organization [employer] Care Team Providers Care Catalyst Plant Supervisor Name Role Phone Jef Figueroa MD Primary Care Provider [phone] Encounter Details Date Type Department Care Team (Latest Contact Info) Description 11/20/2022 Travel Social History Tobacco Use Types Packs/Day [...] suspected to have Coronavirus/COVID-19? No / Unsure 11/20/2022 1:35 PM EMPLOYMENT COACH documented as of this encounter Plan of Treatment Not on file documented as of this encounter Visit Diagnoses Not on filedocumented in this encounter Additional Health Concerns Assessment Noted Time PHQ-9 Depression Total Score: 0 04/11/20 20 8:49 AM CDT documented as of this encounter Care Teams Catalyst Plant Supervisor Relationship Specialty Start Date End Date Jef Figueroa MD PCP - General Family Medicine 04/11/20 documented as of this encounter
--- OUTSIDE RECORDS SUMMARY | 2024-11-29 03:56 | XMS_ITS | Encounter Summary ---
Author Organization [facility] Address [address] [place] [address] Phone Care Team Providers Care Ampoule Filler And Sealer Name Role Phone Jef Figueroa MD Primary Care Provider Reason for Visit * Reason Comments Cough Encounter Details Date Type Department Care Team (Latest Contact Info) Description 11/05/2024 1:05 PM MARINE INSULATOR Urgent Care Visit [facility] - [facility] [place] [address] [place] [id number] Hilaria Garcia, MATHEMATICS EDUCATION PROFESSOR, [address] MAGISTRATE [address] [place] [address] Viral URI (Primary Dx); Acute cough Discharge [...] Comments Blood Pressure 104/58 11/05/2024 3:09 PM MARINE INSULATOR Pulse 110 11/05/2024 3:09 PM MARINE INSULATOR Temperature 36.6 ??C (97.8 ??F) 11/05/2024 3:09 PM CS T Respiratory Rate 20 11/05/2024 3:09 PM MARINE INSULATOR Oxygen Saturation 97% 11/05/2024 3:09 PM MARINE INSULATOR Inhaled Oxygen Concentration - - Weight - - Height - - Body Mass Index - - documented in this encounter Patient Instructions * Patient Instructions* Hilaria Garcia APRN, CNP - 11/05/2024 1:05 PM MARINE INSULATOR Antihistamine and decongestant of choice. May use mseq-baf-kqtbndg generic fluticasone or Nasacort as directed If you use Afrin, do not use for longer than 72 hours. This may cause rebound congestion. Saline nasal spray in nose as needed for congestion Comfort care Tylenol or ibuprofen for fever or body aches. Rest and increase fluids. Increase vitamin C/ zinc/ vitamin D/ vitamin B12 Cool mist vaporizer See family doctor if symptoms worsen or fail to resolve. Care as instructed on AVS If medication was prescribed it was sent to the pharmacy. Take all medication as prescribed. Do not skip a dose and take until completed. Follow up with PCP if the symptoms do not improve Go to the ER if symptoms become severe NE INSULATOR * Attachments The following attachments cannot be sent through Care Everywhere. * Upper Respiratory Infection Adult [place] ([place] Citizen) documented in this encounter Progress Notes * Megan Sewell RN - 11/05/2024 1:05 PM CST Kristina Denny complains of Sinus congestion with drainage and bilateral eye discharge with dry cough noted over the past 4-5 days. She is taking mucinex with no improvement Cough This is a new problem. The current episode started in the past 7 days. The problem has been gradually worsening. The cough is Non-productive. Associated symptoms include nasal congestion, postnasal drip and rhinorrhea. Today's Review of Systems HENT: Positive for congestion, postnasal drip and rhinorrhea. Respiratory: Positive for cough. NE INSULATOR * Megan Sewell RN - 11/05/2024 1:05 PM CST Per order of Hilaria Garcia APN bilateral nasal swab collected for POCT COVID. Patient tolerated well. Per order of Hilaria FRANKN nasal swab collected for POCT influenza. Patient tolerated well. NE INSULATOR * Hilaria Garcia APRN, [address] MAGISTRATE - 11/05/2024 1:05 PM CST HPI: Kristina Denny is a 29 y.o. female in the [facility] care today for cough. Symptoms started 4-5 days ago Severity of symptoms is gradually worsening Associated symptoms include bilateral eye discharge, congestion, postnasal drip, rhinorrhea and drycough Patient is currently taking over the counter mucinex for the symptoms. Smoker: No 37 and 1/2 weeks- baby remains active- no complications No pertinent Past, family, or social history was noted There is no problem list on file for this patient. ROS: Review of Systems Constitutional: Negative for chills, fatigue and fever. HENT: Positive for congestion, postnasal drip and rhinorrhea. Negative for ear pain. Eyes: Positive for discharge (bilateral yellow thin when she woke up). Respiratory: Positive for cough (dry). PE: BP 104/58 (BP Location: Right Arm, BP Position: Sitting, BP Cuff Size: Large) Pulse 110 Temp 97.8 ??F (36.6 ??C) (Temporal) Resp 20 LMP 12/31/2022 (Exact Date) SpO2 97% Physical Exam Vitals and nursing note reviewed. Constitutional: General: She is not in acute distress. Appearance: Normal appearance. She is normal weight. She is not ill-appearing. HENT: Head: Normocephalic and atraumatic. Right Ear: Tympanic membrane normal. Left Ear: Tympanic membrane normal. Nose: Congestion present. Mouth/Throat: Mouth: Mucous membranes are moist. Pharynx: Oropharynx is clear. Cardiovascular: Rate and Rhythm: Normal rate and regular rhythm. Pulses: Normal pulses. Heart sounds: Normal heart sounds. Pulmonary: Effort: Pulmonary effort is normal. No respiratory distress. Breath sounds: Normal breath sounds. Musculoskeletal: Cervical back: Normal range of motion and neck supple. No tenderness. Lymphadenopathy: Cervical: No cervical adenopathy. Skin: General: Skin is warm and dry. Neurological: Mental Status: She is alert and oriented to person, place, and time. ASSESSMENT/PLAN: 1. Acute cough - POC SARS-COV-2 BY MOLECULAR - POC INFLUENZA A AND B BY MOLECULAR 2. Viral URI (Primary) - This is a viral illness and can not be treated with antibiotics as antibiotic do not work on viruses. Antihistamine and decongestant of choice. May use qkhb-epd-wlnqbfs generic fluticasone or Nasacort as directed If you use Afrin, do not use for longer than 72 hours. This may cause rebound congestion. Saline nasal spray in nose as needed for congestion Comfort care Tylenol or ibuprofen for fever or body aches. Rest and increase fluids. Increase vitamin C/ zinc/ vitamin D/ vitamin B12 Cool mist vaporizer See family doctor if symptoms worsen or fail to resolve. AVS from today was printed, discussed with patient/family and given to patient/family Patient Instructions Antihistamine and decongestant of choice. May use ywdq-tji-riewdka generic fluticasone or Nasacort as directed If you use Afrin, do not use for longer than 72 hours. This may cause rebound congestion. Saline nasal spray in nose as needed for congestion Comfort care Tylenol or ibuprofen for fever or body aches. Rest and increase fluids. Increase vitamin C/ zinc/ vitamin D/ vitamin B12 Cool mist vaporizer See family doctor if symptoms worsen or fail to resolve. Care as instructed on AVS If medication [...] verified, with additions or corrections, as appropriate. NE INSULATOR documented in this encounter Plan of Treatment Not on file documented as of this encounter Procedures Procedure Name Priority Date/Time Associated Diagnosis Comments POC SARS-COV-2 BY MOLECULAR Routine 11/05/2024 3:17 PM MARINE INSULATOR Acute cough POC INFLUENZA A AND B BY MOLECULAR Routine 11/05/2024 3:17 PM MARINE INSULATOR Acute cough documented in this encounter Results * POC INFLUENZA A AND B BY MOLECULAR (11/05/2024 3:17 PM MARINE INSULATOR) INFLUENZA A RNA Negative Negative, Invalid INFLUENZA B RNA Negative Negative, Invalid PROCEDURE CONTROL Valid 11/05/2024 3:17 PM MARINE INSULATOR us Hilaria Garcia APRN, [facility]IL[address] MAGISTRATE POINT OF CARE TESTI NG (MANUAL) Final Result * POC SARS-COV-2 BY MOLECULAR (11/05/2024 3:17 PM MARINE INSULATOR) SARSCOV2 Negative Negative, INVALID PROCEDURE CONTROL Valid 11/05/2024 3:17 PM MARINE INSULATOR us Hilaria Garcia APRN, [address]IL[address] MAGISTRATE POINT OF CARE TESTI NG (MANUAL) Final Result documented in this encounter Visit Diagnoses Diagnosis Viral URI- Primary Acute upper respiratory infections of unspecified site Acute cough documented in this encounter Additional Health Concerns Infection Onset Date Last Indicated Resolved Time COVID - 19 11/05/2024 11/05/2024 11/05/2024 3:31 PM MARINE INSULATOR Respiratory Rule-Out 11/05/2024 11/05/2024 024 3:31 PM MARINE INSULATOR Assessment Noted Time PHQ-9 Depression Total Score: 0 04/11/20 20 8:49 AM CDT documented as of this encounter Care Teams Ampoule Filler And Sealer Relationship Specialty Start Date End Date Jef Figueroa MD PCP - General Family Medicine 04/11/20 documented as of this encounter
--- OUTSIDE RECORDS SUMMARY | 2024-11-29 03:56 | XMS_ITS | Encounter Summary ---
Author Organization [facility] Address [address] [place] [address] Phone Care Team Providers Care Trap Operator Name Role Phone Jef Figueroa MD Primary Care Provider [phone] Reason for Visit * Reason Comments Tb Test Encounter Details Date Type Department Care Team (Latest Contact Info) Description 11/20/2022 1:50 PM DIESEL INSTRUCTOR Clinical Support [facility] - Family Medicine [facility] [address] [place] [address] [facility] [place] Visit for TB skin test (Primary Dx) Discharge Disposition: Discharged to home [...] Coronavirus/COVID-19? No / Unsure 11/20/2022 1:35 PM DIESEL INSTRUCTOR documented as of this encounter Progress Notes * Leilani Wesley RN - 11/20/2022 1:50 PM CST PPD Placement note Kristina Denny, 27 y.o. female is here today for placement of PPD test Reason for PPD test: applying for foster care Pt taken PPD test before: yes a while ago Verified in allergy area and with patient that they are not allergic to the products PPD is made of(Phenol or Tween). No: none Is patient taking any oral or IV steroid medication now or have they taken it in the last month? no Has the patient ever received the BCG vaccine?: no Has the patient been in recent contact with anyone known or suspected of having active TB disease?:no Date of exposure (if applicable): no Name of person they were exposed to (if applicable): none Patient's Country of origin?: [place] O: Alert and oriented in NAD. P: PPD placed on 11/20/2022. Patient advised to return for reading within 48-72 hours. EL INSTRUCTOR documented in this encounter Plan of Treatment Not on file documented as of this encounter Results * TB INTRADERMAL TEST (11/22/2022) TB SKIN TEST 0 mm 11/22/2022 Laly Harrison RFID ANALYST, BRANCH OR DEPARTMENT CHIEF LIBRARIAN POINT OF CARE TESTING (M ANUAL) Final Result documented in this encounter Visit Diagnoses Diagnosis Visit for TB skin test- Primary Screening examination for pulmonary tuberculosis documented in this encounter Additional Health Concerns Assessment Noted Time PHQ-9 Depression Total Score: 0 04/11/20 20 8:49 AM CDT documented as of this encounter Care Teams Trap Operator Relationship Specialty Start Date End Date Jef Figueroa MD PCP - General Family Medicine 04/11/20 documented as of this encounter
--- OUTSIDE RECORDS SUMMARY | 2024-11-29 03:56 | XMS_ITS | Encounter Summary ---
Author Organization [employer] Care Team Providers Care Gate Technician Name Role Phone Jef Figueroa MD Primary Care Provider [phone] Encounter Details Date Type Department Care Team (Latest Contact Info) Description 05/31/2020 Travel Social History Tobacco Use Types Packs/Day [...] AM CDT documented as of this encounter Plan of Treatment Not on file documented as of this encounter Visit Diagnoses Not on filedocumented in this encounter Additional Health Concerns Infection Onset Date Last Indicated Resolved Time COVID - 19 05/31/2020 05/31/2020 06/12/2020 3:31 PM CDT Assessment Noted Time PHQ-9 Depression Total Score: 0 04/11/20 20 8:49 AM CDT documented as of this encounter Care Teams Gate Technician Relationship Specialty Start Date End Date Jef Figueroa MD PCP - General Family Medicine 04/11/20 documented as of this encounter
--- OUTSIDE RECORDS SUMMARY | 2024-11-29 03:56 | XMS_ITS | Encounter Summary ---
Author Organization [employer] Care Team Providers Care Hand Paint Mixer Name Role Phone Jef Figueroa MD Primary Care Provider [phone] Encounter Details Date Type Department Care Team (Latest Contact Info) Description 11/22/2022 Travel Social History Tobacco Use Types Packs/Day [...] suspected to have Coronavirus/COVID-19? No / Unsure 11/22/2022 2:51 PM MANUFACTURING ENGINEERING DIRECTOR documented as of this encounter Plan of Treatment Not on file documented as of this encounter Visit Diagnoses Not on filedocumented in this encounter Additional Health Concerns Assessment Noted Time PHQ-9 Depression Total Score: 0 04/11/20 20 8:49 AM CDT documented as of this encounter Care Teams Hand Paint Mixer Relationship Specialty Start Date End Date Jef Figueroa MD PCP - General Family Medicine 04/11/20 documented as of this encounter
--- OUTSIDE RECORDS SUMMARY | 2024-11-29 03:56 | XMS_ITS | Encounter Summary ---
Author Organization [facility] Address [address] [place] [address] Phone Care Team Providers Care Matrix Drier Tender Name Role Phone Jef Figueroa MD Primary Care Provider Reason for Visit * Reason Comments Other Physical for foster care Encounter Details Date Type Department Care Team (Late st Contact Info) Description 11/26/2022 9:30 AM PEDIATRICS PHYSICIAN Office Visit [facility] - [facility] [address] [place] [address] Leighann Harrison, KEYSEATER OPERATOR, PROCESS ARCHITECT [address] [place] [address] Encounter for preventive health examination (Primary Dx); Encounter for screening for other metabolic disorders Discharge Disposition: Discharged to home or Selfcare Social History Tobacco Use Types Packs/Day Years Used Date Smoking Tobacco: Never Smokeless Tobacco: Never Tobacco Cessation:Counseling Given: Yes Alcohol Use Standard Drinks/Week Comments Never 0 [...] Coronavirus/COVID-19? No / Unsure 11/26/2022 9:17 AM PEDIATRICS PHYSICIAN documented as of this encounter Last Filed Vital Signs Vital Sign Reading Time Taken Comments Blood Pressure 124/68 11/26/2022 9:38 AM PEDIATRICS PHYSICIAN Pulse 92 11/26/2022 9:38 AM PEDIATRICS PHYSICIAN Temperature 36.8 ??C (98.3 ??F) 11/26/2022 9:38 AM CS T Respiratory Rate 16 11/26/2022 9:38 AM PEDIATRICS PHYSICIAN Oxygen Saturation 96% 11/26/2022 9:38 AM PEDIATRICS PHYSICIAN Inhaled Oxygen Concentration - - Weight 63 kg (138 lb 12.8 oz) 11/26/2022 9:38 AM PEDIATRICS PHYSICIAN Height 157.5 cm (5' 2 ) 11/26/2022 9:38 AM PEDIATRICS PHYSICIAN Body Mass Index 25.39 11/26/2022 9:38 AM PEDIATRICS PHYSICIAN documented in this encounter Functional Status * Over the past 2 weeks, how often have you been bothered by any of the following problems? Question Answer Date of Assessment Author Little interest or pleasure in doing things Not at all 11/26/2022 10:00 AM PEDIATRICS PHYSICIAN Jim Harrison APRN, CNP Feeling down, depressed, or hopeless Not at all 11/26/2022 10:00 AM PEDIATRICS PHYSICIAN Leighann Harrison APRN, CNP Patient Health Questionnaire-2 Score 0 11/26/2022 10:00 AM PEDIATRICS PHYSICIAN Leighann Harrison APRN, CNP documented as of this encounter Progress Notes * Daija Zurita 11/26/2022 9:30 AM CST Kristina Denny, 27 y.o., female is here for Other (Physical for foster care) Medication Refills: Patient reports/denies need for medication refills. Orders Pended: no Requested Prescriptions No prescriptions requested or ordered in this encounter Home Medications Medication Sig Start Date End Date Taking? Authorizing Provider fluticasone (FLONASE) 50 MCG/ACT Suspension 1-2 Sprays by Nasal route daily. Use in each nostril asdirected. Patient not taking: Reported on 11/26/2022 01/04/21 Evie Mccord APRN, PROCESS ARCHITECT Vit-Fe Fumarate-FA ( VITAMIN PO) Take 1 Tab by mouth daily. Patient not taking: Reported on 11/26/2022 Bandar Cardona MD VITAMIN D PO Take 1 Tab by mouth daily. Patient not taking: Reported on 11/26/2022 Bandra Cardona MD vitamin D, cholecalciferol, (CHOLECALCIFEROL) 5 mcg Tablet Take 5 mcg by mouth daily. Patient not taking: Reported on 11/26/2022 Bandar Cardona MD There are no discontinued medications. I have reviewed the home medication list with the patient and have reconciled discrepancies. The list is accurate to the best of my knowledge. Smoking Status: Social History Tobacco Use ??? Smoking status: Never ??? Smokeless tobacco: Never Substance Use Topics ??? Alcohol use: Never ??? Drug use: Never Smoking Cessation Counseling Given: yes Health Care Maintenance: Health Maintenance Due Topic Date Due ??? Hepatitis B Immunization (1 of 3 - 3-dose series) Never done ??? SARS-COV-2 Immunization (1) Never done ??? DTaP/Tdap/Td Immunization (1 - Tdap) Never done ??? Human Papillomavirus (HPV) Immunization (1 - 2-dose series) Never done ??? Pap Smear Never done ??? Influenza Immunization (1) Never done Orders Pended: no The following BPA's have been addressed with the patient today: BMI, TDAP and Pap ATRICS PHYSICIAN * Leighann Harrison APRN, PROCESS ARCHITECT - 11/26/2022 9:30 AM CST HPI: Patient is a 27 y.o. female who presents today for physical for foster care. Presents today with her two year old daughter. She is with a two year old and six year old. States no acute concerns today. Denies surgical history. She denies use of tobacco and ETOH. She does not take any medication on a daily basis. Medications: Current Outpatient Medications Medication Sig Dispense Refill ??? fluticasone (FLONASE) 50 MCG/ACT Suspension 1-2 Sprays by Nasal route daily. Use in each nostril as directed. (Patient not taking: Reported on 11/26/2022) 1 Bottle 0 ??? Vit-Fe Fumarate-FA ( VITAMIN PO) Take 1 Tab by mouth daily. (Patient not taking: Reported on 11/26/2022) ??? VITAMIN D PO Take 1 Tab by mouth daily. (Patient not taking: Reported on 11/26/2022) ??? vitamin D, cholecalciferol, (CHOLECALCIFEROL) 5 mcg Tablet Take 5 mcg by mouth daily. (Patient not taking: Reported on 11/26/2022) No current facility-administered medications for this visit. Review of Systems Constitutional: Negative. HENT: Negative. Eyes: Negative. Respiratory: Negative. Cardiovascular: Negative. Gastrointestinal: Negative. Musculoskeletal: Negative. Skin: Negative. Neurological: Negative. Psychiatric/Behavioral: Negative. Vitals: 11/26/22 0938 BP: 124/68 BP Location: Left Arm BP Position: Sitting BP Cuff Size: Regular Pulse: 92 Resp: 16 Temp: 98.3 ??F (36.8 ??C) TempSrc: Temporal SpO2: 96% Weight: 138 lb 12.8 oz (63 kg) Height: 5' 2 (1.575 m) Body mass index is 25.39 kg/m??. Physical Exam Vitals and nursing note reviewed. Constitutional: General: She is not in acute distress. Appearance: She is well-developed. She is not diaphoretic. HENT: Head: Normocephalic and atraumatic. Right Ear: Tympanic membrane and external ear normal. Left Ear: Tympanic membrane and external ear normal. Eyes: Conjunctiva/sclera: Conjunctivae normal. Pupils: Pupils are equal, round, and reactive to light. Neck: Trachea: No tracheal deviation. Cardiovascular: Rate and Rhythm: Normal rate and regular rhythm. Heart sounds: Normal heart sounds. No murmur heard. Pulmonary: Effort: Pulmonary effort is normal. No respiratory distress. Breath sounds: Normal breath sounds. No wheezing or rales. Abdominal: General: Bowel sounds are normal. There is no distension. Palpations: Abdomen is soft. Tenderness: There is no abdominal tenderness. There is no guarding or rebound. Musculoskeletal: General: Normal range of motion. Cervical back: Normal range of motion. Skin: General: Skin is warm and dry. Neurological: Mental Status: She is alert and oriented to person, place, and time. Cranial Nerves: No cranial nerve deficit. Psychiatric: Mood and Affect: Mood normal. PHQ-2 Little interest or pleasure in doing things: Not at all Feeling down, depressed, or hopeless: Not at all Initial Score - If the score is 2 or higher, please proceed with the additional evaluation.: 0 PHQ-9 Past, family, surgical, and social history reviewed and updated in the chart. Assessment/Plan: 1. Encounter for preventive health examination - COMPLETE BLOOD COUNT (CBC) WITH DIFF; Future - CMP (COMPREHENSIVE METABOLIC PANEL); Future 2. Encounter for screening for other metabolic disorders - COMPLETE BLOOD COUNT (CBC) WITH DIFF; Future - CMP (COMPREHENSIVE METABOLIC PANEL); Future Patient verbalizes understanding and agrees with plan of care as noted above. New medication discussed with patient and family, including action of medication, potential side effects, interactions, and consequences for not taking it. Patient states understanding of new medication instructions. An After Visit Summary with personalized patient education was printed and given to the patient. Documentation for this visit on 11/26/22 was completed using a template. I have seen and examined the patient. Everything documented was personally performed at this visit with the necessary additions, deletions and changes made as appropriate. ATRICS PHYSICIAN documented in this encounter Miscellaneous Notes * Addendum Note - Leighann Harrison APRN, CNP - 11/26/2022 9:30 AM CSTAddended by: LEIGHANN HARRISON on: 12/11/2022 04:18 PM Modules accepted: Level of Service ATRICS PHYSICIAN documented in this encounter Plan of Treatment Not on file documented as of this encounter Results * (ABNORMAL) CMP (COMPREHENSIVE METABOLIC PANEL) (11/26/2022 10:43 AM PEDIATRICS PHYSICIAN) SODIUM 140 136 - 144 mmol/L 11/26/2022 11:55 AM PEDIATRICS PHYSICIAN [facility] POTASSIUM 4.3 3.5 - 5.1 mmol/L 11/26/2022 11:55 AM PEDIATRICS PHYSICIAN [facility] CHLORIDE 103 100 - 110 mmol/L 11/26/2022 11:55 AM [facility] CO2, VENOUS 28 22 - 32 mmol/L 11/26/2022 11:55 AM [facility] ANION GAP 13.3 8.0 - 20.0 mmol/L 11/26/2022 11:55 AM [facility] GLUCOSE 99 70 - 99 mg/dL 11/26/2022 11:55 AM [facility] BUN 11 6 - 20 mg/dL 11/26/2022 11:55 AM [facility] CREATININE, BLOOD 0.54(L) 0.60 - 1.10 mg/dL 11/26/2022 11:55 AM [facility] BUN/CREATININE RATIO 20 12 - 20 ratio 11/26/2022 11:55 AM [facility] TOTAL PROTEIN 7.3 6.0 - 8.3 g/dL 11/26/2022 11:55 AM [facility] ALBUMIN 4.6 3.5 - 5.2 g/dL 11/26/2022 11:55 AM [facility] Comment: The colormetric methods used for the determination of Albumin may lead to falsely elevated test results in patients suffering from renal failure or insufficiency due to interference with other proteins. A/G RATIO 1.7 1.0 - 2.0 11/26/2022 11:55 AM [facility] CALCIUM 9.5 8.9 - 10.3 mg/dL 11/26/2022 11:55 AM [facility] T BILI 0.3 <=1.2 mg/dL 11/26/2022 11:55 AM [facility] SGOT (AST) 12 <=32 U/L 11/26/2022 11:55 AM [facility] SGPT (ALT) 12 <=41 U/L 11/26/2022 11:55 AM [facility] ALKALINE PHOSPHATASE 64 35 - 105 U/L 11/26/2022 11:55 AM [facility] IS THE PATIENT REQUIRED TO BE FASTING? No 11/26/2022 11:55 AM PEDIATRICS PHYSICIAN [facility] GFR, ESTIMATED >60 >=60 11/26/2022 11:55 AM PEDIATRICS PHYSICIAN [facility] Comment: Creatinine Clearance is the preferred criteria for selecting drug dose adjustments in renally impaired patients. ??The GFR is provided as additional pertinent clinical information. GFR is reported in mL/min/1.73 sq m. Calculation based on the Chronic Kidney Disease Epidemiology Collaboration (CKD- EPI) equation refit without adjustment for race. GFR, EST. >60 >=60 023 11:55 AM PEDIATRICS PHYSICIAN [facility] GFR, EST. NONAFRICAN >60 >=60 11/26/2022 11:55 AM PEDIATRICS PHYSICIAN [facility] Blood Venipuncture / Unknown 11/26/2022 10:43 AM PEDIATRICS PHYSICIAN 11/26/2022 11:22 AM PEDIATRICS PHYSICIAN us Leighann Harrison KEYSEATER OPERATOR, PROCESS ARCHITECT CHEMISTRY ORDERABLES Fin al Result [facility] [address] [place] [address] documented in this encounter Visit Diagnoses Diagnosis Encounter for preventive health examination (Adult)- Primary Routine general medical examination at a health care facility Encounter for screening for other metabolic disorders documented in this encounter Additional Health Concerns Assessment Noted Time PHQ-9 Depression Total Score: 0 04/11/20 20 8:49 AM CDT documented as of this encounter Care Teams Matrix Drier Tender Relationship Specialty Start Date End Date Jef Figueroa MD PCP - General Family Medicine 04/11/20 documented as of this encounter
--- OUTSIDE RECORDS SUMMARY | 2024-11-29 03:56 | XMS_ITS | Encounter Summary ---
Author Organization [facility] Address [address] [place] [address] Phone Care Team Providers Care Heat Seal Operator Name Role Phone Jef Figueroa MD Primary Care Provider [phone] Reason for Visit * Reason Comments Preventive Care Encounter Details Date Type Department Care Team (Late st Contact Info) Description 11/27/2023 9:30 AM INSURANCE ADMINISTRATOR [facility] [place] [facility] [place] [address] [place] [address] Jef Figueroa MD [address] [place] [address] Encounter for preventive health examination (Adult) (Primary Dx); Atypical pigmented skin lesion; Fatigue, unspecified type Discharge Disposition: Discharged to [...] Sign Reading Time Taken Comments Blood Pressure 102/64 11/27/2023 9:36 AM INSURANCE ADMINISTRATOR Pulse 99 11/27/2023 9:36 AM INSURANCE ADMINISTRATOR Temperature 36.4 ??C (97.6 ??F) 11/27/2023 9:36 AM CS T Respiratory Rate 16 11/27/2023 9:36 AM INSURANCE ADMINISTRATOR Oxygen Saturation 98% 11/27/2023 9:36 AM INSURANCE ADMINISTRATOR Inhaled Oxygen Concentration - - Weight 65.8 kg (145 lb) 11/27/2023 9:36 AM INSURANCE ADMINISTRATOR Height 157.5 cm (5' 2 ) 11/27/2023 9:36 AM INSURANCE ADMINISTRATOR Body Mass Index 26.52 11/27/2023 9:36 AM INSURANCE ADMINISTRATOR documented in this encounter Functional Status * Question Answer Date of Assessment Author Little interest or pleasure in doing things Not at all 11/27/2023 9:36 AM Smitha Colon MA Feeling down, depressed, or hopeless Not at all 11/27/2023 9:36 AM INSURANCE ADMINISTRATOR Daily Menezes MA * Over the past 2 weeks, how often have you been bothered by any of the following problems? Question Answer Date of Assessment Author Patient Health Questionnaire-2 Score 0 11/27/2023 9:36 AM INSURANCE ADMINISTRATOR Arlene Menezes MA documented as of this encounter Patient Instructions * Patient Instructions* Jef Figueroa MD - 11/27/2023 9:30 AM INSURANCE ADMINISTRATOR [facility] Preventive Care Advice Female 25-49 Keeping up to date on Preventive Care screenings and immunizations is one way to take care of your health. Studies show that more than half of all Americans do not receive all of the important preventive services they need. Why? Many people are unaware of the preventive services they should be getting based on their age and gender. Your [facility] provider recommends the following tests for you based on your age and gender. Screening for High Blood Pressure Finding and treating high blood pressure helps prevent heart attacks and strokes. Have your blood pressure checked at least once every two years. Blood pressure is represented by two numbers (120/80). If your blood pressure is borderline or higher, it should be checked every year. Borderline is between 120 to 139 on the top and 80 to 89 on the bottom. High Blood Pressure is when the top number is>140 or the bottom number is > 90. A healthy diet and regular exercise helps to keep your blood pressure normal. Your most recent Blood pressure was BP Readings from Last 1 Encounters: 11/27/23 102/64 Screening for High Cholesterol High cholesterol is a major cause of heart disease. Know your cholesterol level. Have it checked atleast once every five years if you are over 44 years old. Screening for Obesity Being overweight or obese creates health problems like diabetes, high blood pressure, high cholesterol, arthritis, cancer, and more. The Body Mass Index (BMI) is a calculation that indicates if your weight is appropriate for your height and should be checked every year. If your BMI is between 25 and 29, you are overweight. If 30 or over, you are considered to be obese. Eating a healthy diet and regular exercise helps you achieve and maintain a healthy weight. Screening for Tobacco Use Tobacco use is the leading cause of preventable and disease. If you smoke, we strongly recommend that you stop smoking. There are many options available such as nicotine replacement therapy, Wellbutrin, Chantix and support groups that you should discuss with your care team. Screening for Unsafe Drinking Drinking too much alcohol is harmful to your health. If you drink alcohol, drink responsibly. If you drink more than is considered safe, talk to your doctor about cutting back. For women, problem drinking is defined as having more than 7 drinks a week or more than 3 drinks at a time. If you are , alcohol can have harmful effects on your baby and you should not drink alcohol during . Screening for Breast Cancer Mammograms help find breast cancer early when it is most treatable. Have a mammogram every one to two years after the age of 50. If you are over 40 or have had breast cancer or a breast biopsy with abnormal (atypical) cells or have a mother, sister or daughter with breast cancer, you may need to start having mammograms earlier or annually. Please discuss this with your provider. Screening for Cervical Cancer (Pap Test) Pap Tests screen for cervical cancer. Finding changes early may prevent women from developing and dying from cervical cancer. No screening needs be done for women before the age of 21 regardless of age of onset of sexual activity. Women age 21-29 should be screened every two years and women after age 30 should be screened every three years, as long as she has had three consecutive normal Pap tests. Screening can be stopped around age 65-70 if there have been no abnormal Pap tests in 10 years. Women with a history of Cervical Intraepithelial Neoplasia (TULIO 2/3+) need screening yearly for 20 years. If you have had a hysterectomy for a non-cancerous condition, you no longer need this test. If you have had an abnormal Pap test in the past 5 years, you will need it rechecked more often. Screening for Chlamydia Chlamydia can cause pelvic inflammatory disease, infertility, and increases the risk for HIV infection. All sexually active women less than 25 years and women 25 years and older, who have new or multiple sex partners and unprotected sex or a history of a sexually transmitted disease should be screened for Chlamydia. This can be done with your Pap test. Screening for Colorectal Cancer Screening helps prevent colorectal cancer by finding precancerous polyps that can be removed and ithelps find cancer early when it is most treatable. Get checked for colorectal cancer beginning at age 50. If you are , you should begin this screening at age 45. The frequency of screening depends on the type of test used. If you have a family history of colorectal cancer, you may need to begin screening before the age of 50. . If you are older than 75 to 80, please discuss the need for continued screening with your physician. Screening for Depression Depression is a treatable condition and is common, yet it is frequently unrecognized. Depression, in particular, is relatively common in the first year after you have a baby. . Simple questionnaires can help you and your doctor determine if you are depressed. Speak with your doctor if you have questions. Influenza Immunization (Flu) A flu shot is the best way to avoid getting influenza. The virus changes from year to year, so you need a flu shot each year. Everyone, 6 months and older, should get a flu shot every year. Advance Directive Everyone is at risk of entering into a medical crisis in which they are not competent to make decisions regarding their health care. It is important to make your wishes known to your loved ones and identify a Durable Power of Rn Staffing for Health Care, who can speak in your behalf if you are incapable of making decisions. We have staff available who can assist you. Please discuss with your care team. Other Recommendations ?? Get the HPV immunization, a series of three shots, if you have not received it up to age 26. TheHPV immunization protects young women from getting some of the viruses that can cause cervical cancer. ?? Get immunized against Hepatitis B if you have not already had the shots. Hepatitis B is a virus that can cause liver cirrhosis or cancer. Vaccination helps prevent Hepatitis B. ?? Update your Tetanus, Diphtheria, Pertussis vaccine (Tdap) every 10 years or get immunized if youdid not receive immunizations as a child or a Tdap booster as an adolescent.. ?? Pneumococcal immunization is recommended if you are at increased risk - please check with your provider if you think this might apply to you. ?? Make sure your vaccinations for polio, MMR and Varicella are up to date. ?? Check with your doctor to see if you need a meningitis vaccine if you are entering college and have not had one. ?? Make sure you take 400-800 micrograms of Folic Acid per day from food sources or supplements to decrease the risk of defects should you become . RANCE ADMINISTRATOR documented in this encounter Progress Notes * Smitha Menezes MA - 11/27/2023 9:30 AM CST Kristina Estrada Denisha, 28 y.o., female is here for Preventive Care Medication Refills: Patient reports/denies need for medication [...] 3 - 3-dose series) Never done ??? Hepatitis C Virus (HCV) Screening Never done ??? SARS-COV-2 Immunization (1) Never done ??? DTaP/Tdap/Td Immunization (1 - Tdap) Never done ??? Pap Smear Never done ??? Influenza Immunization (1) Never done Orders Pended: no The following BPA's have been addressed with the patient today: Depression, Fall Risk and Nutrition RANCE ADMINISTRATOR * Jef Figueroa MD - 11/27/2023 9:30 AM CST Subjective: HPI Kristina Denny, 28 y.o. female, is here for here for physical. Older sister and she had thyroid cancer and she is wainting to have her hormones checked and normal menstrual and check on her fatigue and she is sleep ing ok. Past Medical History Positives Diagnosis Date ??? No pertinent past medical history Past Surgical History: Procedure Laterality Date ??? NO PREVIOUS SURGERY Social History Socioeconomic History ??? Marital status: Spouse name: Not on file ??? Number of children: Not on file ??? Years of education: Not on file ??? Highest education level: Not on file Occupational History ??? Not on file Tobacco Use ??? Smoking status: Never ??? Smokeless tobacco: Never Vaping Use ??? Vaping Use: Never used Substance and Sexual Activity ??? Alcohol use: Never ??? Drug use: Never ??? Sexual activity: Not on file Other Topics Concern ??? Not on file Social History Narrative ??? Not on file Social Determinants of Health Financial Resource Needs: Not on file Food Insecurity Needs: Not on file Transportation Needs: Not on file Physical Activity: Not on file Stress: Not on file Social Integration: Not on file Intimate Partner Violence: Not on file Housing Stability: Not on file No current outpatient medications on file prior to visit. No current facility-administered medications on file prior [...] Grandmother ??? No Known Problems Paternal Grandfather ROS GENERAL: Denies weight changes, fevers, night sweats, and fatigue. SKIN: Denies rash and lesion. HEENT: Denies vision changes, difficulty hearing, rhinorrhea, and sore throat. LUNGS: Denies cough, shortness of breath, and wheezing. HEART: Denies chest pain and palpitations. GI: Denies nausea, vomiting, abdominal pain, and changes in bowel movements. : Denies frequency, dysuria, and nocturia. MSK: Denies myalgias and arthralgias. NEUROLOGIC: Denies headaches, dizziness, tingling, and weakness. ENDOCRINE: Denies cold or heat intolerance and polyuria. HEMATOLOGIC: Denies excessive bleeding. Objective: BP 102/64 (BP Location: Left Arm, BP Position: Sitting) Pulse 99 Temp 97.6 ??F (36.4 ??C) (Temporal) Resp 16 Ht 5' 2 (1.575 m) Wt 145 lb (65.8 kg) LMP 12/31/2022 (Exact Date) SpO2 98% BMI 26.52 kg/m?? Physical Exam VITALS: Vitals signs and nursing note reviewed. Physical Exam: GENERAL: Patient is alert, oriented x3, well-developed, no acute distress, and not diaphoretic. SKIN: warm, dry, normal coloration and turgor, no erythema, and no rashes. HEENT: normocephalic and atraumatic. no scleral icterus, no discharge, conjunctiva normal, and PERRL. external ear normal. external nose normal. No oropharyngeal exudate. NECK: supple, full ROM, trachea midline, and no thyromegaly. No JVD. LUNGS: no chest wall deformities or tenderness, respiratory effort normal, no respiratory distress,normal breath sounds, no stridor, no wheezes, and no rales. HEART: regular rate and rhythm, S1, S2, and no murmurs, gallops or rubs. ABDOMEN: soft, non-tender, non-distended, no rebound, no masses, and no guarding. MUSCULOSKELETAL: full ROM, no tenderness, no deformity, and normal symmetric muscle tone and strength. LYMPHATIC: no cervical adenopathy. NEUROLOGIC: CN II-XII intact, DTR's 2+ throughout, and normal gait. PSYCHIATRIC: behavior normal, thought content normal, and judgment normal. Requested Number of Results for Past 12 Months Component Units 11/27/23 1024 WBC 10(3)/mcL 5.21 HEMOGLOBIN g/dL 14.4 HEMATOCRIT % 44.7 PLATELETCNT 10(3)/mcL 201 CHOLESTEROL mg/dL 178 TRIGLYCRIDES mg/dL 73 LDL mg/dL 110 TSH mIU/L 1.526 Assessment & Plan 1. Encounter for preventive health examination (Adult) Pt is given handout with anticipatory guidance recommendations for their age range. Pt is to followup with us in one year for the next physical. 2. Atypical pigmented skin lesion Will make her appointment to have this removed. She is schedule procedure clinic to biopsy this. 3. Fatigue, unspecified type Will check labs. Denies depression. Has small child and have become foster pts. Now three kids. 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 - COMPLETE BLOOD COUNT (CBC) WITH DIFF; Future - THYROID STIMULATING HORMONE (TSH); Future - THYROXINE (T4) FREE; Future - VITAMIN B12; Future - LIPID PANEL; Future - FOLLICLE STIMULATING HORMONE (FSH); Future - LUTEINIZING HORMONE (LH); Future Pt is asked to follow up with us in 12 months. Pt voiced understanding. Pt is to call or return in the meantime with any problems or concerns. Jef Figueroa MD RANCE ADMINISTRATOR documented in this encounter Plan of Treatment Not on file documented as of this encounter Results * LIPID PANEL (11/27/2023 10:24 AM INSURANCE ADMINISTRATOR) CHOLESTEROL 178 <200 mg/dL 11/27/2023 12:37 PM [facility] TRIGLYCERIDES 73 <150 mg/dL 11/27/2023 12:37 PM [facility] HDL CHOLESTEROL 53 >40 mg/dL 12:37 PM [facility] LDL 110 <130 mg/dL 11/27/2023 12:37 PM [facility] VLDL 15 10 - 50 mg/dL 11/27/2023 12:37 PM [facility] CHOL/HDL RATIO 3.4 0.0 - 4.4 11/27/2023 12:37 PM [facility] NON-HDL CHOLESTEROL 125 <130 mg/dL 11/27/2023 12:37 PM [facility] IS THE PATIENT REQUIRED TO BE FASTING? No 11/27/2023 12:37 PM [facility] Blood Venipuncture / Unknown 11/27/2023 10:24 AM INSURANCE ADMINISTRATOR 11/27/2023 10:24 AM INSURANCE ADMINISTRATOR us Jef Figueroa MD CHEMISTRY ORDERABLES Final Resul t Performing Organization Address City/[facility]/ZIP Co de Phone Number [facility] [address] [place] [address] * VITAMIN B12 (11/27/2023 10:24 AM INSURANCE ADMINISTRATOR) VITAMIN B12 381 213 - 816 pg/mL 11/27/2023 12:59 PM INSURANCE ADMINISTRATOR [facility] Blood Venipuncture / Unknown 11/27/2023 10:24 AM INSURANCE ADMINISTRATOR 11/27/2023 10:24 AM INSURANCE ADMINISTRATOR us Jef Figueroa MD CHEMISTRY ORDERABLES Final Resul t Performing Organization Address City/[facility] Co de Phone Number [facility] [address] [place] [address] * THYROXINE (T4) FREE (11/27/2023 10:24 AM INSURANCE ADMINISTRATOR) T4 FREE 0.8 0.7 - 1.9 ng/dL 11/27/2023 1:05 PM INSURANCE ADMINISTRATOR [facility] Blood Venipuncture / Unknown 11/27/2023 10:24 AM INSURANCE ADMINISTRATOR 11/27/2023 10:24 AM INSURANCE ADMINISTRATOR us Jef Figueroa MD CHEMISTRY ORDERABLES Final Resul t Performing Organization Address City/[facility]/ZIP Co de Phone Number [facility] [address] [place] [address] * THYROID STIMULATING HORMONE (TSH) (11/27/2023 10:24 AM INSURANCE ADMINISTRATOR) TSH 1.526 0.300 - 5.000 mIU/L 11/27/2023 1:05 PM INSURANCE ADMINISTRATOR [facility] Blood Venipuncture / Unknown 11/27/2023 10:24 AM INSURANCE ADMINISTRATOR 11/27/2023 10:24 AM INSURANCE ADMINISTRATOR us Jef Figueroa MD CHEMISTRY ORDERABLES Final Resul t [facility] [address] [place] [address] documented in this encounter Visit Diagnoses Diagnosis Encounter for preventive health examination (Adult)- Primary Routine general medical examination at a health care facility Atypical pigmented skin lesion Fatigue, unspecified type documented in this encounter Additional Health Concerns Assessment Noted Time PHQ-9 Depression Total Score: 0 04/11/20 20 8:49 AM CDT documented as of this encounter Care Teams Heat Seal Operator Relationship Specialty Start Date End Date Jef Figueroa MD PCP - General Family Medicine 04/11/20 documented as of this encounter
--- OUTSIDE RECORDS SUMMARY | 2024-11-29 03:56 | XMS_ITS | Encounter Summary ---
Author Organization [employer] Address [address] [place] [address] Care Team Providers Care Director Global Strategic Publisher Sales Name Role Phone Jef Figueroa MD Primary Care Provider [phone] Encounter Details Date Type Department Care Team (Late st Contact Info) Description 07/13/2024 External Device Data [facility] ABSTRACTION Provider, Abstract NO ADDRESS ON FILE Social History Tobacco Use Types Packs/Day Years Used Date Smoking Tobacco: Never Assessed Comments Unknown Sex and Gender Information Value Date Recorded Sex Assigned at Not on file Legal Sex Female 2:52 PM YEAST SUPERVISOR Gender Identity Not on file Sexual Orientation Not on file documented as of this encounter Plan of Treatment Not on file documented as of this encounter Visit Diagnoses Not on filedocumented in this encounter Care Teams Director Global Strategic Publisher Sales Relationship Specialty Start Date End Date Jef Figueroa MD [address] [address] PCP - General Family Practice 10/11/19 documented as of this encounter
--- OUTSIDE RECORDS SUMMARY | 2024-11-29 03:56 | XMS_ITS | Encounter Summary ---
Author Organization [id number] Care Team Providers Care Recyclable Products Sorter Name Role Phone Jef Figueroa MD Primary Care Provider [phone] Encounter Details Date Type Department Care Team (Latest Contact Info) Description 01/22/2024 Travel Social History Tobacco Use Types Packs/Day [...] documented as of this encounter Care Teams Recyclable Products Sorter Relationship Specialty Start Date End Date Jef Figueroa MD PCP - General Family Medicine 04/11/20 documented as of this encounter
--- OUTSIDE RECORDS SUMMARY | 2024-11-29 03:56 | XMS_ITS | Encounter Summary ---
Author Organization [employer] Care Team Providers Care Pattern Hand Name Role Phone Jef Figueroa MD Primary Care Provider [phone] Encounter Details Date Type Department Care Team (Latest Contact Info) Description 01/14/2023 Travel Social History Tobacco Use Types Packs/Day [...] Coronavirus/COVID-19? No / Unsure 01/14/2023 1:56 PM DIRECTOR PUBLIC documented as of this encounter Plan of Treatment Not on file documented as of this encounter Visit Diagnoses Not on filedocumented in this encounter Additional Health Concerns Assessment Noted Time PHQ-9 Depression Total Score: 0 04/11/20 20 8:49 AM CDT documented as of this encounter Care Teams Pattern Hand Relationship Specialty Start Date End Date Jef Figueroa MD PCP - General Family Medicine 04/11/20 documented as of this encounter
--- OUTSIDE RECORDS SUMMARY | 2024-11-29 03:56 | XMS_ITS | Encounter Summary ---
Author Organization [employer] Care Team Providers Care Pattern Lease Inspector Name Role Phone Jef Figueroa MD Primary Care Provider [phone] Encounter Details Date Type Department Care Team (Latest Contact Info) Description 04/11/2020 Travel Social History Tobacco Use Types Packs/Day [...] AM CDT documented as of this encounter Functional Status documented as of this encounter Plan of Treatment Not on file documented as of this encounter Visit Diagnoses Not on filedocumented in this encounter Additional Health Concerns Assessment Noted Time PHQ-9 Depression Total Score: 0 04/11/20 20 8:49 AM CDT documented as of this encounter Care Teams Pattern Lease Inspector Relationship Specialty Start Date End Date Jef Figueroa MD PCP - General Family Medicine 04/11/20 documented as of this encounter
--- OUTSIDE RECORDS SUMMARY | 2024-11-29 03:56 | XMS_ITS | Encounter Summary ---
Author Organization [facility] Address [address] [place] [address] Phone Care Team Providers Care Loading Unit Operator Seating Name Role Phone Jef Figueroa MD Primary Care Provider [phone] Reason for Visit * Reason Onset Date Comments Referral 01/17/2023 External Orthope dic Referral Encounter Details Date Type Department Care Team (Late st Contact Info) Description 01/17/2023 Telephone [facility] Referral Management Services [address] [place] [address] Jef Figueroa MD [address] [place] [address] Referral (External Orthopedic Referral) Social History Tobacco Use Types Packs/Day Years [...] Coronavirus/COVID-19? No / Unsure 01/14/2023 1:56 PM CLIPPER COUNTERS documented as of this encounter Miscellaneous Notes * Telephone Encounter - Kinsey Baptiste - 01/17/2023 8:38 AM CST SITUATION: Referral Services is requesting provider review for External Orthopedic Referral. BACKGROUND: Referral unable to be processed. ASSESSMENT: Request for provider review due to the following reason(s): Patient refusal or unable to contact patient. RECOMMENDATION: Based on the above information the provider has the following option(s): Multiple attempts have been made to contact patient about referral with no response. No further attempts will be made. Referral closed. PER COUNTERS documented in this encounter Plan of Treatment Not on file documented as of this encounter Visit Diagnoses Not on filedocumented in this encounter Additional Health Concerns Infection Onset Date Last Indicated Resolved Time COVID - 19 11/05/2024 11/05/2024 11/05/2024 3:31 PM CLIPPER COUNTERS Respiratory Rule-Out 11/05/2024 11/05/2024 024 3:31 PM CLIPPER COUNTERS Assessment Noted Time PHQ-9 Depression Total Score: 0 04/11/20 20 8:49 AM CDT documented as of this encounter Care Teams Loading Unit Operator Seating Relationship Specialty Start Date End Date Jef Figueroa MD PCP - General Family Medicine 04/11/20 documented as of this encounter
== END 2024-11-24 12:05 | disposition home or self-care (01) | DRG 807 ==
LOC: ANHLDR 15:28 → ANHOB2 17:52
PROVIDERS: Admitting Provider Obstetrics & Gynecology Gynecology; Visit Provider Obstetrics & Gynecology Gynecology
DX: O70.0 First degree perineal laceration during delivery (principal); Z37.0 Single live birth; Z3A.39 39 weeks gestation of pregnancy
CPT/HCPCS: 36415; 85014; 85018; 85025; 86592; 86703; 86850; 86900; 86901; A9270; G0432; J2210; J2590; J2795; J7120